=== PATIENT | female | born 2005 | race Caucasian/White ===

== ENCOUNTER → 2024-08-20 | Outpatient (CLI) | payer OTHER, SELFPAY ==
--- NOTE | 2024-08-20 14:25 | RAD_ITS ---
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 TECHNIQUE: XR Abdomen 1 View. COMPARISON: None. FINDINGS: BOWEL GAS PATTERN: No dilated bowel loops identified. Scattered stool throughout the colon with 2 markers at the level of the proximal transverse colon, one marker at the level of the distal descending colon, and 9 markers at the level of the rectosigmoid colon. FREE AIR: Not assessed on supine view. CALCIFICATIONS: No abnormal calcifications observed. BONES: Unremarkable. SOFT TISSUES: Intrauterine device in the pelvis. Metallic jewelry at the umbilicus. RAD/Abdomen Single View IMPRESSION: Sitz markers in the colon as above. Electronically Signed: Ainsley Hernández MD at 13:29 EST ,
== END | disposition home or self-care (01) ==
PROVIDERS: PCP Internal Medicine; Referring Provider Nurse Practitioner Acute Care; Visit Provider Nurse Practitioner Acute Care
DX: K59.04 Chronic idiopathic constipation (principal); R14.0 Abdominal distension (gaseous); R10.9 Unspecified abdominal pain
CPT/HCPCS: 74018

== ENCOUNTER → 2024-08-22 | Outpatient (CLI) | payer OTHER, SELFPAY ==
--- NOTE | 2024-08-22 13:20 | RAD_ITS ---
STUDY: X-RAY - ABDOMEN/PELVIS REASON FOR EXAM: Female, 19 years old. 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 COMPARISON: Abdominal x-ray dated August 20, 2024 FINDINGS: Normal visualized lung bases. There is an unremarkable bowel gas pattern. There is no demonstrated free abdominal air. IUD noted. All of the previous Sitzmarks have cleared the colon except 1 which is now in the rectum. Moderate stool is seen throughout the colon. Normal soft tissue structures. Normal visualized osseous structures. RAD/Abdomen Single View IMPRESSION: 1. All of the previous Sitzmarks have cleared the colon except 1 which is now in the rectum. Moderate stool is seen throughout the colon. Electronically Signed: David Lemus MD at 9:25 EST ,
== END | disposition home or self-care (01) ==
LOC: RAD 13:11
PROVIDERS: PCP Internal Medicine; Referring Provider Nurse Practitioner Acute Care; Visit Provider Nurse Practitioner Acute Care
DX: K59.04 Chronic idiopathic constipation (principal); R14.0 Abdominal distension (gaseous); R10.9 Unspecified abdominal pain
CPT/HCPCS: 74018

== ENCOUNTER → 2025-03-14 | Outpatient (CLI) | payer OTHER, SELFPAY ==
--- OUTSIDE RECORDS SUMMARY | 2025-03-14 10:38 | XMS RPT_ITS | CCD ---
Author Organization [facility] Care Team Providers Care Firm Administrator Name Role Phone Castillo Vick Unavailable Unavailable Unavailable Sujata Gonzalez Unavailable Spring Deepa CALI Primary Care Provider None, No PCP Unavailable Unavailable Macho LOPEZ, Ricky Bob Primary Care Provide r SEVERINO GATICA Admitting Unavail able SEVERINO GATICA Attending Unavail able RICKY PRITCHARD Primary Care Unavail able Macho LOPEZ, Ricky Bob Primary Care Provide r Ricky Pritchard Unavailable [phone] Robbie Olivera Unavailable Unavailable Brendan Carrillo MD Primary Care Provider MD BRENDAN CARRILLO Primary Care U MD BRENDAN Butt Attending U Ms. Robbie Whipple Attending ALEXX Knapp Attending Unavailable RICKY PRITCHARD Primary Care Unavail able RICKY PRITCHARDSTE Primary Care Unavail able ЕКАТЕРИНА HOLT Attending Unavailable Grazyna VENEGAS Attending Unavailable Grazyna VENEGAS Attending Unavailable BRENDAN CARRILLO Primary Care Unavailable RICKY PRITCHARD Primary Care Unavail able JAVAN IRAHETA Attending RICKY Hernandes Primary Care Unavail able RICKY PRITCHARD Attending Unavail able JAVAN IRAHETA Attending Irwin PRITCHARD, RICKY BOB Primary Care Unavail able MACHO, RICKY JONATHAN Primary Care Unavail able SERA MELVIN Attending Unavailable COLLETTE SAMUEL Attending Unavailable TAVALLAEE, BRENDAN M Primary Care Unavailable Joan Iraheta Attending Unavailable Tavallaee, Brendan Referring Unavailable Tavallaee, Brendan Primary Care Unavailable Joan Iraheta Attending Unavailable Joan Iraheta Referring Unavailable Tavallaee, Brendan Primary Care Unavailable Joan Iraheta Attending Unavailable Joan Iraheta Referring Unavailable Tavallaee, Brendan Primary Care Unavailable Joan Iraheta Attending Unavailable Tavallaee, Brendan Primary Care Unavailable Tavallaee, Brendan Referring Unavailable Candi Yoo Attending Unavailable Tavallaee, Brendan Referring Unavailable Tavallaee, Brendan Primary Care Unavailable Joan Iraheta Attending Unavailable Joan Iraheta Referring Unavailable Tavallaee, Brendan Primary Care Unavailable Jesusallaee Brendan LOPEZ Primary Care Provider [phone] JESUSALLADITYAEMEBRENDAN Tee Attending Unavailable TAVALLAEE, BRENDAN Tee Primary Care Unavailable TAVALLAEE, BRENDAN Tee Attending Unavailable TAVALLAEE, BRENDAN Tee Primary Care Unavailable TAVALLAEE, BRENDAN Tee Attending Unavailable TAVALLAEE, BRENDAN Tee Primary Care Unavailable TAVALLAEE, BRENDAN Tee Attending Unavailable TAVALLAEE, BRENDAN Tee Primary Care Unavailable TAVALLAEE, BRENDAN Tee Attending Unavailable TAVALLAEE, BRENDAN Tee Primary Care Unavailable TAVALLAEE, BRENDAN Tee Attending Unavailable TAVALLAEE, BRENDAN Tee Primary Care Unavailable TAVALLAEE, BRENDAN Tee Attending Unavailable TAVALLAEE, BRENDAN Tee Primary Care Unavailable TAVALLAEE, BRENDAN Tee Primary Care Unavailable ALEXANDRIA SHAFFER Attending Unavailable TAVALLAEE, BRENDAN M Primary Care Unavailable CORI HERNANDEZ Attending Unavailable TAVALLAEE, BRENDAN M Referring Unavailable TAVALLAEE, BRENDAN Tee Primary Care Unavailable BRENDAN CARRILLO Attending Unavailable BRENDAN CARRILLO Referring Unavailable BRENDAN CARRILLO Primary Care Unavailable BRENDAN CARRILLO Primary Care Unavailable ROBBIE OLIVERA Attending Unavailable Allergies Allergy Classification Reported Allergen(s) Allergy Type Date of Onset Reaction(s) Facility (3 sources) predniSONE; Translations: [PREDNISONE] Drug Allergy 08-14-2024 [facility] Repository (3 sources) predniSONE Drug Allergy 02-23-2025 [facility] Medications Current Medications Medication Drug Class(es) Dates Sig (Normalized) Sig (Original) amoxicillin 875 mg oral tablet (2 sources) Penicillin-class Antibacterial Start: 08-06-2024 End: 08-16-2024 take 1 tablet by mouth twice daily amoxicillin (Amoxil) 875 mg tablet Indications: Acute non-recurrent maxillary sinusitis Take 1 tablet (875 mg) by mouth 2 times a day for 10 days. 20 tablet 08/06/2024 08/16/2024 Active amoxicillin 875 mg / clavulanate 125 mg oral tablet (1 source) Penicillin-class Antibacterial Start: 03-02-2025 End: 03-12-2025 take 1 tablet by mouth twice daily amoxicillin-clavul anate (Augmentin) 875-125 mg tablet Indications: Acute bacterial sinusitis Take 1 tablet by mouth 2 times a day for 10 days. 20 tablet 03/02/2025 03/12/2025 Active azithromycin 250 mg oral tablet (1 source) Macrolide Antimicrobial Start: 06-27-2023 End: 07-02-2023 azithromycin (Zithromax Z-Charles) 250 mg tablet Indications: Non-recurrent acute serous otitis media of right ear Take 2 tablets (500 mg) on Day 1, followed by 1 tablet (250 mg) once daily on Days 2 through 5. 6 tablet 0 06/27/2023 07/02/2023 Active 12 hr cetirizine hydrochloride 5 mg / pseudoephedrine hydrochloride 120 mg extended release oral tablet (1 source) alpha-Adrenergic Agonist, Histamine-1 Receptor Antagonist Start: 03-02-2025 End: 03-16-2025 take 1 tablet by mouth twice daily cetirizine-pseudoe phedrine (ZyrTEC-D) 5-120 mg 12 hr tablet Indications: Acute bacterial sinusitis Take 1 tablet by mouth 2 times a day for 14 days. 28 tablet 03/02/2025 03/16/2025 Active ciprofloxacin 500 mg oral tablet (1 source) Quinolone Antimicrobial Start: 03-05-2024 End: 03-12-2024 take 1 tablet by mouth twice daily ciprofloxacin (Cipro) 500 mg tablet Indications: Colitis Take 1 tablet (500 mg) by mouth 2 times a day for 7 days. 14 tablet 03/05/2024 03/12/2024 Discontinued (Therapy completed) 1 ml dexamethasone phosphate 4 mg/ml injection (1 source) Corticosteroid Start: 08-12-2024 dexAMETHasone (Decadron) injection 4 mg Start: 08-12-2024 dexAMETHasone (Decadron) injection 4 mg dexamethasone 1 mg/ml / neomycin 3.5 mg/ml / polymyxin b [id number] unt/ml ophthalmic suspension (1 source) Aminoglycoside Antibacterial, Polymyxin-class Antibacterial, Corticosteroid Start: 03-02-2025 [id number]-[id number] sone (Maxitrol) 3.5mg/mL-10,000 unit/mL-0.1 % ophthalmic suspension 03/02/2025 Active [id number] 0.3 ml EPINEPHrine 1 mg/ml auto-injector (2 sources) alpha-Adrenergic Agonist, beta-Adrenergic Agonist, Catecholamine Start: 02-25-2025 End: 02-25-2026 EPINEPHrine (Epipen) 0.3 mg/ 0.3 mL injection syringe Indications: Allergic rhinitis, unspecified seasonality, unspecified trigger Inject 0.3 mL (0.3 mg) into the muscle if needed for anaphylaxis. Call 911 after use. 1 each 3 02/25/2025 02/25/2026 Active ergocalciferol 1.25 mg oral capsule (6 sources) Provitamin D2 Compound Start: 04-10-2023 End: 04-10-2024 take 1 capsule by mouth every week ergocalciferol (Vitamin D-2) 1.25 MG (29057 UT) capsule Indications: Vitamin D deficiency Take 1 capsule (50,000 Units) by mouth 1 (one) time per week. 12 capsule 3 04/11/2023 04/10/2024 Active Hair, skin and Nails (1 source) Hair, skin and N ails Quantity: 0 Refills: 0 Ordered: 13-Nov-2022 Domitila Stewart Generic Substitution Allowed hyoscyamine sulfate 0.125 mg oral tablet (20 sources) Start: 03-12-2024 End: 08-22-2024 take 1 tablet by mouth four times daily as needed for diarrhea hyoscyamine (Levsin) 0.125 mg tablet Indications: Colitis , Irritable bowel syndrome with diarrhea Take 1 tablet (0.125 mg) by mouth 4 times a day as needed for cramping or diarrhea for up to 10 days. 40 tablet 08/12/2024 Active Start: 01-02-2024 End: 05-15-2024 take 1 tablet by mouth twice daily hyoscyamine (Anaspaz, Levsin) 0.125 mg tablet Indications: Postprandial epigastric pain take 1 tablet by mouth twice a day 60 tablet 01/02/2024 05/15/2024 Discontinued (Therapy completed) Start: 04-10-2023 End: 07-09-2023 take 1 tablet by mouth twice daily hyoscyamine (Levsin) 0.125 mg tablet Indications: Postprandial epigastric pain Take 1 tablet (0.125 mg) by mouth 2 times a day. 60 tablet 1 05/10/2023 07/09/2023 Active End: 01-23-2024 take 1 tablet under the tongue every four hours as needed hyoscyamine (LEVSIN/SL) 0.[address] 1 (one) tablet (0.125 mg total) under the tongue every 4 (four) hours as needed for cramping . 01/23/2024 Discontinued Lactobacillus acidophilus (16 sources) Start: 08-12-2024 End: 08-12-2025 take 2 capsules by mouth once daily lactobacillus acidophilus (Acidophilus) capsule Indications: Colitis , Irritable bowel syndrome with diarrhea Take 2 capsules by mouth once daily. 08/12/2024 08/12/2025 Active Start: 06-12-2024 End: 08-12-2024 take 2 capsules by mouth once daily lactobacillus acidophilus (Acidophilus) capsule Indications: Colitis , Irritable bowel syndrome with diarrhea Take 2 capsules by mouth once daily. 60 capsule 11 06/12/2024 08/12/2024 Discontinued (Reorder) Start: 06-12-2024 End: 06-12-2025 take 2 capsules by mouth once daily lactobacillus acidophilus (Acidophilus) capsule Indications: Colitis , Irritable bowel syndrome with diarrhea Take 2 capsules by mouth once daily. 60 capsule 11 06/12/2024 06/12/2025 Active Start: 05-15-2024 End: 06-12-2024 take 2 capsules by mouth once daily lactobacillus acidophilus (Acidophilus) capsule Indications: Irritable bowel syndrome with diarrhea Take 2 capsules by mouth once daily. 60 capsule 11 05/15/2024 06/12/2024 Discontinued (Reorder) Start: 05-15-2024 End: 05-15-2025 take 2 capsules by mouth once daily lactobacillus acidophilus (Acidophilus) capsule Indications: Irritable bowel syndrome with diarrhea Take 2 capsules by mouth once daily. 60 capsule 11 05/15/2024 05/15/2025 Active Start: 05-10-2023 End: 05-15-2024 take 2 capsules by mouth once daily lactobacillus acidophilus (Acidophilus) capsule Indications: Irritable bowel syndrome with diarrhea Take 2 capsules by mouth once daily. 60 capsule 11 05/10/2023 05/15/2024 Discontinued (Reorder) Start: 05-10-2023 End: 05-09-2024 take 2 capsules by mouth once daily lactobacillus acidophilus (Acidophilus) capsule Indications: Irritable bowel syndrome with diarrhea Take 2 capsules by mouth once daily. 60 capsule 11 05/10/2023 05/09/2024 Active levonorgestrel 0.915300 mg/hr intrauterine system (20 sources) Progestin, Progestin-containing Intrauterine Device Start: 06-09-2024 Levonorgestrel 14 mcg/24 hours (3 yrs) 13 mg IUD 1 Each Start: 06-09-2024 1 each, Intrau terine, 8 Year Duration, First dose on 06/09/24 at 1645, CATEGORY C HAZARDOUS DRUG use safe handling precautions. Use reference link to view PPE guidelines. Start: 06-29-2019 End: 06-09-2024 levonorgestreL (KYLEENA) IUD iud 1 (one) each by Intrauterine route once . 06/29/2019 06/09/2024 Discontinued levonorgestreL ( Kyleena) 17.5 mcg/24 hrs (5 yrs) 19.5 mg intrauterine device by intrauterine route. Active Kyleena IUD Parveen tity: 0 Refills: 0 Ordered: 08-Mar-2021 DO Active loratadine 10 mg oral tablet (2 sources) Start: 02-25-2025 End: 05-26-2025 take 1 tablet by mouth once daily loratadine (Claritin) 10 mg tablet Indications: Allergic rhinitis, unspecified seasonality, unspecified trigger Take 1 tablet (10 mg) by mouth once daily. 30 tablet 2 02/25/2025 05/26/2025 Active metroNIDAZOLE 500 mg oral tablet (1 source) Nitroimidazole Antimicrobial Start: 03-05-2024 End: 03-12-2024 take 1 tablet by mouth three times daily metroNIDAZOLE (Flagyl) 500 mg tablet Indications: Colitis Take 1 tablet (500 mg) by mouth 3 times a day for 7 days. 21 tablet 03/05/2024 03/12/2024 Discontinued (Therapy completed) olopatadine 2 mg/ml ophthalmic solution (4 sources) Histamine-1 Receptor Inhibitor Start: 02-25-2025 take 1 drop(s) into the eye(s) twice daily olopatadine (Pataday Once Daily Relief) 0.2 % ophthalmic solution Indications: Mucopurulent conjunctivitis of both eyes Administer 1 drop into both eyes 2 times a day. 5 mL 02/25/2025 Active Start: 02-23-2025 End: 02-25-2025 take 1 drop(s) into the eye(s) once daily olopatadine (Pataday Once Daily Relief) 0.2 % ophthalmic solution Indications: Mucopurulent conjunctivitis of both eyes Administer 1 drop into both eyes once daily. 5 mL 02/23/2025 02/25/2025 Discontinued (Reorder) ondansetron 4 mg disintegrating oral tablet (5 sources) Serotonin-3 Receptor Antagonist Start: 08-06-2024 End: 08-13-2024 take 1 tablet by mouth every eight hours for nausea ondansetron ODT (Zofran-ODT) 4 mg disintegrating tablet Indications: Acute non-recurrent maxillary sinusitis Dissolve 1 tablet (4 mg) in the mouth every 8 hours if needed for nausea or vomiting for up to 7 days. 20 tablet 08/06/2024 08/13/2024 Active Start: 03-12-2024 End: 03-19-2024 take 1 tablet by mouth every eight hours for nausea ondansetron (Zofran) 4 mg tablet Indications: Irritable bowel syndrome with diarrhea , Colitis Take 1 tablet (4 mg) by mouth every 8 hours if needed for nausea or vomiting for up to 7 days. 20 tablet 03/12/2024 03/19/2024 Start: 11-13-2022 take 1 tablet by deshawn th every six hours ondansetron 4 mg oral tablet, disintegrating ; 1 tab(s) orally every 6 hours Quantity: 12 Refills: 0 Ordered: 13-Nov-2022 Robbie Olivera Start: 13-Nov-2022 Generic Substitution Allowed polyethylene glycol 3350 22524 mg powder for oral solution (1 source) Osmotic Laxative Start: 03-25-2024 End: 04-24-2024 polyethylene glycol (Glycolax, Miralax) 17 gram packet Indications: Constipation, unspecified constipation type Take 17 g by mouth once daily. Mix 1/2 cap (8.5g) into 4 ounces of fluid. 30 packet 03/25/2024 04/24/2024 Active polymyxin b 49793 unt/ml / trimethoprim 1 mg/ml ophthalmic solution (3 sources) Dihydrofolate Reductase Inhibitor Antibacterial, Polymyxin-class Antibacterial Start: 02-23-2025 End: 03-05-2025 take 1 drop(s) into the eye(s) every four hours polymyxin B sulf-trimethoprim (Polytrim) ophthalmic solution Indications: Mucopurulent conjunctivitis of both eyes Administer 1 drop into both eyes every 4 hours for 10 days. 10 mL 02/23/2025 03/05/2025 Active predniSONE 10 mg oral tablet (2 sources) Start: 08-12-2024 End: 08-17-2024 take 1 tablet by mouth three times daily predniSONE (Deltasone) 10 mg tablet Indications: Hives Take 1 tablet (10 mg) by mouth 3 times a day for 5 days. 15 tablet 08/12/2024 08/17/2024 Active Start: 06-27-2023 End: 07-02-2023 take 1 tablet by mouth once daily predniSONE (Deltasone) 20 mg tablet Indications: Acute upper respiratory infection Take 1 tablet (20 mg) by mouth once daily for 5 days. Start tomorrow 5 tablet 0 06/27/2023 07/02/2023 Active Completed/Discontinued Medications Medication Drug Class(es) Dates Sig (Normalized) Sig (Original) benzonatate 100 mg oral capsule (1 source) Non-narcotic Antitussive Start: 11-02-2021 take 1-2 capsules by mouth three times daily as needed for cough Benzonatate 100 MG Oral Capsule TAKE 1 TO 2 CAPSULES BY MOUTH UP TO 3 TIMES A DAY NEEDED FOR COUGH Quantity: 20 Refills: 0 Ordered: 02-Nov-2021 DO Start : 02-Nov-2021 Active budesonide 3 mg delayed release oral capsule (3 sources) Corticosteroid Start: 06-12-2024 End: 08-12-2024 take 1 capsule by mouth every twenty-four hours budesonide EC (Entocort EC) 3 mg 24 hr capsule Indications: Colitis Take 3 capsules (9 mg) by mouth once daily. 90 capsule 1 06/12/2024 08/12/2024 Discontinued (Therapy completed) busPIRone hydrochloride 10 mg oral tablet (16 sources) Start: 09-11-2022 End: 01-23-2024 take 1 tablet by mouth three times daily as needed for anxiety busPIRone (BUSPAR) 10 MG tablet Indications: Anxiety Take 1 (one) tablet (10 mg total) by mouth 3 (three) times a day as needed (anxiety) . 90 tablet 09/11/2022 01/23/2024 Discontinued Start: 08-04-2021 End: 08-04-2022 take 1 tablet by mouth three times daily as needed for anxiety busPIRone (BUSPAR) 10 MG tablet Indications: Anxiety Take 1 (one) tablet (10 mg total) by mouth 3 (three) times a day as needed (anxiety) . 90 tablet 3 08/04/2021 08/04/2022 Active Start: 05-23-2021 End: 05-23-2022 take 1 tablet by mouth three times daily as needed for anxiety busPIRone (BUSPAR) 5 MG tablet Indications: Anxiety Take 1 (one) tablet (5 mg total) by mouth 3 (three) times a day as needed (anxiety) . 90 tablet 1 05/23/2021 08/04/2021 Discontinued (Reorder) busPIRone Quanti ty: 0 Refills: 0 Ordered: 13-Nov-2022 Domitila Stewart Generic Substitution Allowed dicyclomine hydrochloride 10 mg oral capsule (9 sources) Anticholinergic Start: 10-31-2021 End: 12-07-2022 take 1 capsule by mouth three times daily as needed dicyclomine (BENTYL) 10 MG capsule Indications: Irritable bowel syndrome with diarrhea Take 1 (one) capsule (10 mg total) by mouth 3 (three) times a day as needed . 90 capsule 1 12/07/2021 11/17/2022 Discontinued (Therapy completed) escitalopram 20 mg oral tablet (14 sources) Serotonin Reuptake Inhibitor Start: 08-04-2021 End: 10-31-2021 take 1 tablet by mouth once daily escitalopram oxalate (LEXAPRO) 20 MG tablet Indications: Anxiety Take 1 (one) tablet (20 mg total) by mouth daily . 90 tablet 3 08/04/2021 10/31/2021 Discontinued Start: 08-04-2021 End: 08-04-2021 take 2 tablets by mouth once daily escitalopram oxalate (LEXAPRO) 10 MG tablet Indications: Anxiety Take 2 (two) tablets (20 mg total) by mouth daily . 90 tablet 3 08/04/2021 08/04/2021 Discontinued (Reorder) Start: 06-21-2021 End: 08-04-2021 escitalopram oxalate (LEXAPR O) 10 MG tablet Indications: Anxiety Take 1.5 (one and a half) tablets (15 mg total) by mouth daily . 135 tablet 3 06/21/2021 08/04/2021 Discontinued (Reorder) Start: 05-23-2021 escitalopram o xalate (LEXAPRO) 10 MG tablet Indications: Anxiety Take 1.5 (one and a half) tablets (15 mg total) by mouth daily . 45 tablet 2 05/23/2021 Active Start: 03-10-2021 End: 05-23-2021 take 1 tablet by mouth once daily Escitalopram Oxalate 10 MG Oral Tablet Take 1 tablet daily Quantity: 30 Refills: 1 Ordered: 11-Apr-2021 Sujata Poe Start : 10-Mar-2021 Active Start: 03-10-2021 take 1 tablet by deshawn th once daily Escitalopram Oxalate 5 MG Oral Tablet TAKE 1 TABLET DAILY. Quantity: 30 Refills: 11 Ordered: 10-Mar-2021 Sujata Poe Start : 10-Mar-2021 Active esomeprazole 40 mg delayed release oral capsule (15 sources) Proton Pump Inhibitor Start: 01-23-2024 End: 05-15-2025 take 1 capsule by mouth once daily before mealtime esomeprazole (NexIUM) [address] capsule Indications: Gastroesophageal reflux disease, unspecified whether esophagitis present Take 1 capsule (40 mg) by mouth once daily in the morning. Take before meals. 30 capsule 11 05/15/2024 08/12/2024 Discontinued (Ineffective) Start: 04-10-2023 End: 04-10-2024 take 1 capsule by mouth once daily before mealtime esomeprazole (NexIUM) [address] capsule Indications: Postprandial epigastric pain Take 1 capsule (20 mg) by mouth once daily in the morning. Take before meals. Do not open capsule. 90 capsule 0 05/25/2023 Active End: 01-23-2024 take 20 mg by mouth once daily before breakfast esomeprazole (NEXIUM) 20 mg packet Take 20 (twenty) mg by mouth every morning before breakfast . 01/23/2024 Discontinued (Therapy completed) famotidine 40 mg oral tablet (10 sources) Histamine-2 Receptor Antagonist Start: 08-04-2021 End: 11-17-2022 take 1 tablet by mouth once daily famotidine (PEPCID) 40 MG tablet Indications: Gastroesophageal reflux disease, unspecified whether esophagitis present Take 1 (one) tablet (40 mg total) by mouth daily . 90 tablet 1 10/31/2021 11/17/2022 Discontinued (Therapy completed) FLUoxetine 20 mg oral capsule (20 sources) Serotonin Reuptake Inhibitor Start: 10-23-2022 End: 05-15-2025 take 1 capsule by mouth once daily FLUoxetine (PROzac) 20 mg capsule Indications: Mild depression Take 1 capsule (20 mg) by mouth once daily. 30 capsule 11 05/15/2024 08/12/2024 Discontinued (Therapy completed) Start: 10-31-2021 take 1 capsule by [facility] once daily FLUoxetine (PROZAC) 20 MG capsule Indications: Generalized anxiety disorder Take 1 (one) capsule (20 mg total) by mouth daily . 90 capsule 3 10/31/2021 Active Start: 10-25-2021 End: 10-31-2021 take 1 capsule by mouth once daily, then take 2 capsules by mouth once daily FLUoxetine (PROZAC) 10 MG capsule TAKE 1 CAPSULE BY MOUTH EVERY DAY FOR 7 DAYS THEN INCREASE TO 2 CAPSULES EVERYDAY 0 10/25/2021 10/31/2021 Discontinued (Reorder) PROzac Quantity: 0 Refills: 0 Ordered: 13-Nov-2022 Domitila Stewart Generic Substitution Allowed iohexol (OMNIPaque) 12 mg iodine/mL oral contrast 500 mL (1 source) Start: 03-19-2024 End: 03-19-2024 500 mL, oral, Once in imaging, Starting on Sun03/19/24 at 1219, For 1 dose, Administer over 20-60 minutes as directed by imaging protocol and/or imaging provider. CONTRAST - for procedural imaging use only. iohexol (OMNIPaque) 350 mg iodine/mL solution 75 mL (1 source) Start: 03-19-2024 End: 03-19-2024 75 mL, intravenous, Once in imaging, Starting on Sun03/19/24 at 1219, For 1 dose 1 ml ketorolac tromethamine 15 mg/ml injection (2 sources) Nonsteroidal Anti-inflammatory Drug, Cyclooxygenase Inhibitor Start: 06-09-2024 End: 06-09-2024 ketorolac (TORADOL) injection 15 mg Start: 06-09-2024 End: 06-09-2024 inject 15 mg by intramuscular injection once at mealtime 15 mg, Intramuscular, Once, On 06/09/24 at 1645, For 1 dose, Give with Food Lactase (9 sources) Lactaid TABS Rodri ntity: 0 Refills: 0 Ordered: 11-Feb-2021 DO Active loperamide hydrochloride 2 mg oral tablet (4 sources) Opioid Agonist Start: 04-27-2022 End: 11-17-2022 loperamide (IMODIUM A-D) 2 mg tablet Take 1 (one) tablet (2 mg total) by mouth 4 (four) times a day as needed for diarrhea (take 2 tabs initally then 1 tab after each diarrhea stool up to 8 tabs max daily) . 20 tablet 1 04/27/2022 11/17/2022 Discontinued (Therapy completed) Meperidine (2 sources) Opioid Agonist Start: 05-08-2024 End: 05-08-2024 intravenous, As needed, Starting on Sun05/08/24 at 0908, Intraprocedure Start: 05-08-2024 End: 05-08-2024 intravenous, As needed, Star ting on Ciera 05/08/24 at 0901, Intraprocedure 2 ml midazolam 5 mg/ml injection (2 sources) Benzodiazepine Start: 05-08-2024 End: 05-08-2024 intravenous, Administer over 5 Minutes, As needed, Starting on Ciera 05/08/24 at 0906, Intraprocedure omeprazole 20 mg delayed release oral capsule (12 sources) Proton Pump Inhibitor Start: 02-11-2021 End: 08-04-2021 take 1 capsule by mouth once daily Omeprazole 20 MG Oral Capsule Delayed Release TAKE 1 CAPSULE Daily Quantity: 90 Refills: 3 Ordered: 07-Apr-2021 Sujata Poe Start : 07-Apr-2021 Active pantoprazole 40 mg delayed release oral tablet (4 sources) Proton Pump Inhibitor Start: 04-27-2022 End: 04-27-2023 take 1 tablet by mouth once daily pantoprazole (PROTONIX) 40 MG tablet Take 1 (one) tablet (40 mg total) by mouth daily . 30 tablet 04/27/2022 11/17/2022 Discontinued (Therapy completed) Problems Active Problems Problem Classification Problem Date Documented Da te Episodic/Chronic Anxiety disorders (20 sources) Generalized anxiety disorder; Translations: [Generalized anxiety disorder] Onset: 1 Chronic Bacterial infection; unspecified site (2 sources) Other specified bacterial agents as the cause of diseases classified elsewhere; Translations: [Other specified bacterial agents as the cause of diseases classified elsewhere] Onset: 5 Episodic Esophageal disorders (20 sources) Gastroesophageal reflux disease; Translations: [Esophageal reflux] Onset: 1 Chronic Immunizations and screening for infectious disease (12 sources) Patient encounter status; Translations: [Screening examination for venereal disease] Episodic Inflammation; infection of eye (except that caused by tuberculosis or sexually transmitteddisease) (6 sources) Mucopurulent conjunctivitis of bilateral eyes; Translations: [Other mucopurulent conjunctivitis, bilateral] Onset: 5 02-23-2025 Episodic Mood disorders (20 sources) Mild depression; Translations: [Depressive disorder, not elsewhere classified] Onset: 2 08-04-2021 Chronic Mood disorders (2 sources) Mood disorders; Translations: [Depression, unspecified] Onset: 3 Nutritional deficiencies (1 source) Vitamin D deficiency; Translations: [Vitamin D deficiency, unspecified] 04-10-2023 Chronic Other connective tissue disease (1 source) Other specified soft tissue disorders; Translations: [Swelling of right hand] Onset: 5 Episodic Other female genital disorders (2 sources) Vaginal discharge; Translations: [Other specified noninflammatory disorders of vagina] Episodic Other female genital disorders (2 sources) Other specified noninflammatory disorders of vagina; Translations: [Other specified noninflammatory disorders of vagina] Onset: 4 Episodic Other gastrointestinal disorders (20 sources) Irritable bowel syndrome with diarrhea; Translations: [Irritable bowel syndrome with diarrhea] Onset: 2 Chronic Other gastrointestinal disorders (1 source) Chronic idiopathic constipation; Translations: [Chronic idiopathic constipation] Onset: 5 Chronic Other gastrointestinal disorders (2 sources) Irritable bowel syndrome with diarrhea; Translations: [Irritable bowel syndrome with diarrhea] Onset: 3 Chronic Other gastrointestinal disorders (2 sources) Constipation; Translations: [Constipation, unspecified] 05-08-2024 Episodic Other injuries and conditions due to external causes (1 source) Unspecified injury of right wrist, hand and finger(s), initial encounter; Translations: [Hand trauma, right, initial encounter] Onset: 5 Episodic Other upper respiratory disease (1 source) Allergic rhinitis; Translations: [Allergic rhinitis, unspecified] 02-25-2025 Chronic Other upper respiratory disease (2 sources) Allergic rhinitis, unspecified; Translations: [Allergic rhinitis, unspecified] Onset: 5 Chronic Other upper respiratory infections (20 sources) Sore throat symptom; Translations: [Acute pharyngitis] Onset: 3 Resolved: 3 03-13-2023 Episodic Otitis media and related conditions (1 source) Acute non-suppurative otitis media - serous; Translations: [Acute serous otitis media, right ear] 06-27-2023 Episodic Unclassified (2 sources) Annual Exam Onset: 3 Past or Other Problems Problem Classification Problem Date Documented Da te Episodic/Chronic Abdominal pain (20 sources) Pain in female pelvis; Translations: [Unspecified symptom associated with female genital organs] Onset: 08-04-2021 Resolved: 03-13-2023 08-04-2021 Episodic Allergic reactions (3 sources) Urticaria; Translations: [Urticaria, unspecified] Onset: 08-12-2024 08-12-2024 Episodic Contraceptive and procreative management (20 sources) Intrauterine contraceptive device in situ; Translations: [Presence of intrauterine contraceptive device] Onset: 08-04-2021 08-04-2021 Episodic Comment on above: 06/2019, KYLEENA; Headache; including migraine (20 sources) Headache; Translations: [Headache] Onset: 08-04-2021 Resolved: 03-13-2023 08-04-2021 Episodic Malaise and fatigue (3 sources) Fatigue; Translations: [Other fatigue] Onset: 11-13-2022 03-19-2023 Episodic Nausea and vomiting (20 sources) Nausea and vomiting; Translations: [Nausea with vomiting] Onset: 08-04-2021 Resolved: 03-13-2023 08-04-2021 Episodic Comment on above: NAUSEA Noninfectious gastroenteritis (11 sources) Noninfective gastroenteritis and colitis, unspecified; Translations: [Colitis] Onset: 03-05-2024 Episodic Open wounds of extremities (2 sources) Laceration without foreign body of left ring finger without damage to nail, initial encounter; Translations: [Laceration without foreign body of left ring finger without damage to nail, initial encounter] Onset: 09-10-2023 Episodic Other circulatory disease (20 sources) Peripheral vascular disease; Translations: [Other symptoms involving cardiovascular system] Onset: 03-13-2023 Resolved: 03-25-2024 03-13-2023 Episodic Other female genital disorders (20 sources) Female deep pain on intercourse; Translations: [Dyspareunia] Onset: 03-13-2023 Resolved: 03-13-2023 03-13-2023 Chronic Other gastrointestinal disorders (4 sources) Constipation, unspecified; Translations: [Constipation, unspecified] Onset: 03-25-2024 Episodic Other non-traumatic joint disorders (20 sources) Acute ankle pain; Translations: [Pain in joint, ankle and foot] Onset: 03-13-2023 Resolved: 03-13-2023 03-13-2023 Episodic Unclassified (6 sources) Finding of menstrual bleeding; Translations: [Menstruation] Comment on above: Onset age 13 years; Unclassified (15 sources) Onset: 03-19-2023 Resolved: 02-25-2025 03-19-2023 Urinary tract infections (2 sources) Urinary tract infection, site not specified; Translations: [Urinary tract infection, site not specified] Onset: 07-24-2023 Episodic Results Test Name Value Interpretation Reference Range [facility] HNO ID: [id number] Author: HARMAN ZHU RT(R) Service: Radiology Author Type: Technologist Type: Allied Health Filed: 12/21/2024 11:38 Note Text: Radiology Service Progress Note PATIENT NAME: Nathalie Lundberg DATE OF SERVICE: December 21, 2024 TIME: 11:38 AM PATIENT IDENTITY VERIFICATION COMPLETED USING TWO (2) IDENTIFIERS: Name and Date of confirmed by patient verbally. FALL SCREENING: Has the patient had 2 falls in the last year or 1 fall with injury or currently using an Ambulatory Assistive Device (Walker, Cane, Wheelchair, Crutches, etc.)? Emergency Room Patient: Screened in ED PATIENT GENDER DATA: Assigned female at . status: : No status: NO. PATIENT RELEVANT IMPLANT DATA REVIEWED: Not Applicable PATIENT PRESENTS WITH AN IMPLANTABLE OR ATTACHED FLYING II INSTRUCTOR: No RADIOLOGY DEPARTMENT: General X-ray: Exam(s) Completed: Upper Extremity X-Ray(s): Hand, right PERIPHERAL IV DATA: Not applicable SIGNED BY: RT Julien(R) December 21, 2024 11:38 AM [facility] ED NOTEon 12-21-2024 ED NOTE HNO ID: [id number] Author: GLORIA HARRIS, RN Service: Nursing Author Type: Registered Nurse Type: ED Notes Filed: 12/21/2024 12:14 Note Text: MARIAELENA wrap applied. Pt verbalizes understanding of discharge instructions. Pt able to ambulate out of ED. [facility] ED NOTE HNO ID: [id number] Author: GLORIA HARRIS, RN Service: Nursing Author Type: Registered Nurse Type: ED Notes Filed: 12/21/2024 10:46 Note Text: Pt reports she smashed her R hand by outdoor glass table on Sunday morning, thought it would get better, but the swelling hasn't gone down and pain isn't getting better Normal [facility] ED PROV NOTEon 12-21-2024 ED PROV NOTE HNO ID: [id number] Author: COLLETTE SAMUEL MD Service: Emergency Medicine Author Type: Physician Type: ED Provider Notes Filed: 12/21/2024 12:28 Note Text: ED Provider Note Patient Name: Nathalie Lundberg : 2005 SERVICE DATE: 12/21/24 History Patient presents with: Hand Pain Nathalie Lundberg is a 19 year old female with history of no chronic medical problems who presents with Hand Pain. Patient took nothing for this prior to arrival. - Symptoms began 2 days prior to arrival. - Severity: mild - Timing: constant - Quality: dull - Hand Pain is exacerbated by movement palpation. - Hand Pain is not exacerbated by elevation. - Symptoms are associated with nothing. - Symptoms are not associated with any other injury. - Improved by rest. - Not improved by cold compresses Dropped a patio table on right hand 2 days ago . Pain and swelling mostly dorsal hand. No skin injury . History reviewed. No pertinent past medical history. History reviewed. No pertinent surgical history. No family history on file. Social History Tobacco Use - Smoking status: Never - Smokeless tobacco: Never Vaping Use - Vaping status: current everyday user - Substances: Nicotine Substance and Sexual Activity - Alcohol use: Not on file Comment: rarely - Drug use: Yes Frequency: 2.0 times per week Types: Marijuana - Sexual activity: Not on file ALLERGIES No Known Allergies Review of Systems Constitutional: Negative for chills and fever. Skin: Negative for color change, rash and wound. Allergic/Immunologic: Negative for environmental allergies, food allergies and immunocompromised state. Neurological: Negative for weakness and numbness. Physical Exam Vitals [12/21/24 1036] BP Pulse Temp Temp src Resp SpO2 Weight Height 113/75 77 36.7 ?C (98.1 ?F) -- 16 99 % 63.5 kg (140 lb) -- Physical Exam Vitals and nursing note reviewed. Constitutional: General: She is not in acute distress. Appearance: Normal appearance. She is not ill-appearing, toxic-appearing or diaphoretic. HENT: Head: Normocephalic and atraumatic. Pulmonary: Effort: Pulmonary effort is normal. No respiratory distress. Musculoskeletal: General: Swelling and tenderness present. No deformity. Comments: Dorsal right hand edema and tender , no ecchymosis, no deformity Skin: General: Skin is warm. Capillary Refill: Capillary refill takes less than 2 seconds. Findings: No bruising or rash. Neurological: General: No focal deficit present. Mental Status: She is alert and oriented to person, place, and time. Psychiatric: Mood and Affect: Mood normal. Behavior: Behavior normal. Thought Content: Thought content normal. Judgment: Judgment normal. Diagnostic Testing ED Labs Ordered and Reviewed - No data to display Procedures ED Course / Clinical Impression Clinical Impressions as of 12/21/24 1228 Swelling of right hand Hand trauma, right, initial encounter MDM / Disposition / Plan Blunt trauma crush type injury right hand with swelling over the dorsum. No discoloration no breaks in skin no malrotation of digits no neurovascular changes. Full range of motion with discomfort when making fist and with extension of wrist. X-ray showed no acute fractures interpreted myself radiology overread. Recommending continue ice rest Mariaelena wrap and NSAID as needed follow-up as needed with orthopedics. No indication for transfer or admission. History and Record Review External record(s) reviewed: no prior records. Differential Diagnoses - Soft tissue injury right hand is more likely for the following reason(s): suggested by HANDP - Right hand fracture is less likely for the following reason(s): HANDP not suggestive Management I performed an independent interpretation of the following:imaging Imaging: My interpretation is No acute fracture Re-evaluation patient ambulatory with stable gait and vital signs in acceptable range Collette Samuel MD Disposition The patient was discharged. See MDM narrative Counseled patient regarding radiology results. SIGNATURE: Collette Samuel MD - COLLETTE SAMUEL 12/21/24 1228 Normal [facility] XR HAND 3V PA/LAT/OBL RTon 0 12-21-2024 XR HAND 3V PA/LAT/OBL RT * * *Final Report* * * DATE OF EXAM: Dec 21 2024 11:37AM LDX [id number] - XR HAND 3V PA/LAT/OBL RT / PROCEDURE REASON: Trauma * * * * Physician Interpretation * * * * EXAM TITLE: XR HAND 3V PA/LAT/OBL RT DATE: 12/21/2024 12:14 PM INDICATION: Right hand pain secondary to injury COMPARISON: None. FINDINGS: No fracture or dislocation. Small sclerotic density at the distal radius could be a bone island. IMPRESSION: No acute radiographic abnormality. Spring Tier: MELCHOR Transcribe Date/Time: Dec 21 2024 12:14P Dictated by : OZZIE TURNER MD This examination was interpreted and the report reviewed and electronically signed by: OZZIE TURNER MD on Dec 21 2024 12:15PM EST [id number] Normal [facility] Abdomen Single Viewon 2024 Abdomen Single View [facility] Imaging Services [address] [place] [id number] Abdomen Single View MR#: [id number] Acct: [id number] Name: NATHALIE LUNDBERG Rep #: [id number] : 2005 F 19 From: David slaughter MD PCP: Dr. Brendan Carrillo MD Status: REG CLI Study: Abdomen Single View Date of Exam: 08/22/24 Exam# [id number] Ordering Dr: Joan Iraheta ACUPUNCTURIST- C [id number] STUDY: X-RAY - ABDOMEN/PELVIS REASON FOR EXAM: Female, 19 years old. 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 COMPARISON: Abdominal x-ray dated August 20, 2024 FINDINGS: Normal visualized lung bases. There is an unremarkable bowel gas pattern. There is no demonstrated free abdominal air. IUD noted. All of the previous Sitzmarks have cleared the colon except 1 which is now in the rectum. Moderate stool is seen throughout the colon. Normal soft tissue structures. Normal visualized osseous structures. RAD/Abdomen Single View IMPRESSION: 1. All of the previous Sitzmarks have cleared the colon except 1 which is now in the rectum. Moderate stool is seen throughout the colon. Electronically Signed: David Lemus MD at 9:25 EST , CC: AMANDA Iraheta; Dr. Brendan Carrillo MD Spring Tier: Signed Normal [facility] Abdomen Single Viewon 2024 Abdomen Single View [facility] Imaging Services [address] [place], [place] [id number] Abdomen Single View MR#: [id number] Acct: [id number] Name: NATHALIE LUNDBERG Rep #: [id number] : 2005 F 19 From: Ainsley chisholm MD PCP: Dr. Brendan Carrillo MD Status: REG CLI Study: Abdomen Single View Date of Exam: 08/20/24 Exam# [id number] Ordering Dr: Joan Iraheta [id number] 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 TECHNIQUE: XR Abdomen 1 View. COMPARISON: None. FINDINGS: BOWEL GAS PATTERN: No dilated bowel loops identified. Scattered stool throughout the colon with 2 markers at the level of the proximal transverse colon, one marker at the level of the distal descending colon, and 9 markers at the level of the rectosigmoid colon. FREE AIR: Not assessed on supine view. CALCIFICATIONS: No abnormal calcifications observed. BONES: Unremarkable. SOFT TISSUES: Intrauterine device in the pelvis. Metallic jewelry at the umbilicus. RAD/Abdomen Single View IMPRESSION: Sitz markers in the colon as above. Electronically Signed: Ainsley Hernández MD at 13:29 EST , CC: AMANDA Iraheta; Dr. Brendan Carrillo MD Spring Tier: Signed Normal [facility] Gastroenterology Visit Repor ton 08-14-2024 Gastroenterology Visit Report [facility] [address] [place] [address] OFFICE VISIT Date of Service: 08/14/24 MR#: [id number] Acct: [id number] Name: NATHALIE LUNDBERG Rep #: [id number] : 2005 Provider: AMANDA kramer Age/Sex: 19/F [place] [facility] [place]: Signed Intake Vital Signs 10/19/22 10:00 08/14/24 08:59 Height 5 ft 5 in 5 ft 5 in Weight: 139 lb 4 oz BMI 23.1 BP 99/61 Respiration 16 Pulse 69 Pulse Oximetry (%) 98 Oxygen Delivery Method room air Intake Visit Reasons: EST CARE Chief Complaint: abdominal pain Slip Laster Required: No Is patient in pain?: No Allergies prednisone Adverse Reaction (Intermediate, Verified 08/14/24 08:55) Hives Medications ???Medication ???Instructions ???Recorded ???Confirmed ???Type fluoxetine 20 mg capsule (Prozac) 20 mg PO DAILY 10/11/22 08/14/24 History esomeprazole magnesium 40 mg 40 mg PO QDAY 07/17/24 08/14/24 History capsule,delayed release levonorgestrel 17.5 mcg/24 hr (up 1 device intrauterine ONCE 07/17/24 08/14/24 History to 5 yrs) 19.5mg intrauterine device Nurse's Note: Has had stomach issues her whole life but was just recently diagnosed with colitis and IBS when she had her colonoscopy 04/17/24. Last EGD was 05/26/22. Has nausea and vomiting. Weight has been fluctuating between 120 and 150. Diarrhea and constipation is routine but has not had any blood in her stool. Cramping in lower abdomen, bloating, and tender to touch. Has had bad nausea all week. Recently had a reaction to prednisone, broke out into hives. [facility] Medical History Colitis Pelvic pain Nausea vomiting Headache Deep dyspareunia in female Right ankle pain IUD (intrauterine device) in place Irritable bowel syndrome with diarrhea Mild depression GERD (gastroesophageal reflux disease) Anxiety Laceration of right index finger Contusion of right index finger Injury of right index finger Social History Smoking Status: Never smoker alcohol intake: never HPI HPI Chief Complaint: abdominal pain Details: NATHALIE LUNDBERG, is a 19 F who presents to the office today for 19y/o female presents for initial consultation with a h/o GERD and IBD-D. Colon: 05/08/2024 revealed mild, generalized non-bleeding erythema and friable mucosa in the sigmoid and rectum; focal active colitis likely infections or NSAID related. CT 03/22/2024 suggestive of constipation. ABD US 03/20/2023 unremarkable. Famotidine 40mg - history pantoprazole 40mg - history loperamide 2mg - history dicyclomine 10mg - history Esomeprazole 40mg - presently Family h/o IBD Labs 03/19/2024 Na 134, CBC and Amylase unremarkable. 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 - Aussie dog ROS Const Constitutional: Positive for fatigue, headache(s) and weight change; No fever(s) ENT ENT: Positive for headache(s); No difficulty swallowing Gastro GI: Positive for abdominal pain, bloating, change in bowel habits, constipation, diarrhea, heartburn, Vomiting blood/hematemesis and nausea/dyspepsia; No belching, change in stool character, coffee ground emesis, cramping, difficulty swallowing, feeling full early, excessive flatus, incontinent of stools, Blood in stool, loose stools, Black,tarry stools, pain with swallowing, vomiting or other Musc Musculoskeletal: Positive for joint pain, back pain, muscle cramps and stiffness Skin Skin: Positive for dry skin, itchy eyes and rash; No yellowing of the eye Neuro Neurology: Positive for headache(s) Psych Psychiatric: Positive for anxiety, Positive for depression and Positive for inattentiveness Endo Endocrine: Positive for fatigue and weight change Aller/Imm Allergy/Immunologic: Positive for itchy eyes Jeet/Lymp Hematologic/Lymphatic: Positive for easy bruising; No easy bleeding Exam Const General: healthy appearing, no acute distress and well developed Nutritional Appearance: average body habitus and well nourished Orientation: alert and oriented x3 HENMT Head: normocephalic Ears: hearing grossly normal bilaterally Mouth: moist mucous membranes Teeth and gingiva: dentition normal Eyes Conjunctivae: conjunctivae normal Sclera: sclerae normal Neck Neck: normal visual inspec (more content not included)... Normal [facility] BV/VAGINITIS PANEL DNA PROBE on 06-10-2024 MELY: Not detected Normal NOT DETECTED [facility] Comment on above: Performed By: #### 1 [id number] #### [facility] [place] [address] Spanish Tutor: Duke Manning MD GARDNERELLA: Not detected Normal NOT DETECTED [facility] Comment on above: Performed By: #### 1 [id number] #### [facility] [place] [address] Spanish Tutor: Duke Manning MD TRICHOMONAS: Not detected Normal NOT DETECTED [facility] Comment on above: Performed By: #### 1 [id number] #### [facility] [place] [address] Spanish Tutor: Duke Manning MD Vaginitis DNA Probeson 06-10 Mely sp rRNA Probe Ql (Vag fld) Not detected NOT DETECTED [facility] G. vaginalis rRNA Probe Ql (Genital specimen) Not detected NOT DETECTED [facility] T. vaginalis rRNA Probe Ql (Genital specimen) Not detected NOT DETECTED [facility] COLONOSCOPYon 05-08-2024 Colonoscopy Table formatting fro m the original result was not included. Impression Mild erythematous, friable mucosa in the sigmoid colon and rectum Performed pancolonic forceps biopsies to rule out colitis and IBD Findings Mild, generalized erythematous and friable mucosa in the sigmoid colon and rectum; no bleeding was identified; Performed multiple random pancolonic forceps biopsies to rule out colitis and IBD Recommendation Await pathology results Follow up with PCP Indication Nausea, Irritable bowel syndrome with diarrhea, Constipation, unspecified constipation type Staff Staff Role No Staff Documented Medications See Anesthesia Record. Preprocedure A history and physical has been performed, and patient medication allergies have been reviewed. The patient's tolerance of previous anesthesia has been reviewed. The risks and benefits of the procedure and the sedation options and risks were discussed with the patient. All questions were answered and informed consent obtained. Details of the Procedure The patient underwent moderate sedation, which was administered by a sedation nurse and an anesthesia professional. The patient's blood pressure, ECG, ETCO2, heart rate, respirations, oxygen and level of consciousness were monitored throughout the procedure. A digital rectal exam was performed. The scope was introduced through the anus and advanced to the cecum. Retroflexion was not performed due to narrow vault. Bowel prep was adequate. The patient's estimated blood loss was minimal (<5 mL). The procedure was not difficult. The patient tolerated the procedure well. There were no apparent adverse events. Events Procedure Events Event Event Time ENDO SCOPE IN TIME 05/08/2024 9:04 AM ENDO CECUM REACHED 05/08/2024 9:13 AM ENDO SCOPE OUT TIME 05/08/2024 9:22 AM Specimens ID Type Source Tests Collected by Time 1 : COLON RANDOM BIOPSY'S Tissue COLON - RANDOM BIOPSY SURGICAL PATHOLOGY EXAM Chris Terrell RN 05/08/2024 0904 Procedure Location [address] [address] Referring Provider Brendan Carrillo MD Procedure Provider Brendan Carrillo MD [facility] Comment on above: Order Comment: D.O.S - 04/17/2024 Colonoscopy studyon 05-08-20 24 Table formatting fro m the original result was not included. Impression Mild erythematous, friable mucosa in the sigmoid colon and rectum Performed pancolonic forceps biopsies to rule out colitis and IBD Findings Mild, generalized erythematous and friable mucosa in the sigmoid colon and rectum; no bleeding was identified; Performed multiple random pancolonic forceps biopsies to rule out colitis and IBD Recommendation Await pathology results Follow up with PCP Indication Nausea, Irritable bowel syndrome with diarrhea, Constipation, unspecified constipation type Staff Staff Role No Staff Documented Medications See Anesthesia Record. Preprocedure A history and physical has been performed, and patient medication allergies have been reviewed. The patient's tolerance of previous anesthesia has been reviewed. The risks and benefits of the procedure and the sedation options and risks were discussed with the patient. All questions were answered and informed consent obtained. Details of the Procedure The patient underwent moderate sedation, which was administered by a sedation nurse and an anesthesia professional. The patient's blood pressure, ECG, ETCO2, heart rate, respirations, oxygen and level of consciousness were monitored throughout the procedure. A digital rectal exam was performed. The scope was introduced through the anus and advanced to the cecum. Retroflexion was not performed due to narrow vault. Bowel prep was adequate. The patient's estimated blood loss was minimal (<5 mL). The procedure was not difficult. The patient tolerated the procedure well. There were no apparent adverse events. Events Procedure Events Event Event Time ENDO SCOPE IN TIME 05/08/2024 9:04 AM ENDO CECUM REACHED 05/08/2024 9:13 AM ENDO SCOPE OUT TIME 05/08/2024 9:22 AM Specimens ID Type Source Tests Collected by Time 1 : COLON RANDOM BIOPSY'S Tissue COLON - RANDOM BIOPSY SURGICAL PATHOLOGY EXAM Chris Terrell RN 05/08/2024 09 Procedure Location [address] [address] Referring Provider Brendan Carrillo MD Procedure Provider Brendan Carrillo MD [facility] Work Phone: [facility] Work Phone: Radiology Study observation (narrative) [facility] Work Phone: Surgical pathology studyon 1 Surgical pathology study Pathology report.total SEE COMMENT Surgical Pathology Case: [id number] Authorizing Provider: Brednan Carrillo MD Collected: 05/08/2024 0904 Ordering Location: [facility] Received: 05/08/[address] [place] [address] Pathologist: Ean Brito MD PhD Specimen: COLON - RANDOM BIOPSY, COLON RANDOM BIOPSY Path report.final diagnosis SEE COMMENT A. Colon, Random, Biopsy: -- Colonic mucosa with focal acute colitis. See note. Note: The histological feature is not specific and raises the differential of infection versus medication-associated injury (?NSAID). No chronicity identified in this biopsy material. Negative for dysplasia, granulomata, and viral cytopathic effect. Laboratory comment By the signature on this report, the individual or group listed as making the Final Interpretation/Diagnosis certifies that they have reviewed this case. Path report.relevant Hx SEE COMMENT Diagnosis codes: Nausea [R11.0] Constipation, unspecified constipation type [K59.00] Irritable bowel syndrome with diarrhea [K58.0] Path report.gross observation SEE COMMENT A: Received in formalin, labeled with the patient's name and hospital number and colon random biopsy, are multiple fragments of reza, soft tissue aggregating to 1.5 x 0.5 x 0.3 cm. The specimen is submitted in toto in two cassettes. LMP Normal [facility] Amylaseon 03-19-2024 Amylase [Catalytic activity/Vol] 47 U/L Normal 29-103 [facility] Comment on above: Performed By: #### 1 798-8 #### MOY LANDAVERDE ([id number]) [facility] ([facility]) [address] [place] [address] 72896 CBC W Auto Differential pane l (Bld)on 03-19-2024 Basophils (Bld) [#/Vol] 0.02 x10*3/uL Normal 0.00-0.10 [facility] Comment on above: Performed By: #### 5 7021-8 #### MOY LANDAVERDE ([id number]) [facility] ([facility]) [address] [place] [address] 95741 Basophils/100 WBC (Bld) 0.3 % Normal 0.0-2.0 [facility] Comment on above: Performed By: #### 5 7021-8 #### MOY LANDAVERDE ([id number]) [facility] ([facility]) [address] [place] [address] 86449 Eosinophils (Bld) [#/Vol] 0.09 x10*3/uL Normal 0.00-0.70 [facility] Comment on above: Performed By: #### 5 7021-8 #### MOY LANDAVERDE ([id number]) [facility] ([facility]) [address] [place] [address] 67431 Eosinophils/100 WBC (Bld) 1.4 % Normal 0.0-6.0 [facility] Comment on above: Performed By: #### 5 7021-8 #### MOY LANDAVERDE ([id number]) [facility] ([facility]) [address] [place] [address] 07680 Erythrocyte distribution width (RBC) [Ratio] 12.2 % Normal 11.5-14.5 [facility] Comment on above: Performed By: #### 5 7021-8 #### MOY LANDAVERDE ([id number]) [facility] ([facility]) [address] [place] [address] 81259 Hematocrit (Bld) [Volume fraction] 38.7 % Normal 36.0-46.0 [facility] Comment on above: Performed By: #### 5 7021-8 #### MOY LANDAVERDE ([id number]) [facility] ([facility]) [address] [place] [address] 28533 Hemoglobin (Bld) [Mass/Vol] 12.8 g/dL Normal 12.0-16.0 [facility] Comment on above: Performed By: #### 5 7021-8 #### MOY LANDAVERDE ([id number]) [facility] ([facility]) [address] [place] [address] 98732 Immature granulocytes (Bld) [#/Vol] 0.01 x10*3/uL Normal 0.00-0.70 [facility] Comment on above: Performed By: #### 5 7021-8 #### MOY LANDAVERDE ([id number]) [facility] ([facility]) [address] [place] [address] 15802 Immature granulocytes/100 WBC (Bld) 0.2 % Normal 0.0-0.9 [facility] Comment on above: Result Comment: Jessica ture Granulocyte Count (IG) includes promyelocytes, myelocytes and metamyelocytes but does not include bands. Percent differential counts (%) should be interpreted in the context of the absolute cell counts (cells/UL). Performed By: #### 5 7021-8 #### MOY LANDAVERDE ([id number]) [facility] ([facility]) [address] [place] [address] Lymphocytes (Bld) [#/Vol] 1.21 x10*3/uL Normal 1.20-4.80 [facility] Comment on above: Performed By: #### 5 7021-8 #### MOY LANDAVERDE ([id number]) [facility] ([facility]) [address] [place] [address] Lymphocytes/100 WBC (Bld) 18.9 % Normal 13.0-44.0 [facility] Comment on above: Performed By: #### 5 7021-8 #### MOY LANDAVERDE ([id number]) [facility] ([facility]) [address] [place] [address] MCH (RBC) [Entitic mass] 31.8 pg Normal 26.0-34.0 [facility] Comment on above: Performed By: #### 5 7021-8 #### MOY LANDAVERDE ([id number]) [facility] ([facility]) [address] [place] [address] 67501 MCHC (RBC) [Mass/Vol] 33.1 g/dL Normal 32.0-36.0 [facility] Comment on above: Performed By: #### 5 7021-8 #### MOY LANDAVERDE ([id number]) [facility] ([facility]) [address] [place] [address] 84900 MCV (RBC) [Entitic vol] 96 fL Normal 80-100 [facility] Comment on above: Performed By: #### 5 7021-8 #### MOY LANDAVERDE ([id number]) [facility] ([facility]) [address] [place] [address] 51176 Monocytes (Bld) [#/Vol] 0.46 x10*3/uL Normal 0.10-1.00 [facility] Comment on above: Performed By: #### 5 7021-8 #### MOY LANDAVERDE ([id number]) [facility] ([facility]) [address] [place] [address] 28110 Monocytes/100 WBC (Bld) 7.2 % Normal 2.0-10.0 [facility] Comment on above: Performed By: #### 5 7021-8 #### MOY LANDAVERDE ([id number]) [facility] ([facility]) [address] [place] [address] 99203 Neutrophils (Bld) [#/Vol] 4.60 x10*3/uL Normal 1.20-7.70 [facility] Comment on above: Result Comment: Perc ent differential counts (%) should be interpreted in the context of the absolute cell counts (cells/uL). Performed By: #### 5 7021-8 #### MOY LANDAVERDE ([id number]) [facility] ([facility]) [address] [place] [address] 72078 Neutrophils/100 WBC (Bld) 72.0 % Normal 40.0-80.0 [facility] Comment on above: Performed By: #### 5 7021-8 #### MOY LANDAVERDE ([id number]) [facility] ([facility]) [address] [place] [address] 58551 Nucleated RBC/100 WBC (Bld) [Ratio] 0.0 /100 WBCs Normal 0.0-0.0 [facility] Comment on above: Performed By: #### 5 7021-8 #### MOY LANDAVERDE ([id number]) [facility] ([facility]) [address] [place] [address] 25348 Platelets (Bld) [#/Vol] 206 x10*3/uL Normal 150-450 [facility] Comment on above: Performed By: #### 5 7021-8 #### MOY LANDAVERDE ([id number]) [facility] ([facility]) [address] [place] [address] 37693 RBC (Bld) [#/Vol] 4.02 x10*6/uL Normal 4.00-5.20 [facility] Comment on above: Performed By: #### 5 7021-8 #### WINTER AKHIL ([id number]) [facility] ([facility]) [address] [place] [address] WBC (Bld) [#/Vol] 6.4 x10*3/uL Normal 4.4-11.3 [facility] Comment on above: Performed By: #### 5 7021-8 #### WINTER AKHIL ([id number]) [facility] ([facility]) [address] [place] [address] CT ABDOMEN PELVIS W IV CONTR Violeta 03-19-2024 CT ABDOMEN PELVIS W IV CONTRAST Interpreted By: Collette Avina, STUDY: CT ABDOMEN PELVIS W IV CONTRAST; 03/19/2024 12:22 pm INDICATION: 18 y/o F with Signs/Symptoms:abdommina l pain. COMPARISON: None. ACCESSION NUMBER(S): [id number] ORDERING CLINICIAN: BRENDAN CARRILLO TECHNIQUE: Helical CT was performed following the intravenous administration of ml IV (Optiray 350) with oral contrast material. Reformats were performed in the coronal and sagittal plane. FINDINGS: LIMITATIONS/LINES: None. GREAT VESSELS/RETROPERITONEUM: Unremarkable. LUNG BASES: Unremarkable. PERITONEUM: No free air or free fluid. BOWEL: Fairly pronounced constipation APPENDIX: Visualized on image 104 measuring 5 mm otherwise unremarkable. LIVER: Unremarkable. BILE DUCTS: Unremarkable. GALLBLADDER: Unremarkable. SPLEEN: Unremarkable. PANCREAS: Unremarkable. KIDNEYS/ADRENALS: Unremarkable. BLADDER/PELVIS: Unremarkable. BONES: Unremarkable. SOFT TISSUE/OTHER: IUD in the uterus. IMPRESSION: Constipation. No evidence of acute intra-abdominal pathology. Normal appendix. MACRO: None Signed by: Collette Avina 03/22/2024 8:27 AM Dictation workstation: [id number] [facility] Choriogonadotropin.beta subu niton 03-19-2024 HCG.beta subunit Qn m[IU]/mL Normal <5 [facility] Comment on above: Order Comment: Total HCG measurement is performed using the [place] Access Immunoassay which detects intact HCG and free beta HCG subunit. This test is not indicated for use as a tumor marker. HCG testing is performed using a different test methodology at [facility] than other [facility]. Direct result comparison should only be made within the same method. Performed By: #### 2 1198-7 #### MOY LANDAVERDE ([id number]) [facility] ([facility]) [address] [place] [address] Comprehensive metabolic 2000 panelon 03-19-2024 Albumin BCP dye [Mass/Vol] 4.1 g/dL Normal 3.4-5.0 [facility] Comment on above: Performed By: #### 2 4323-8 #### MOY LANDAVERDE ([id number]) [facility] ([facility]) [address] [place] [address] 71308 ALP [Catalytic activity/Vol] 42 U/L Normal 33-110 [facility] Comment on above: Performed By: #### 2 4323-8 #### MOY LANDAVERDE ([id number]) [facility] ([facility]) [address] [place] [address] 09707 ALT With P-5'-P [Catalytic activity/Vol] 14 U/L Normal 7-45 [facility] Comment on above: Result Comment: Diamante ents treated with Sulfasalazine may generate falsely decreased results for ALT. Performed By: #### 2 4323-8 #### MOY LANDAVERDE ([id number]) [facility] ([facility]) [address] [place] [address] 10272 Anion gap [Moles/Vol] 7 mmol/L Low 10-20 [facility] Comment on above: Performed By: #### 2 4323-8 #### MOY LANDAVERDE ([id number]) [facility] ([facility]) [address] [place] [address] 38331 AST With P-5'-P [Catalytic activity/Vol] 18 U/L Normal 9-39 [facility] Comment on above: Performed By: #### 2 4323-8 #### MOY LANDAVERDE ([id number]) [facility] ([facility]) [address] [place] [address] 17341 Bilirubin [Mass/Vol] 0.8 mg/dL Normal 0.0-1.2 [facility] Comment on above: Performed By: #### 2 4323-8 #### MOY LANDAVERDE ([id number]) [facility] ([facility]) [facility] [place] [address] Calcium [Mass/Vol] 8.9 mg/dL Normal 8.6-10.3 [facility] Comment on above: Performed By: #### 2 4323-8 #### MOY LANDAVERDE ([id number]) [facility] ([facility]) [address] [place] [address] 20778 Chloride [Moles/Vol] 102 mmol/L Normal 98-107 [facility] Comment on above: Performed By: #### 2 4323-8 #### MOY LANDAVERDE ([id number]) [facility] ([facility]) [address] [place] [address] 55488 CO2 [Moles/Vol] 29 mmol/L Normal 21-32 [facility] Comment on above: Performed By: #### 2 4323-8 #### MOY LANDAVERDE ([id number]) [facility] ([facility]) [address] [place] [address] 61611 Creatinine [Mass/Vol] 0.67 mg/dL Normal 0.50-1.05 [facility] Comment on above: Performed By: #### 2 4323-8 #### MOY LANDAVERDE ([id number]) [facility] ([facility]) [address] [place] [address] 82806 GFR/1.73 sq M.predicted MDRD (S/P/Bld) [Vol rate/Area] mL/min/{1.73_m2} Normal >60 [facility] Comment on above: Result Comment: Calc ulations of estimated GFR are performed using the 2020 CKD-EPI Study Refit equation without the race variable for the IDMS-Traceable creatinine methods. https://jasn.asnjournals.org/content//ASN.50056068 88 Performed By: #### 2 4323-8 #### MOY LANDAVERDE ([id number]) [facility] ([facility]) [address] [place] [address] 08556 Glucose [Mass/Vol] 80 mg/dL Normal 74-99 [facility] Comment on above: Performed By: #### 2 4323-8 #### MOY LANDAVERDE ([id number]) [facility] ([facility]) [address] [place] [address] 73191 Potassium [Moles/Vol] 4.2 mmol/L Normal 3.5-5.3 [facility] Comment on above: Performed By: #### 2 4323-8 #### MOY LANDAVERDE ([id number]) [facility] ([facility]) [address] [place] [address] 18000 Protein [Mass/Vol] 6.3 g/dL Low 6.4-8.2 [facility] Comment on above: Performed By: #### 2 4323-8 #### MOY LANDAVERDE ([id number]) [facility] ([facility]) [address] [place] [address] 94855 Sodium [Moles/Vol] 134 mmol/L Low 136-145 [facility] Comment on above: Performed By: #### 2 4323-8 #### MOY LANDAVERDE ([id number]) [facility] ([facility]) [address] [place] [address] 33260 Urea nitrogen [Mass/Vol] 8 mg/dL Normal 6-23 [facility] Comment on above: Performed By: #### 2 4323-8 #### MOY LANDAVERDE ([id number]) [facility] ([facility]) [address] [place] [address] 16800 Triacylglycerol lipaseon Lipase [Catalytic activity/Vol] 42 U/L Normal 9-82 [facility] Comment on above: Order Comment: Venip uncture immediately after or during the administration of Metamizole may lead to falsely low results. Testing should be performed immediately prior to Metamizole dosing. Performed By: #### 3 040-3 #### MOY LANDAVERDE ([id number]) [facility] ([facility]) [address] [place] [address] 47270 CBC AND DIFFERENTIALon 03-20 % AUTOMATED IMMATURE GRAN 0.3 % Normal 0.0 - 0.9 [facility] Comment on above: Result Comment: Jessica ture Granulocyte Count (IG) includes promyelocytes, myelocytes and metamyelocytes but does not include bands. Percent differential counts (%) should be interpreted in the context of the absolute cell counts (cells/L). Performed By: #### C BCDF #### [address] [address] Basophils (Bld) [#/Vol] 0.03 10*3/uL Normal 0.00 - 0.10 [facility] Comment on above: Performed By: #### C BCDF #### [address] [address] Basophils/100 WBC (Bld) 0.4 % Normal 0.0 - 2.0 [facility] Comment on above: Performed By: #### C BCDF #### [address] [address] Eosinophils (Bld) [#/Vol] 0.17 10*3/uL Normal 0.00 - 0.70 [facility] Comment on above: Performed By: #### C BCDF #### [address] [address] Eosinophils/100 WBC (Bld) 2.5 % Normal 0.0 - 6.0 [facility] Comment on above: Performed By: #### C BCDF #### [address] [address] Erythrocyte distribution width (RBC) [Ratio] 12.5 % Normal 11.5 - 14.5 [facility] Comment on above: Performed By: #### C BCDF #### [address] [address] Hematocrit (Bld) [Volume fraction] 40.1 % Normal 36.0 - 46.0 [facility] Comment on above: Performed By: #### C BCDF #### [address] [address] Hemoglobin (Bld) [Mass/Vol] 13.6 g/dL Normal 12.0 - 16.0 [facility] Comment on above: Performed By: #### C BCDF #### [address] [place] [address] Lymphocytes (Bld) [#/Vol] 2.44 10*3/uL Normal 1.20 - 4.80 [facility] Comment on above: Performed By: #### C BCDF #### [address] [address] Lymphocytes/100 WBC (Bld) 35.8 % Normal 13.0 - 44.0 [facility] Comment on above: Performed By: #### C BCDF #### [address] [address] MCHC (RBC) [Mass/Vol] 33.9 g/dL Normal 32.0 - 36.0 [facility] Comment on above: Performed By: #### C BCDF #### [address] [address] MCV (RBC) [Entitic vol] 96 fL Normal 80 - 100 [facility] Comment on above: Performed By: #### C BCDF #### [address] [address] Monocytes (Bld) [#/Vol] 0.54 10*3/uL Normal 0.10 - 1.00 [facility] Comment on above: Performed By: #### C BCDF #### [address] [address] Monocytes/100 WBC (Bld) 7.9 % Normal 2.0 - 10.0 [facility] Comment on above: Performed By: #### C BCDF #### [address] [address] Neutrophils (Bld) [#/Vol] 3.62 10*3/uL Normal 1.20 - 7.70 [facility] Comment on above: Result Comment: Perc ent differential counts (%) should be interpreted in the context of the absolute cell counts (cells/L). Performed By: #### C BCDF #### [address] [address] Neutrophils/100 WBC (Bld) 53.1 % Normal 40.0 - 80.0 [facility] Comment on above: Performed By: #### C BCDF #### [address] [address] Platelets (Bld) [#/Vol] 223 10*3/uL Normal 150 - 450 [facility] Comment on above: Performed By: #### C BCDF #### [address] [address] RBC 4.20 x10E12/L Normal 4.00 - 5.20 [facility] Comment on above: Performed By: #### C BCDF #### [address] [address] WBC (Bld) [#/Vol] 6.8 10*3/uL Normal 4.4 - 11.3 [facility] Comment on above: Performed By: #### C BCDF #### [place] [id number] COMPREHENSIVE PANELon 2022 Albumin [Mass/Vol] 4.2 g/dL Normal 3.4 - 5.0 [facility] Comment on above: Performed By: #### C MP #### [address] [address] ALP [Catalytic activity/Vol] 58 U/L Normal 33 - 110 [facility] Comment on above: Performed By: #### C MP #### [address] [address] ALT [Catalytic activity/Vol] 7 U/L Normal 7 - 45 [facility] Comment on above: Result Comment: Diamante ents treated with Sulfasalazine may generate falsely decreased results for ALT. Performed By: #### C MP #### [address] [address] Anion gap [Moles/Vol] 9 mmol/L Low 10 - 20 [facility] Comment on above: Performed By: #### C MP #### [address] [address] AST [Catalytic activity/Vol] 14 U/L Normal 9 - 39 [facility] Comment on above: Performed By: #### C MP #### [place] [id number] Bilirubin [Mass/Vol] 0.9 mg/dL Normal 0.0 - 1.2 [facility] Comment on above: Performed By: #### C MP #### [address] [address] Calcium [Mass/Vol] 9.1 mg/dL Normal 8.6 - 10.3 [facility] Comment on above: Performed By: #### C MP #### [address] [address] Chloride [Moles/Vol] 105 mmol/L Normal 98 - 107 [facility] Comment on above: Performed By: #### C MP #### [address] [address] Creatinine [Mass/Vol] 0.68 mg/dL Normal 0.50 - 1.05 [facility] Comment on above: Performed By: #### C MP #### [address] [address] eGFR FEMALE >90 Normal >90 [facility] Comment on above: Result Comment: CALC ULATIONS OF ESTIMATED GFR ARE PERFORMED USING THE 2020 CKD-EPI STUDY REFIT EQUATION WITHOUT THE RACE VARIABLE FOR THE IDMS-TRACEABLE CREATININE METHODS. https://jasn.asnjournals.org/content/early/ASN.25374957 88 Performed By: #### C MP #### [address] [address] Glucose [Mass/Vol] 83 mg/dL Normal 74 - 99 [facility] Comment on above: Performed By: #### C MP #### [address] [address] HCO3 (Bld) [Moles/Vol] 28 mmol/L Normal 21 - 32 [facility] Comment on above: Performed By: #### C MP #### [address] [address] Potassium [Moles/Vol] 4.2 mmol/L Normal 3.5 - 5.3 [facility] Comment on above: Performed By: #### C MP #### [place] [address] Protein [Mass/Vol] 6.4 g/dL Normal 6.4 - 8.2 [facility] Comment on above: Performed By: #### C MP #### [place] [address] Sodium [Moles/Vol] 138 mmol/L Normal 136 - 145 [facility] Comment on above: Performed By: #### C MP #### [place] [address] Urea nitrogen [Mass/Vol] 9 mg/dL Normal 6 - 23 [facility] Comment on above: Performed By: #### C MP #### [place] [address] Lab Specimen Source Normal [facility] Comment on above: Performed By: #### C MP #### [place] [address] Performed By: #### V TDOH #### [place] [address] Performed By: #### T HYDS #### [place] [address] Performed By: #### V TB12 #### [place] [address] Performed By: #### C BCDF #### [place] [address] Performed By: #### F OLA2 #### [place] [address] Performed By: #### L IPID #### [place] [address] FOLATE, SERUMon 03-20-2023 Folate [Mass/Vol] 9.2 ng/mL Normal >5.0 [facility] Comment on above: Result Comment: Low <3.4 Borderline 3.4-5.0 Normal >5.0 . Patients receiving more than 5 mg/day of biotin may have interference in test results. A sample should be taken no sooner than eight hours after previous dose. Contact the testing laboratory for additional information. Performed By: #### F OLA2 #### [address] [address] LIPID PANEL (CORONARY RISK 2 )on 03-20-2023 Cholesterol [Mass/Vol] 124 mg/dL Normal 0 - 199 [facility] Comment on above: Result Comment: . AGE DESIRABLE BORDERLINE HIGH HIGH 0-19 Y 0 - 169 170 - 199 >/= 200 20-24 Y 0 - 189 190 - 224 >/= 225 >24 Y 0 - 199 200 - 239 >/= 240 All ranges are based on fasting samples. Specific therapeutic targets will vary based on patient-specific cardiac risk. . Pediatric guidelines reference:Pediatrics 2011, 128(S5). Adult guidelines reference: NCEP ATPIII Guidelines, MARIA ESTHER 2001, 258:2646-97 . Venipuncture immediately after or during the administration of Metamizole may lead to falsely low results. Testing should be performed immediately prior to Metamizole dosing. Performed By: #### L IPID #### [address] [address] Cholesterol in HDL [Mass/Vol] 44.0 mg/dL Normal [facility] Comment on above: Result Comment: . AGE VERY LOW LOW NORMAL HIGH 0-19 Y < 35 < 40 40-45 ---- 20-24 Y ---- < 40 >45 ---- >24 Y ---- < 40 40-60 >60 . Performed By: #### L IPID #### [address] [address] Cholesterol in LDL [Mass/Vol] 71 mg/dL Normal 0 - 109 [facility] Comment on above: Result Comment: . NEAR BORD AGE DESIRABLE OPTIMAL HIGH HIGH VERY HIGH 0-19 Y 0 - 109 --- 110-129 >/= 130 ---- 20-24 Y 0 - 119 --- 120-159 >/= 160 ---- >24 Y 0 - 99 100-129 130-159 160-189 >/=190 . Performed By: #### L IPID #### [address] [address] Cholesterol in VLDL [Mass/Vol] 9 mg/dL Normal 0 - 40 [facility] Comment on above: Performed By: #### L IPID #### [address] [address] Cholesterol.total/C holesterol in HDL [Mass ratio] 2.8 {ratio} Normal [facility] Comment on above: Result Comment: REF VALUES DESIRABLE < 3.4 HIGH RISK > 5.0 Performed By: #### L IPID #### [address] [address] NON-HDL CHOLESTEROL 80 mg/dL Normal 0 - 119 [facility] Comment on above: Result Comment: AGE DESIRABLE BORDERLINE HIGH HIGH VERY HIGH 0-19 Y 0 - 119 120 - 144 >/= 145 >/= 160 20-24 Y 0 - 149 150 - 189 >/= 190 ---- >24 Y 30 MG/DL ABOVE LDL CHOLESTEROL GOAL . Performed By: #### L IPID #### [address] [address] Triglyceride [Mass/Vol] 45 mg/dL Normal 0 - 149 [facility] Comment on above: Result Comment: . AGE DESIRABLE BORDERLINE HIGH HIGH VERY HIGH 0 D-90 D 19 - 174 ---- ---- ---- 91 D- 9 Y 0 - 74 75 - 99 >/= 100 ---- 10-19 Y 0 - 89 90 - 129 >/= 130 ---- 20-24 Y 0 - 114 115 - 149 >/= 150 ---- >24 Y 0 - 149 150 - 199 200- 499 >/= 500 . Venipuncture immediately after or during the administration of Metamizole may lead to falsely low results. Testing should be performed immediately prior to Metamizole dosing. Performed By: #### L IPID #### [address] [address] TSH WITH REFLEX TO FREE T4 I F ABNORMALon 03-20-2023 TSH Qn 2.04 m[IU]/L Normal 0.44 - 3.98 [facility] Comment on above: Result Comment: TSH testing is performed using different testing methodology at [facility] than at other [facility]. Direct result comparisons should only be made within the same method. Performed By: #### T HYDS #### [address] [address] US GALLBLADDERon 03-20-2023 US GALLBLADDER Patient Name: NATHALIE LUNDBERG STUDY: US GALLBLADDER; 03/20/2023 7:28 am INDICATION: Epigastric pain. COMPARISON: 03/18/2021 ACCESSION NUMBER(S): [id number] ORDERING CLINICIAN: BRENDAN CARRILLO TECHNIQUE: Grayscale and color Doppler ultrasound evaluation of the right upper quadrant. FINDINGS: LIVER: Normal size. Normal echogenicity and contour. No focal abnormality. GALLBLADDER: No cholelithiasis. No wall thickening or pericholecystic fluid. No focal tenderness is reported during scanning directly over the gallbladder. BILIARY TREE: No intra- or extrahepatic biliary dilatation. The extrahepatic bile duct measures 4 mm. PANCREAS: The visualized head and neck are within normal limits. The body and tail are obscured by shadowing from bowel gas. RIGHT KIDNEY: Normal size, no hydronephrosis. PERITONEUM: No ascites. IMPRESSION: No acute right upper quadrant pathology. Electronically signed by: MATTHEW THOMPSON MD Normal [facility] VITAMIN B12on 03-20-2023 Cobalamin (Vitamin B12) [Mass/Vol] 329 pg/mL Normal 211 - 911 [facility] Comment on above: Performed By: #### V TB12 #### [address] [address] VITAMIN D, 25-HYDROXYon 02-28 VITAMIN D, 25-HYDROXY 18 ng/mL Abnormal [facility] Comment on above: Result Comment: . DEFICIENCY: < 20 NG/ML INSUFFICIENCY: 20-29 NG/ML SUFFICIENCY: 30-100 NG/ML THIS ASSAY ACCURATELY QUANTIFIES THE SUM OF VITAMIN D3, 25-HYDROXY AND VIT D2,25-HYDROXY. Performed By: #### V TDOH #### [address] [address] Provider Note - ED v3on 10-28 Provider Note - ED v3 Provider Note: Chart Review: ED NOTES ED NOTES: Patient presents for evaluation of nausea and fatigue. States she has a hx of GERD which causes nausea for her and she was unable to sleep last night and caused her to miss work. States she recently saw GI for these same issues. She does not take any acid reducing medications. Denies abdominal pains, vomiting, diarrhea, fever, body aches, URI symptoms or any other associated symptoms or complaints. No otc meds for symptoms. Denies any chance of as she has IUD and declines testing today. HISTORY OF PRESENTING ILLNESS NATHALIE is a 17 year old Female and was seen by me at 13-Nov-2022 16:18. Triage Information: Most recent Vital Sign Value Date PAST MEDICAL HISTORY ALLERGIES/INTOLERANCES: No Known Allergies HEALTH HISTORY: No documented data. 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 HENMT: Airway patent, ears with clear tympanic membranes bilaterally. Nasal mucosa clear. Mouth with normal mucosa. Throat has no vesicles, no oropharyngeal exudates and uvula is midline. Face with no lymph node enlargement. EYES: Clear bilaterally, pupils equal, round and reactive to light. CARDIOVASCULAR: Normal rate, regular rhythm. Heart sounds S1, S2. No murmurs, rubs or gallops. PMI non-displaced. RESPIRATORY: Breath sounds clear and equal bilaterally. GASTROINTESTINAL: Abdomen soft, non-distended, no rebound, no guarding. Bowel sounds normal in all 4 quadrants. GENITOURINARY: No discharge, no lesions per pt report. No CVA tenderness on exam. NEUROLOGICAL: Alert and oriented, no focal deficits, no motor or sensory deficits. SKIN: Skin normal color for race, warm, dry and intact. No evidence of trauma. PSYCHIATRIC: Alert and oriented to person, place, time/situation. normal mood and affect. No apparent risk to self or others. CRITICAL CARE VITAL SIGNS: T PRBP SpO2O2(LPM) %FiO2 Method 13-Nov-2022 16:07:[id number]/66 96 MDM MDM/ED COURSE: Discussed Findings with: patient Data Reviewed: vital signs Treatment Plan: Rx Zofran ODT. Encouraged low acid diet and f/u with PCP as scheduled on sunday. Patient's clinical presentation is otherwise unremarkable at this time. Patient is discharged with instructions to follow-up with primary care or seek emergency medical attention for worsening symptoms or any new concerns. DISPOSITION Diagnosis/Annotation: ED Dx Name:Nausea Code:R11.0 Disposition: discharged Type: home CONSULT CRITICAL CARE TIME Is this a critically ill patient: no Electronic Signatures: Robbie Olivera (DIRECTOR OF INSTITUTIONAL GIVING-VIDEO GAME TESTER) (Signed 13-Nov-2022 17:39) Authored: ED Notes, HPI, PMH, ROS, PE, Results/Vital Signs, MDM/ED Course, Clinical Impression, Attestation, Chart Review, Scores Last Updated: 13-Nov-2022 17:39 by Robbie Olivera (DIRECTOR OF INSTITUTIONAL GIVING-VIDEO GAME TESTER) [facility] Office Visit ([facility])on 04-11-2021 Follow-up visit Diagnoses/Problems Generalized anxiety disorder (300.02) (F41.1) Mild depression (311) (F32.0) Orders Generalized anxiety disorder Renew: Escitalopram Oxalate 10 MG Oral Tablet; Take 1 tablet daily Provider Impressions Anxiety and fxisqbtpwb-MVD-6 was 15 today and PHQ-9 was 4. We will increase Escitalopram 1 to 10 mg once daily for better symptom control. She was agreeable with this plan. She is to seek emergent care if she develops any SI or HI. She verbalized understanding of all education provided. Call our office for any new or worsening symptoms. She is to follow-up in 1 month. 1 Amended By: Sujata Gonzalez; Apr 11 2021 11:29 AM ESTChief Complaint pt here for medcheck , no concerns. History of Present Illness Nathalie is here for follow-up on anxiety and depression. She was seen approximately 1 month ago. At that time her ROCIO-7 was 18 and PHQ-9 was 9. We discussed counseling and different treatment options. Ultimately she decided to try medication management. We started Escitalopram 1 at a very low dose of 5 mg once daily. She reports that she has been taking it consistently over the last, reports good compliance good tolerance and fair symptom control. Overall she is feeling slightly. She is sleeping well. denies si or HI. She is still experiencing some abdominal pain and nausea but reports an overall improvement in symptoms. She is continuing to take the omeprazole daily also feels that the antidepressant is helping her abdominal pain as well. She has no new concerns today. 1 Amended By: Sujata Gonzalez; Apr 11 2021 11:28 AM ESTReview of Systems All systems reviewed and negative except noted in the HPI. Active Problems Acute right ankle pain (719.47,338.19) (M25.571) Deep dyspareunia in female (625.0) (N94.12) Generalized anxiety disorder (300.02) (F41.1) GERD (gastroesophageal reflux disease) (530.81) (K21.9) Headache (784.0) (R51.9) Nausea and vomiting (787.01) (R11.2) Pelvic pain in female (625.9) (R10.2) Poor circulation of extremity (785.9) (R09.89) Screening for STDs (sexually transmitted diseases) (V74.5) (Z11.3) Sore throat (462) (J02.9) Past Medical History History of IUD (intrauterine device) in place (V45.51) (Z97.5) 06/2019, KYLEENA History of Menstruation Onset age 13 years Surgical History History of Intrauterine device placement kyleena Family History Family history of hypertension (V17.49) (Z82.49) Family history of migraine headaches (V17.2) (Z82.0) Family history of diabetes mellitus (V18.0) (Z83.3) Family history of gastroesophageal reflux disease (V18.59) (Z83.79) Social History Never a smoker No illicit drug use No recent foreign travel Sexually active Student Allergies No Known Drug Allergies Recorded By: Deborah Perdomo; 12/03/2019 11:08:30 AM Current Meds Medication NameInstructionReason Escitalopram Oxalate 5 MG Oral TabletTAKE 1 TABLET DAILY.Generalized anxiety disorder Omeprazole 20 MG Oral Capsule Delayed ReleaseTAKE 1 CAPSULE DailyGERD (gastroesophageal reflux disease) Kyleena IUD Lactaid TABS Vitals Vital Signs Recorded: 11Apr2021 10:30AM Heart Rate72 Eitvforx615 Fbtiewigy12 Height5 ft 6.54 in 2-20 Stature Oxhyinovit01 % Ilrndy128 lb 15.86 oz 2-20 Weight Wethynobgf19 % BMI Rucjqgmwdd20.23 kg/m2 BMI Fapcjdmaux01 % BSA Calculated1.73 Tobacco Useb) No Physical Exam Constitutional - Well developed, well nourished, well hydrated and no acute distress. Head and Face - Normocephalic, atraumatic. Eyes - Conjunctiva and lids normal. Ears, Nose, Mouth, and Throat - No nasal discharge. External without deformities. TM's normal color, normal landmarks, no fluid, non-retracted. External auditory canals without swelling, redness or tenderness. Pharyngeal mucosa normal. No erythema, exudate, or lesions. Mucous membranes moist. Neck - Full range of motion. No significant cervical adenopathy. Pulmonary - No grunting, flaring or retractions. Clear to auscultation. Cardiovascular - Regular rate and rhythm. No significant murmur. Time Time Stamp_: Time spent directly with patient/family/caregiver : 18 minutes. Documentation time: 5 minutes. Total time on date of patient encounter: 23 minutes. 'Scores and Scales' Signatures Electronically signed by : YONY Gar; Apr 11 2021 11:29AM EST (Author) Normal [facility] Tobacco Screening.on 021 Tobacco use status CPHS b) No -[facility] Work Phone: No Panel Informationon 03-18 Normal [facility] Work Phone: Office Visit ([facility])on 03-10-2021 Follow-up visit Diagnoses/Problems Generalized anxiety disorder (300.02) (F41.1) GERD (gastroesophageal reflux disease) (530.81) (K21.9) Nausea and vomiting (787.01) (R11.2) Orders Generalized anxiety disorder Start: Escitalopram Oxalate 5 MG Oral Tablet; TAKE 1 TABLET DAILY Provider Impressions Anxiety- ROCIO-7 18 today Mild depression- PHQ-9 9 today. Start Lexapro 5 mg once daily. Medication directions and side effects discussed in detail. She verbalized understanding. Nausea and abdominal pain- labs did not indicate and clear cause. Since her symptoms are improving, we will continue omeprazole for 1 more month. She is to follow in 1 month. She should seek emergent care if she develops any SI/HI. Could social support system and she feels she can discuss feelings with her parents. She verbalized understanding of all education provided today and agreement with the above plan. Chief Complaint pt here for f/u GERD., medication is improving sx but feels that her anxiety is making sx worse. History of Present Illness NATHALIE LUNDBERG presents with complaints of gradual onset of moderate anxiety starting about 3 years ago. She is currently experiencing anxiety. Her symptoms are caused by no known event. Symptoms are improved by quiet, but not by isolation and medications. Symptoms are made worse by stress and new situations, but not by caffeine, illicit drug use, fatigue and lack of sleep. Symptoms are worsening. Pertinent Medical History: no thyroid disease, no mitral valve prolapse, no coronary artery disease, no alcohol abuse, no illicit drug abuse, no anxiety disorder, no panic disorder, no major depression, no bipolar disorder, no personality disorder, no social phobia, no PTSD, no schizophrenia, no irritable bowel disorder, no migraine headaches and no chronic fatigue syndrome. Family History: anxiety disorder and depression, but not panic disorder, schizophrenia, alcohol abuse and illicit drug abuse. Associated symptoms include difficulty concentrating, excessive worry, fatigue, insomnia, irritability, muscle tension, nervousness, panic attacks, sweaty palms, gastrointestinal complaints and headaches, but no sleep disruption, no chest pain, no choking sensation, no dizziness, no fainting, no flushing, no heart palpitations, no hyperventilation, no muscle pain, no muscle spasms, no paresthesia, no racing heart, no shortness of breath, no sighing respiration and no tremors. She feels she has had anxiety for years, but has never taken any medications. She is seeing a counselor at [facility] for 5 months now. She feels she has better coping skills, but still worries all the time. Denies SI/HI. Mother has depression and anxiety. She was seen February 11 for nausea and abdominal pain. Started omeprazole 3 weeks ago. Her stomach symptoms have improved, but she notices worsening GI symptoms when she is stress or worrying. She would like to discuss medication that will help with her symptoms. Review of Systems Constitutional: normal activity, no fever, normal appetite and normal sleeping Eyes: no discharge from the eyes, no redness, no pain and no change in vision ENT: no ear pain, no discharge from the ears, normal hearing, no nasal congestion, no rhinorrhea and no sore throat Cardiovascular: no chest pain and no palpitations Respiratory: no shortness of breath, no wheezing, no dyspnea with exertion and no cough Gastrointestinal: abdominal pain and nausea, but no vomiting, no constipation and no diarrhea improving symptoms. Genitourinary: no dysuria, no flank pain, no nocturnal enuresis, no diurnal enuresis, not sexually active and menses regular Musculoskeletal: no muscle pain, no joint swelling, no limping, no localized joint pain, no joint stiffness and moving all extremities well and symmetrical Integumentary: no rashes, no skin lesions, no skin wound and no changes in moles or birthmarks Neurological: no confusion, normal alertness and focusing, no syncope and no vertigo Psychiatric: feelings of depression, insomnia and feelings of anxiety, but no excessive sadness, no excessive crying, no excessive separation anxiety, no excessive lying, no school conduct problems, no excessive school absenteeism, no sudden decrease in grades, not bullying, not being bullied, no recent change in friends, no drug use, no alcohol use, no tobacco use, no suicidal thoughts, no personality change, no sleep disturbances and normal weight self-image Endocrine: no increase in thirst, no excessive sweating and no temperature intolerance Hematologic/Lymphatic: no swollen glands, no excessive bleeding and no excessive bruising ROS reported by the parent or guardian Active Problems Acute right ankle pain (719.47,338.19) (M25.571) Deep dyspareunia in female (625.0) (N94.12) GERD (gastroesophageal reflux disease) (530.81) (K21.9) Headache (784.0) (R51.9) Nausea and vomiting (787.01) (R11.2) Pelvic pain in female (625.9) (R10.2) Poor circulation of extremity (785.9) ( (more content not included)... Normal [facility] Tobacco Screening.on 021 Tobacco use status CPHS b) No -[facility] Work Phone: GC + Chlamydia By Amplified Detectionon 03-08-2021 C. trachomatis rRNA ANNEMARIE+probe Ql (Unsp spec) Negative Negative [facility] [place] [address] [employer] Work Phone: Comment on above: The APTIMA Combo 2 a ssay is FDA-approved for Chlamydia trachomatis and Neisseria gonorrhoeae testing on female endocervical and vaginal swabs, ThinPrep liquid pap samples, male urine samples and urethral swabs. Performance characteristics for Chlamydia trachomatis and Neisseria gonorrhoeae testing on specific yhm-PPI-whqqmncs sample types (female urine samples) have been validated by [facility]. This laboratory is certified by CLIA to perform high complexity testing. Samples from all other sites are not validated for this method. N. gonorrhoeae rRNA ANNEMARIE+probe Ql (Unsp spec) Negative Negative [place] [address] [employer] Work Phone: Comment on above: SOURCE: Urine The AP YANDY Combo 2 assay is FDA-approved for Chlamydia trachomatis and Neisseria gonorrhoeae testing on female endocervical and vaginal swabs, ThinPrep liquid pap samples, male urine samples and urethral swabs. Performance characteristics for Chlamydia trachomatis and Neisseria gonorrhoeae testing on specific mei-ZUY-hbwanpqf sample types (female urine samples) have been validated by [facility]. This laboratory is certified by CLIA to perform high complexity testing. Samples from all other sites are not validated for this method. LMPon 03-08-2021 Last menstrual period start date IUD [place] [address] [employer] Work Phone: [employer] WORK[employer] - Office Visiton 02-27 [employer] WORK[employer] - Office Visit Diagnoses/Problems Assessed Pelvic pain in female (625.9) (R10.2) Screening for STDs (sexually transmitted diseases) (V74.5) (Z11.3) Deep dyspareunia in female (625.0) (N94.12) Orders Ultrasound Pelvis Transabdominal With Transvaginal; Status:Hold For - Scheduling; Requested for:[id number]; Radiologist to Determine Optimal Study : Y What are the patient's signs and symptoms? : pelvic GC + Chlamydia By Amplified Detection; Status:In Progress - Specimen/Data Collected; Done: [id number] Provider Impressions 1) pelvic pain-unclear etiology. Potentially separate diagnosis from deep dyspareunia. Will get gonorrhea and chlamydia as you are not sexually active. We will get a transvaginal ultrasound evaluate for structural abnormalities. Kyleena strings seen clinically in place. We will see ultrasound. All questions answered. Further management to follow. The guardian gave verbal consent over the phone to treat patient Chief Complaint PT IS A NEW PT HERE TODAY FOR PELVIC PAIN. SHARP PAIN THAT COMES AND GOES. STATES IT COMES WHENEVER, NOT NECESSARILY AROUND WHEN SHE SHOULD HAVE A CYCLE. X'S FEW MONTHS. LMP: IUD History of Present Arnamvh01-xixo-nvc G0 presents my office for pelvic pain deep dyspareunia. Patient's pelvic pain started since spring of this year. Patient notes its intermittent. Patient notes once in a while every few days. Patient has lasted 30 minutes to an hour. Patient also notes there is no aggravating or factors. Patient has no trouble with bowel or bladder. Patient notes some pain with deep insertion. Patient had IUD placed 2 years ago and has been doing well. Patient in no pain or any symptoms was initially placed. Patient has no other acute concerns. Patient sexually active with one partner. Review of Systems Constitutional: No fevers, chills Eye:no vision changes Respiratory: no SOB Cardiovascular: no chest pain Breast: No lump/mass or discharge Gastrointestinal: No nausea, vomiting, diarrhea, constipation. + abdominal pain Genitourinary:no dysuria Gynecology: See HPI Endocrine: No heat or cold intolerance Musculoskeletal: No decreased ROM Skin:No rash Neurologic: No numbness tingling Psychiatric: Anxiety All other: all other systems reviewed and negative for complaint Active Problems Problems Acute right ankle pain (719.47,338.19) (M25.571) GERD (gastroesophageal reflux disease) (530.81) (K21.9) Headache (784.0) (R51.9) Nausea and vomiting (787.01) (R11.2) Poor circulation of extremity (785.9) (R09.89) Sore throat (462) (J02.9) Past Medical History Problems History of IUD (intrauterine device) in place (V45.51) (Z97.5) History of Menstruation Onset age 13 years Surgical History Problems History of Intrauterine device placement kyleena Family History Mother Family history of hypertension (V17.49) (Z82.49) Family history of migraine headaches (V17.2) (Z82.0) Father Family history of diabetes mellitus (V18.0) (Z83.3) Sister Family history of gastroesophageal reflux disease (V18.59) (Z83.79) Social History Problems Never a smoker No illicit drug use No recent foreign travel Sexually active Student Allergies Medication No Known Drug Allergies Recorded By: Deborah Perdomo; 12/03/2019 11:08:30 AM Current Meds Medication NameInstruction Kyleena IUD Lactaid TABS Omeprazole 20 MG Oral Capsule Delayed ReleaseTAKE 1 CAPSULE Daily Vitals Vital Signs Recorded: 08Mar2021 01:49PM Aebrxqpvbjw74.1 F Oocjreef933 Lzdcfahhy17 Height5 ft 6.54 in 2-20 Stature Uvlrsivrcn66 % Ndcpxh087 lb 13.92 oz 2-20 Weight Hzzplznfkx41 % BMI Fdncxqpprc73.37 kg/m2 BMI Kqbnlbhimo28 % BSA Calculated1.73 LMPIUD Physical Exam General: None acute distress Eye: Intraocular movements are intact HEENT: Normocephalic Cardiovascular: Regular rate rhythm Respiratory: Lungs are clear to auscultation, respirations are nonlabored Gastrointestinal: Soft nontender nondistended normal bowel sounds Gynecology: External genitalia within normal limits for age. Urethral meatus normal bladder nontender. Vagina without discharge. No vaginal bleeding . Kyleena strings 1 cm with nulliparous cervix. No lesions. No CMT. Uterus mobile midline nontender. No levator ani tenderness. No adnexal tenderness. No adnexal masses Musculoskeletal: Normal range of motion Skin: Warm and dry Neurologic: Alert and oriented x3 Psychiatric: Cooperative appropriate mood and affect. Signatures Electronically signed by : Chad Rahman DO; Mar 08 2021 2:14PM EST (Author) Normal [facility] C Reactive Protein, Serumon 02-11-2021 CRP [Mass/Vol] mg/L [facility] Work Phone: Comment on above: REF VALUE< 1.00 Hemoglobin A1Con 02-11-2021 HbA1c (Bld) [Mass fraction] 4.7 % [facility] Work Phone: Comment on above: Diagnosis of Diabete s-Adults Non-Diabetic: < or = 5.6% Increased risk for developing diabetes: 5.7-6.4% Diagnostic of diabetes: > or = 6.5%. Monitoring of Diabetes Age (y) Therapeutic Goal (%) Adults: >18 <7.0 Pediatrics: 13-18 <7.5 7-12 <8.0 0- 6 7.5-8.5 [employer]. Diabetes Care 33(S1), Jul 2009. Laboratory - Chemistry and C hemistry - challengeon 02-11-2021 Albumin BCP dye [Mass/Vol] 4.0 g/dL 3.4 - 5.0 [facility] Work Phone: ALP [Catalytic activity/Vol] 56 U/L 33 - 80 [facility] Work Phone: ALT With P-5'-P [Catalytic activity/Vol] 10 U/L 3 - 28 [facility] Work Phone: Comment on above: Patients treated wit h Sulfasalazine may generate falsely decreased results for ALT. Anion gap [Moles/Vol] 8 mmol/L below low threshold 10 - 30 [facility] Work Phone: AST With P-5'-P [Catalytic activity/Vol] 15 U/L 9 - 24 [facility] Work Phone: Bilirubin [Mass/Vol] 1.0 mg/dL above high threshold 0.0 - 0.9 [facility] Work Phone: Calcium [Mass/Vol] 8.7 mg/dL 8.5 - 10.7 [facility] Work Phone: Chloride [Moles/Vol] 108 mmol/L above high threshold 98 - 107 [facility] Work Phone: CO2 [Moles/Vol] 27 mmol/L 18 - 27 [facility] Work Phone: Creatinine [Mass/Vol] 0.60 mg/dL See Below [facility] Work Phone: Comment on above: Reference Range: 0.5 0 - 0.90 Glucose [Mass/Vol] 85 mg/dL 74 - 99 [facility] Work Phone: Potassium [Moles/Vol] 3.8 mmol/L 3.5 - 5.3 [facility] Work Phone: Protein [Mass/Vol] 6.2 g/dL 6.2 - 7.7 [facility] Work Phone: Sodium [Moles/Vol] 139 mmol/L 136 - 145 [facility] Work Phone: TSH Qn 1.75 m[IU]/L See Below [facility] Work Phone: Comment on above: Reference Range: 0.4 4 - 3.98 TSH testing is performed using different testing methodology at [facility] than at other [facility]. Direct result comparisons should only be made within the same method. Urea nitrogen [Mass/Vol] 7 mg/dL 6 - 23 [facility] Work Phone: Laboratory - Hematology and Cell countson 02-11-2021 Erythrocyte distribution width (RBC) [Ratio] 12.9 % See Below [facility] Work Phone: Comment on above: Reference Range: 11. 5 - 14.5 Hematocrit (Bld) [Volume fraction] 41.3 % See Below [facility] Work Phone: Comment on above: Reference Range: 36. 0 - 46.0 Hemoglobin (Bld) [Mass/Vol] 13.8 g/dL See Below [facility] Work Phone: Comment on above: Reference Range: 12. 0 - 16.0 MCHC (RBC) [Mass/Vol] 33.4 g/dL See Below [facility] Work Phone: Comment on above: Reference Range: 31. 0 - 37.0 MCV (RBC) [Entitic vol] 95 fL 78 - 102 [facility] Work Phone: Platelets (Bld) [#/Vol] 205 10*3/uL 150 - 400 [facility] Work Phone: RBC (Bld) [#/Vol] 4.34 {x10E12/L} See Below [facility] Work Phone: Comment on above: Reference Range: 4.1 0 - 5.20 WBC (Bld) [#/Vol] 5.7 10*3/uL 4.5 - 13.5 [facility] Work Phone: Laboratory - Serology - non- microon 02-11-2021 Gliadin peptide IgA IA Qn (S) <1 0 - 14 [facility] Work Phone: Comment on above: False negative Deami dated Gliadin Peptide Antibody, IgA results can occur in patients already adhering to a gluten-free diet or patients with IgA deficiency. Tissue Transglutaminase Antibody, IgA is the preferred test for screening patients with suspected Celiac Disease. tTG IgA IA Qn (S) <1 0 - 14 [facility] Work Phone: Comment on above: Celiac disease is un likely. False negative Tissue Transglutaminase Antibody, IgA results can occur in approximately 10% of patients with celiac disease, patients already adhering to a gluten-free diet, or patients with IgA deficiency. tTG IgG IA Qn (S) <1 0 - 14 [facility] Work Phone: Comment on above: False negative Tissu e Transglutaminase Antibody, IgG results can occur in patients already adhering to a gluten-free diet. Tissue Transglutaminase Antibody, IgA is the preferred test for screening patients with suspected Celiac Disease. No Panel Informationon 02-11 <1 0 - 14 [facility] Work Phone: Comment on above: False negative Deami dated Gliadin Peptide Antibody, IgG results can occur in patients already adhering to a gluten-free diet. Tissue Transglutaminase Antibody, IgA is the preferred test for screening patients with suspected Celiac Disease. Office Visit ([facility] Medicin e)on 02-11-2021 Follow-up visit Diagnoses/Problems Nausea and vomiting (787.01) (R11.2) GERD (gastroesophageal reflux disease) (530.81) (K21.9) Orders GERD (gastroesophageal reflux disease) Start: Omeprazole 20 MG Oral Capsule Delayed Release; TAKE 1 CAPSULE Daily Nausea and vomiting C Reactive Protein, Serum; Status:Active; Requested for:76Ygw7614; Calprotectin, Fecal; Status:Active; Requested for:85Gpt7848; CELIAC DISEASE SEROLOGY PANEL; Status:Active; Requested for:09Ncn2781; Complete Blood Count; Status:Active; Requested for:72Nlz1139; Comprehensive Metabolic Panel; Status:Active; Requested for:93Dvb3369; Hemoglobin A1C; Status:Active; Requested for:74Zdu7337; IO HCG, Urine Test; Status:Canceled; Ova and Parasite + Giardia/Crypto Ag; Status:Active; Requested for:84Gzd7131; Other : nausea and diarrhea Patient History : Other - See Below TSH WITH REFLEX TO FREE T4 IF ABNORMAL; Status:Active; Requested for:53Lbb9284; Urine Test; Status:Active; Requested for:59Vqw6802; Unlinked Stop: Famotidine 20 MG Oral Tablet Provider Impressions Abdominal pain with nausea and vomiting- will consider infectious cause, inflammatory bowel disease, or celiac disease. Labs today: urine HCG, CRP, calprotectin, fecal, Celiac disease serology, CBC, CMP, Hemoglobin A1C, Ova and parasite. Depending on labs results, will consider abdominal US. Stop famotidine and start omeprazole daily. Follow up 2 weeks, unless symptoms worsen. Discussed symptoms that would require ER visit. Medication directions and SE education completed. She verbalized understanding and agreement with the above plan. Chief Complaint pt c/o daily nausea, some diarrhea , no appetite. History of Present Illness NATHALIE LUNDBERG presents with complaints of nausea. Associated symptoms include queasiness, regurgitation, abdominal pain, anorexia, bloating, diarrhea, vertigo and symptoms, but no emesis, no constipation, no dehydration, no hematemesis, no melena, no jaundice, no fatigue, no fever, no weight loss, no chest pain, no headache, no stiff neck, no weakness and no neurologic symptoms. taking famotidine, but is not helping anymore. Epidsodes of diarrhea after every meal. She reports that she has had these symptoms for years but they have worsened over the last month. Possibly of . Reports that her mom and grandma have had similar symptoms their entire lives, but they just deal with it. Review of Systems Cardiovascular: no chest pain and no palpitations Respiratory: as noted in HPI, no shortness of breath and no wheezing Gastrointestinal: abdominal pain, diarrhea and nausea, but no vomiting, no constipation and no blood in stools Genitourinary: no dysuria and no flank pain Active Problems Acute right ankle pain (719.47,338.19) (M25.571) GERD (gastroesophageal reflux disease) (530.81) (K21.9) Headache (784.0) (R51.9) Poor circulation of extremity (785.9) (R09.89) Sore throat (462) (J02.9) Surgical History No history of surgery Family History Family history of hypertension (V17.49) (Z82.49) Family history of diabetes mellitus (V18.0) (Z83.3) Family history of gastroesophageal reflux disease (V18.59) (Z83.79) Social History Never a smoker No recent foreign travel Student Allergies No Known Drug Allergies Recorded By: Deborah Perdomo; 12/03/2019 11:08:30 AM Current Meds Medication NameInstructionReason Famotidine 20 MG Oral Tablet Lactaid TABS Vitals Vital Signs Recorded: 00Iym6119 09:14AM Heart Rate72 Nxnyyneb692 Sthsktcdy81 Height5 ft 6.54 in 2-20 Stature Luqwrmmmwz51 % Wkogxi913 lb 15.95 oz 2-20 Weight Oondhthyex84 % BMI Udwcpxmryc50.55 kg/m2 BMI Duzcupremg42 % BSA Calculated1.74 Tobacco Useb) No Physical Exam Constitutional - Well developed, well nourished, well hydrated and no acute distress. Head and Face - Normocephalic, atraumatic. Eyes - Conjunctiva and lids normal. Ears, Nose, Mouth, and Throat - No nasal discharge. External without deformities. TM's normal color, normal landmarks, no fluid, non-retracted. External auditory canals without swelling, redness or tenderness. Pharyngeal mucosa normal. No erythema, exudate, or lesions. Mucous membranes moist. Neck - Full range of motion. No significant cervical adenopathy. Pulmonary - No grunting, flaring or retractions. Clear to auscultation. Cardiovascular - Regular rate and rhythm. No significant murmur. Abdomen - Abdomen: Abnormal. The abdomen was flat. Bowel sounds were normal. There was mild tenderness in the right upper quadrant and in the left lower quadrant. The abdomen was not firm and not rigid. No rebound tenderness. No guarding. There was a negative Bedoya's sign, negative Rovsing's sign, negative obturator sign and negative psoas sign. no masses palpated. The abdomen was normal to percussion. Time Time Stamp_UH: Time spent directly with patient/family/caregiver : 25 minutes. Documentation time: 5 minutes. (more content not included)... Normal Touchworks Tobacco Screening.on 021 Tobacco use status [facility]PH[facility] b) No -[facility] Work Phone: Urine Teston 02-11 HCG ( test) Ql (U) Negative Negative [employer] Work Phone: Office Visit (Family Medicin e)on 07-27-2020 Follow-up visit Chief Complaint legs always cold, occasionally discolored and tingling x3 years. History of Present Illness Nathalie is a 15-year-old female here with her stepmother both of whom has provided history of presenting illness. They report that she has been having episodes of her llanes of bilateral lower extremity turning purple color. This happens intermittently and can last up few hours once it comes on. Denies having any pain associated with these episodes. Can happen both in summer and winter. Does not notice any specific triggers that brings just episodes on. Review of Systems ROS negative except discussed above in HPI. Active Problems Acute right ankle pain (719.47,338.19) (M25.571) GERD (gastroesophageal reflux disease) (530.81) (K21.9) Headache (784.0) (R51.9) Sore throat (462) (J02.9) Surgical History No history of surgery Family History Family history of hypertension (V17.49) (Z82.49) Family history of diabetes mellitus (V18.0) (Z83.3) Family history of gastroesophageal reflux disease (V18.59) (Z83.79) Social History Never a smoker No recent foreign travel Student Allergies No Known Drug Allergies Recorded By: Deborah Perdomo; 12/03/2019 11:08:30 AM Vitals Vital Signs Recorded: 37Ivz2571 09:06AM Heart Rate64 Jaekdapm04 Iwsancrnr55 Height5 ft 6.54 in 2-20 Stature Qurqnycfkf70 % Jwcwfh400 lb 4.8 oz 2-20 Weight Pbhlbzdnnx59 % BMI Ahpavbrbdq87.31 BMI Uclsgfznqx65 % BSA Calculated1.59 Physical Exam Constitutional - Well developed, well nourished, well hydrated and no acute distress. Pulmonary - No grunting, flaring or retractions. Clear to auscultation. Cardiovascular - Regular rate and rhythm. No significant murmur. Lower extremity examination with normal capillary refill and normal pulses present bilateral. purple discoloration is not noticeable on examination today. Diagnoses/Problems Poor circulation of extremity (785.9) (R09.89) Orders Poor circulation of extremity Complete Blood Count + Differential; Status:Active; Requested for:69Klw8943; Perform:Lab Services - Lab To Draw (Blood Test); Due:25Oct2020;Ordered; For:Poor circulation of extremity; Ordered By:Philipp Jiménez; Ultrasound Duplex Lower Extremity Bilat; Status:Canceled; Perform:[facility];Ordered; For:Poor circulation of extremity; Ordered By:Philipp Jiménez; Reason: Unspecified for Ultrasound Duplex Arterial Lower Extremity Bilat Radiologist to Determine Optimal Study : Y What are the patient's signs and symptoms? : lower extremity intermittent purple discoloration. Concerned about circulatory problems. [facility] LAB PVR W/O EXERCISE; Status:Hold For - Scheduling; Requested for:93Ngw7997; Perform:[facility] ([facility]); Due:25Oct2020;Ordered; For:Poor circulation of extremity; Ordered By:Philipp Jiménez; Provider Impressions Patient currently not taking medications and her symptoms are not limited to cold weather. No associated pain. Examination with low concerning for circulatory issues. however, given the nature of the symptoms, we will further evaluate with an US of lower extremities. other tests per orders. Patient to seek immediate medical attention if acute worsening of symptoms. s 'Scores and Scales' Signatures Electronically signed by : Philipp Jiménez MD MPH; Jul 27 2020 12:47PM EST (Author) Normal Touchworks No Panel Informationon 06-18 Ordered by an unspecified provider. [facility] X-RAYSon 12-03-2019 Ordered by an unspecified provider. [facility] XR Upper GI w/ Air Contrasto n 03-29-2018 XR Upper GI w/ Air Contrast Exam Date/Time: 03/29/2018 09:48 EDT Reason for Exam: EPIGASTIC PAIN;Abdominal pain Report STUDY: Double-contrast upper GI series with small-bowel follow-through dated 03/29/2018. INDICATION: Pain. COMPARISON: None. ACCESSION NUMBER(S): [id number] ORDERING CLINICIAN: Castillo Vick TECHNIQUE: Customer Trainer radiograph of the abdomen was obtained. Patient was then given effervescent granules to consume. The patient was then asked to drink liquid barium solution while the esophagus stomach and duodenal sweep were assessed under active fluoroscopy. FINDINGS: The visualized lungs are clear. There is a nonspecific nonobstructive bowel gas pattern. Contrast readily passes down the esophagus into the stomach. The esophageal mucosa is unremarkable. The gastric mucosa is unremarkable. The duodenal bulb was grossly unremarkable. The duodenal sweep has a normal anatomic lie. IMPRESSION: Unremarkable upper GI series. FINAL REPORT Dictated: 03/29/2018 10:14 am Hayden Camp MD Signed (Electronic Signature): 03/29/2018 10:14 am Signed by: Hayden Camp MD Technologist: ROBERT [facility] C Throaton 03-28-2018 C Throat Final Report: Light growth of Streptococcus pyogenes (Group A) in Normal throat ange isolated ORGANISM: Strep A [facility] Comment on above: Performed By: #### [id number] #### [facility] Microbiology Subsection [address] [place] [address] US Abdomen, Limitedon 2017 US Abdomen, Limited Exam Date/Time: 01/10/2018 08:36 EDT Reason for Exam: ABDOMINAL PAIN ATTN: LIVER/GB/PANCREAS;Abdomi nal pain Report STUDY: US Abdomen, Limited; 01/10/2018 8:36 am INDICATION: Abdominal pain. COMPARISON: None. ACCESSION NUMBER(S): [id number] ORDERING CLINICIAN: Castillo Vick TECHNIQUE: Grayscale and color Doppler ultrasound evaluation of the right upper quadrant. FINDINGS: LIVER: Normal size. Normal echogenicity and contour. No focal abnormality. GALLBLADDER: No cholelithiasis. No wall thickening or pericholecystic fluid. No focal tenderness is reported during scanning directly over the gallbladder. BILIARY TREE: No intra- or extrahepatic biliary dilatation. The extrahepatic bile duct measures 2 mm. PANCREAS: The visualized head and neck are within normal limits. The body and tail are obscured by shadowing from bowel gas. RIGHT KIDNEY: Normal size, no hydronephrosis. PERITONEUM: No ascites. IMPRESSION: Exam Date/Time: 01/10/2018 08:36 EDT Report No acute right upper quadrant pathology is demonstrated. FINAL REPORT Dictated: 01/10/2018 8:44 am Matthew Thompson MD Signed (Electronic Signature): 01/10/2018 8:44 am Signed by: Matthew Thompson MD Technologist: [facility] Vital Signs Date Time Vital Sign Value Performing Clinician Facility 03-02-2025 15:09040 Body height 165.1 cm Cori Hernandez APRN-VIDEO GAME TESTER Work Phone: [facility] 03-02-2025 15:09040 Body mass index (BMI) [Ratio] 20.97 kg/m2 Cori Hernandez APRN-VIDEO GAME TESTER Work Phone: [facility] 03-02-2025 15:09-040 Body temperature 98.01 [degF] Cori Hernandez APRN-VIDEO GAME TESTER Work Phone: [facility] 03-02-2025 15:09040 Body weight 57.15 kg Cori Hernandez APRN-VIDEO GAME TESTER Work Phone: [facility] 03-02-2025 15:09-040 Diastolic blood pressure 66 mm[Hg] Cori Hernandez APRN-VIDEO GAME TESTER Work Phone: [facility] 03-02-2025 15:09040 Heart rate 75 /min Cori Hernandez APRN-VIDEO GAME TESTER Work Phone: [facility] 03-02-2025 15:09-0400 SaO2% (BldA) [Mass fraction] 100 % Cori Hernandez APRN-VIDEO GAME TESTER Work Phone: [facility] 03-02-2025 15:09-040 Systolic blood pressure 100 mm[Hg] Cori Hernandez DIRECTOR OF INSTITUTIONAL GIVING-VIDEO GAME TESTER Work Phone: [facility] 02-25-2025 10:28040 Body height 165.1 cm Brendan Carrillo MD Work Phone: [facility] 02-25-2025 10:28-040 Body mass index (BMI) [Ratio] 20.97 kg/m2 Brendan Carrillo MD Work Phone: [facility] 02-25-2025 10:040 Body weight 57.15 kg Brendan Carrillo MD Work Phone: [facility] 02-25-2025 10:28040 Diastolic blood pressure 70 mm[Hg] Brendan Carrillo MD Work Phone: [facility] 02-25-2025 10:28-0400 Heart rate 72 /min Brendan Carrillo MD Work Phone: [facility] 02-25-2025 10:28040 Systolic blood pressure 119 mm[Hg] Brendan Carrillo MD Work Phone: [facility] 02-23-2025 11:12-0400 Body temperature 96.91 [degF] Alexandria Kendrickine PA-C Work Phone: [facility] 02-23-2025 11:12-0400 Diastolic blood pressure 57 mm[Hg] Alexandriaflako Kendrickine PA-C Work Phone: [facility] 02-23-2025 11:12-0400 Heart rate 80 /min Alexandriaflako Kendrickine PA-C Work Phone: [facility] 02-23-2025 11:12-0400 Respiratory rate 16 /min Alexandria Shaffer PA-C Work Phone: [facility] 02-23-2025 11:12-0400 SaO2% (BldA) [Mass fraction] 100 % Alexandria Shaffer PA-C Work Phone: [facility] 02-23-2025 11:12-0400 Systolic blood pressure 103 mm[Hg] Alexandria Shaffer PA-C Work Phone: [facility] 08-12-2024 16:29-0500 Body height 165.1 cm Brendan Carrillo MD Work Phone: [facility] 08-12-2024 16:29-0500 Body mass index (BMI) [Ratio] 22.96 kg/m2 Brendan Carrillo MD Work Phone: [facility] 08-12-2024 16:29-0500 Body weight 62.6 kg Brendan Carrillo MD Work Phone: [facility] 08-12-2024 16:29-0500 Diastolic blood pressure 66 mm[Hg] Brendan Carrillo MD Work Phone: [facility] 08-12-2024 16:29-0500 Heart rate 67 /min Brendan Carrillo MD Work Phone: [facility] 08-12-2024 16:29-0500 Systolic blood pressure 110 mm[Hg] Brendan Carrillo MD Work Phone: [facility] 08-06-2024 15:34-0500 Body temperature 98.6 [degF] Robbie Olivera DIRECTOR OF INSTITUTIONAL GIVING-VIDEO GAME TESTER Work Phone: [facility] 08-06-2024 15:34-0500 Diastolic blood pressure 67 mm[Hg] Robbie Olivera DIRECTOR OF INSTITUTIONAL GIVING-VIDEO GAME TESTER Work Phone: [facility] 08-06-2024 15:34-0500 Heart rate 88 /min Robbie Olivera DIRECTOR OF INSTITUTIONAL GIVING-VIDEO GAME TESTER Work Phone: [facility] 08-06-2024 15:34-0500 Respiratory rate 14 /min Robbie Olivera DIRECTOR OF INSTITUTIONAL GIVING-VIDEO GAME TESTER Work Phone: [facility] 08-06-2024 15:34-0500 SaO2% (BldA) [Mass fraction] 99 % Robbie Olivera DIRECTOR OF INSTITUTIONAL GIVING-VIDEO GAME TESTER Work Phone: [facility] 08-06-2024 15:34-0500 Systolic blood pressure 104 mm[Hg] Robbie Olivera DIRECTOR OF INSTITUTIONAL GIVING-VIDEO GAME TESTER Work Phone: [facility] 06-12-2024 15:16-0500 Body height 165.1 cm Brendan Carrillo MD Work Phone: [facility] 06-12-2024 15:16-0500 Body mass index (BMI) [Ratio] 22.13 kg/m2 Brendan Carrillo MD Work Phone: [facility] 06-12-2024 15:16-0500 Body weight 60.33 kg Brendan Carrillo MD Work Phone: [facility] 06-12-2024 15:16-0500 Diastolic blood pressure 65 mm[Hg] Brendan Carrillo MD Work Phone: [facility] 06-12-2024 15:16-0500 Heart rate 76 /min Brendan Carrillo MD Work Phone: [facility] 06-12-2024 15:16-0500 Systolic blood pressure 110 mm[Hg] Brendan Carrillo MD Work Phone: [facility] 06-09-2024 15:15-0500 Body height 165.1 cm Javan Iraheta MD Work Phone: [facility] 06-09-2024 15:15-0500 Body mass index (BMI) [Ratio] 22.47 kg/m2 Javan Iraheta MD Work Phone: [facility] 06-09-2024 15:15-0500 Body weight 61.24 kg Javan Iraheta MD Work Phone: [facility] 06-09-2024 15:15-0500 Diastolic blood pressure 73 mm[Hg] Javan Iraheta MD Work Phone: [facility] 06-09-2024 15:15-0500 Heart rate 89 /min Javan Iraheta MD Work Phone: [facility] 06-09-2024 15:15-0500 Systolic blood pressure 121 mm[Hg] Javan Iraheta MD Work Phone: [facility] 05-15-2024 15:48-0400 Body height 165.1 cm Brendan Carrillo MD Work Phone: [facility] 05-15-2024 15:48-0400 Body mass index (BMI) [Ratio] 22.3 kg/m2 Brendan Carrillo MD Work Phone: [facility] 05-15-2024 15:48-0400 Body weight 60.78 kg Brendan Carrillo MD Work Phone: [facility] 05-15-2024 15:48-0400 Diastolic blood pressure 77 mm[Hg] Brendan Carrillo MD Work Phone: [facility] 05-15-2024 15:48-0400 Heart rate 87 /min Brendan Carrillo MD Work Phone: [facility] 05-15-2024 15:48-0400 Systolic blood pressure 126 mm[Hg] Brendan Carrillo MD Work Phone: [facility] 05-08-2024 10:10-0400 Diastolic blood pressure 68 mm[Hg] Brendan Carrillo MD Work Phone: [facility] 05-08-2024 10:10-0400 Heart rate 63 /min Brendan Carrillo MD Work Phone: [facility] 05-08-2024 10:10-0400 Respiratory rate 16 /min Brendan Carrillo MD Work Phone: [facility] 05-08-2024 10:10-0400 SaO2% (BldA) [Mass fraction] 100 % Brendan Carrillo MD Work Phone: [facility] 05-08-2024 10:10-0400 Systolic blood pressure 103 mm[Hg] Brendan Carrillo MD Work Phone: 6(319)899-431251 [place] [address] 05-08-2024 09:25-0400 Body temperature 98.2 [degF] Brendan Carrillo MD Work Phone: 0(666)394-797557 [place] [address] 05-08-2024 08:39-0400 Body height 165.1 cm Brendan Carrillo MD Work Phone: 2(515)104-403961 [address] 05-08-2024 08:39-0400 Body mass index (BMI) [Ratio] 20.91 kg/m2 Brendan Carrillo MD Work Phone: 2(015)868-011157 [place] [address] 05-08-2024 08:39-0400 Body weight 57 kg Brendan Carrillo MD Work Phone: 7(504)237-074057 [place] [address] 03-25-2024 08:49-0400 Body height 165.1 cm Brendan Carrillo MD Work Phone: 7(649)533-696757 [place] [address] 03-25-2024 08:49-0400 Body mass index (BMI) [Ratio] 22.3 kg/m2 Brendan Carrillo MD Work Phone: 3(145)073-900857 [place] [address] 03-25-2024 08:49-0400 Body weight 60.78 kg Brendan Carrillo MD Work Phone: 8(693)496-464157 [place] [address] 03-25-2024 08:49-0400 Diastolic blood pressure 59 mm[Hg] Brendan Carrillo MD Work Phone: 5(757)804-973857 [place] [address] 03-25-2024 08:49-0400 Heart rate 70 /min Brendan Carrillo MD Work Phone: 9(181)382-723757 [place] [address] 03-25-2024 08:49-0400 Systolic blood pressure 97 mm[Hg] Brendan Carrillo MD Work Phone: [facility] 03-12-2024 11:33-0400 Body height 165.1 cm Brendan Carrillo MD Work Phone: [facility] 03-12-2024 11:33-0400 Body mass index (BMI) [Ratio] 23.13 kg/m2 Brendan Carrillo MD Work Phone: [facility] 03-12-2024 11:33-0400 Body weight 63.05 kg Brendan Carrlilo MD Work Phone: [facility] 03-12-2024 11:33-0400 Diastolic blood pressure 74 mm[Hg] Brendan Carrillo MD Work Phone: [facility] 03-12-2024 11:33-0400 Heart rate 64 /min Brendan Carrillo MD Work Phone: [facility] 03-12-2024 11:33-0400 Systolic blood pressure 112 mm[Hg] Brendan Carrillo MD Work Phone: [facility] 01-23-2024 14:02-0400 Body height 165.1 cm Ricky Pritchard MD Work Phone: [facility] 01-23-2024 14:02-0400 Body mass index (BMI) [Ratio] 23.63 kg/m2 Ricky Pritchard MD Work Phone: [facility] 01-23-2024 14:02-0400 Body temperature 97.81 [degF] Ricky Pritchard MD Work Phone: [facility] 01-23-2024 14:02-0400 Body weight 64.41 kg Ricky Pritchard MD Work Phone: [facility] 01-23-2024 14:02-0400 Diastolic blood pressure 65 mm[Hg] Ricky Pritchard MD Work Phone: [facility] 01-23-2024 14:02-0400 Heart rate 60 /min Ricky Pritchard MD Work Phone: [facility] 01-23-2024 14:02-0400 Respiratory rate 16 /min Ricky Pritchard MD Work Phone: [facility] 01-23-2024 14:02-0400 SaO2% (BldA) [Mass fraction] 98 % iRcky Pritchard MD Work Phone: [facility] 01-23-2024 14:02-0400 Systolic blood pressure 104 mm[Hg] Ricky Pritchard MD Work Phone: [facility] 07-09-2023 10:18-0500 Body height 165.1 cm Javan Iraheta MD Work Phone: [facility] 07-09-2023 10:18-0500 Body mass index (BMI) [Ratio] 23.23 kg/m2 Javan Iraheta MD Work Phone: [facility] 07-09-2023 10:18-0500 Body weight 63.32 kg Javan Iraheta MD Work Phone: [facility] 07-09-2023 10:18-0500 Diastolic blood pressure 62 mm[Hg] Javan Iraheta MD Work Phone: [facility] 07-09-2023 10:18-0500 Heart rate 87 /min Javan Iraheta MD Work Phone: [facility] 07-09-2023 10:18-0500 Systolic blood pressure 100 mm[Hg] Javan Iraheta MD Work Phone: [facility] 06-27-2023 15:08-0500 Body height 165.1 cm Robbie Olivera APRN-VIDEO GAME TESTER Work Phone: [facility] 06-27-2023 15:08-0500 Body mass index (BMI) [Ratio] 23.3 kg/m2 Robbie Olivera APRN-VIDEO GAME TESTER Work Phone: [facility] 06-27-2023 15:08-0500 Body temperature 98.6 [degF] Robbie Yanely DIRECTOR OF INSTITUTIONAL GIVING-VIDEO GAME TESTER Work Phone: [facility] 06-27-2023 15:08-0500 Body weight 63.5 kg Robbie Locosuziblanca DIRECTOR OF INSTITUTIONAL GIVING-VIDEO GAME TESTER Work Phone: [facility] 06-27-2023 15:08-0500 Diastolic blood pressure 69 mm[Hg] Robbie Yanely DIRECTOR OF INSTITUTIONAL GIVING-VIDEO GAME TESTER Work Phone: [facility] 06-27-2023 15:08-0500 Heart rate 80 /min Robbie Claudyeniblanca DIRECTOR OF INSTITUTIONAL GIVING-VIDEO GAME TESTER Work Phone: [facility] 06-27-2023 15:08-0500 Respiratory rate 16 /min Robbie Claudyeniblanca DIRECTOR OF INSTITUTIONAL GIVING-VIDEO GAME TESTER Work Phone: [facility] 06-27-2023 15:08-0500 SaO2% (BldA) [Mass fraction] 98 % Robbie Claudygarrett DIRECTOR OF INSTITUTIONAL GIVING-VIDEO GAME TESTER Work Phone: [facility] 06-27-2023 15:08-0500 Systolic blood pressure 104 mm[Hg] Robbie Olivera DIRECTOR OF INSTITUTIONAL GIVING-VIDEO GAME TESTER Work Phone: [facility] 05-10-2023 15:39-0400 Body height 167.6 cm Brendan Carrillo MD Work Phone: [facility] 05-10-2023 15:39-0400 Body mass index (BMI) [Ratio] 22.6 kg/m2 Brendan Carrillo MD Work Phone: [facility] 05-10-2023 15:39-0400 Body weight 63.5 kg Brendan Carrillo MD Work Phone: [facility] 05-10-2023 15:39-0400 Diastolic blood pressure 71 mm[Hg] Brendan Carrillo MD Work Phone: [facility] 05-10-2023 15:39-0400 Heart rate 76 /min Brendan Carrillo MD Work Phone: 2(174)337-447957 [place] [address] 05-10-2023 15:39-0400 Systolic blood pressure 120 mm[Hg] Brendan Carrillo MD Work Phone: 2(562)943-520551 [place] [address] 04-10-2023 16:14-0400 Body height 167.6 cm Brendan Carrillo MD Work Phone: 8(279)066-987551 [place] [address] 04-10-2023 16:14-0400 Body mass index (BMI) [Ratio] 23.73 kg/m2 Brendan Carrillo MD Work Phone: 7(769)181-748351 [place] [address] 04-10-2023 16:14-0400 Body weight 66.68 kg Brendan Carrillo MD Work Phone: 8(678)092-376551 [place] [address] 04-10-2023 16:14-0400 Diastolic blood pressure 68 mm[Hg] Brendan Carrillo MD Work Phone: 2(409)761-661651 [place] [address] 04-10-2023 16:14-0400 Heart rate 68 /min Brendan Carrillo MD Work Phone: 7(318)927-496151 [place] [address] 04-10-2023 16:14-0400 Systolic blood pressure 109 mm[Hg] Brendan Carrillo MD Work Phone: 4(570)359-808751 [place] [address] 03-19-2023 16:08-0400 Body height 167.6 cm Brendan Carrillo MD Work Phone: 6(001)804-444151 [place] [address] 03-19-2023 16:08-0400 Body mass index (BMI) [Ratio] 22.6 kg/m2 Brendan Carrillo MD Work Phone: 2(065)841-786151 [place] [address] 03-19-2023 16:08-0400 Body weight 63.5 kg Brendan Carrillo MD Work Phone: 2(380)408-815751 [place] [address] 03-19-2023 16:08-0400 Diastolic blood pressure 58 mm[Hg] Brendan Carrillo MD Work Phone: [facility] 03-19-2023 16:08-0400 Heart rate 79 /min Brendan Carrillo MD Work Phone: [facility] 03-19-2023 16:08-0400 Systolic blood pressure 100 mm[Hg] Brendan Carrillo MD Work Phone: [facility] 11-17-2022 11:06-0400 Body height 165.1 cm Ricky Pritchard MD Work Phone: [facility] 11-17-2022 11:06-0400 Body mass index (BMI) [Ratio] 23.46 kg/m2 Ricky Pritchard MD Work Phone: [facility] 11-17-2022 11:06-0400 Body temperature 98.91 [degF] Ricky Pritchard MD Work Phone: [facility] 11-17-2022 11:06-0400 Body weight 63.96 kg Ricky Pritchard MD Work Phone: [facility] 11-17-2022 11:06-0400 Diastolic blood pressure 71 mm[Hg] Ricky Pritchard MD Work Phone: [facility] 11-17-2022 11:06-0400 Heart rate 67 /min Ricky Pritchard MD Work Phone: [facility] 11-17-2022 11:06-0400 Respiratory rate 16 /min Ricky Pritchard MD Work Phone: [facility] 11-17-2022 11:06-0400 SaO2% (BldA) [Mass fraction] 99 % Ricky Pritchard MD Work Phone: [facility] 11-17-2022 11:06-0400 Systolic blood pressure 109 mm[Hg] Ricky Pritchard MD Work Phone: [facility] 11-13-2022 18:07-0400 Body height 165 cm Ricky Pritchard Other Phone: [facility] 11-13-2022 18:07-0400 Body temperature 97.7 [degF] Ricky Pritchard Other Phone: [facility] 11-13-2022 18:07-0400 Diastolic blood pressure 66 mm[Hg] Ricky Pritchard Other Phone: [facility] 11-13-2022 18:07-0400 Heart rate 94 /min Ricky Pritchard Other Phone: [facility] 11-13-2022 18:07-0400 Respiratory rate 16 /min Ricky Pritchard Other Phone: [facility] 11-13-2022 18:07-0400 SaO2% (BldA) [Mass fraction] 96 % Ricky Pritchard Other Phone: [facility] 11-13-2022 18:07-0400 Systolic blood pressure 106 mm[Hg] Ricky Pritchard Other Phone: [facility] 07-07-2022 09:41-0500 Body height 165.1 cm Javan Iraheta MD Work Phone: [facility] 07-07-2022 09:41-0500 Body mass index (BMI) [Ratio] 23.7 kg/m2 Javan Iraheta MD Work Phone: [facility] 07-07-2022 09:41-0500 Body weight 64.59 kg Javan Iraheta MD Work Phone: [facility] 07-07-2022 09:41-0500 Diastolic blood pressure 64 mm[Hg] Javan Iraheta MD Work Phone: [facility] 07-07-2022 09:41-0500 Heart rate 66 /min Javan Iraheta MD Work Phone: [facility] 07-07-2022 09:41-0500 Systolic blood pressure 105 mm[Hg] Javan Iraheta MD Work Phone: [facility] 04-27-2022 15:14-0400 Body height 165.1 cm Mallory Manzo VIDEO GAME TESTER Work Phone: [facility] 04-27-2022 15:14-0400 Body mass index (BMI) [Ratio] 22.71 kg/m2 Mallory Anais VIDEO GAME TESTER Work Phone: [facility] 04-27-2022 15:14-0400 Body weight 61.92 kg Mallory Anasi VIDEO GAME TESTER Work Phone: [facility] 04-27-2022 15:14-0400 Diastolic blood pressure 66 mm[Hg] Mallory Anais VIDEO GAME TESTER Work Phone: [facility] 04-27-2022 15:14-0400 Heart rate 87 /min Mallory Guillenman VIDEO GAME TESTER Work Phone: [facility] 04-27-2022 15:14-0400 SaO2% (BldA) [Mass fraction] 98 % Mallory Guillenman VIDEO GAME TESTER Work Phone: [facility] 04-27-2022 15:14-0400 Systolic blood pressure 106 mm[Hg] Mallory Guillenman VIDEO GAME TESTER Work Phone: [facility] 10-31-2021 08:49-0400 Body height 165.1 cm Deepa Sandoval VIDEO GAME TESTER Work Phone: [facility] 10-31-2021 08:49-0400 Body mass index (BMI) [Percentile] Per age and sex 65.6 % Deepa Spring VIDEO GAME TESTER Work Phone: [facility] 10-31-2021 08:49-0400 Body mass index (BMI) [Ratio] 22.85 kg/m2 Deepa Spring VIDEO GAME TESTER Work Phone: [facility] 10-31-2021 08:49-0400 Body temperature 98.1 [degF] Deepa Spring VIDEO GAME TESTER Work Phone: [facility] 10-31-2021 08:49-0400 Body weight 62.28 kg Deepa Sandoval VIDEO GAME TESTER Work Phone: [facility] 10-31-2021 08:49-0400 Diastolic blood pressure 67 mm[Hg] Deepa Lori VIDEO GAME TESTER Work Phone: [facility] 10-31-2021 08:49-0400 Heart rate 73 /min Deepa Lori VIDEO GAME TESTER Work Phone: [facility] 10-31-2021 08:49-0400 Respiratory rate 16 /min Deepa Sandoval VIDEO GAME TESTER Work Phone: [facility] 10-31-2021 08:49-0400 SaO2% (BldA) [Mass fraction] 98 % Deepa Sandoval VIDEO GAME TESTER Work Phone: [facility] 10-31-2021 08:49-0400 Systolic blood pressure 104 mm[Hg] Deepa Sandoval VIDEO GAME TESTER Work Phone: [facility] 08-04-2021 08:52-0500 Body height 165.1 cm Deepa Sandoval VIDEO GAME TESTER Work Phone: [facility] 08-04-2021 08:52-0500 Body mass index (BMI) [Percentile] Per age and sex 76.37 % Deepa Sandoval VIDEO GAME TESTER Work Phone: [facility] 08-04-2021 08:52-0500 Body mass index (BMI) [Ratio] 24.13 kg/m2 Deepa [employer]ware VIDEO GAME TESTER Work Phone: [facility] 08-04-2021 08:52-0500 Body temperature 98.01 [degF] Deepa Sandoval VIDEO GAME TESTER Work Phone: [facility] 08-04-2021 08:52-0500 Body weight 65.77 kg Deepa [employer] VIDEO GAME TESTER Work Phone: [facility] 08-04-2021 08:52-0500 Diastolic blood pressure 72 mm[Hg] Deepa Spring VIDEO GAME TESTER Work Phone: [facility] 08-04-2021 08:52-0500 Heart rate 75 /min Deepa [employer] VIDEO GAME TESTER Work Phone: [facility] 08-04-2021 08:52-0500 Respiratory rate 16 /min Deepa Sandoval VIDEO GAME TESTER Work Phone: [facility] 08-04-2021 08:52-0500 SaO2% (BldA) [Mass fraction] 97 % Deepa Sandoval VIDEO GAME TESTER Work Phone: [facility] 08-04-2021 08:52-0500 Systolic blood pressure 106 mm[Hg] Deepa Lori VIDEO GAME TESTER Work Phone: [facility] 05-23-2021 13:03-0400 Body height 165.1 cm Deepa Sandoval VIDEO GAME TESTER Work Phone: [facility] 05-23-2021 13:03-0400 Body mass index (BMI) [Percentile] Per age and sex 72.1 % Deepa [employer] Work Phone: [facility] 05-23-2021 13:03-0400 Body mass index (BMI) [Ratio] 23.46 kg/m2 Deepa [employer] Work Phone: [facility] 05-23-2021 13:03-0400 Body temperature 98.91 [degF] Deepa [employer] Work Phone: [facility] 05-23-2021 13:03-0400 Body weight 63.96 kg Deepa Sandoval [employer] Work Phone: [facility] 05-23-2021 13:03-0400 Diastolic blood pressure 65 mm[Hg] Deepa [employer] Work Phone: [facility] 05-23-2021 13:03-0400 Heart rate 89 /min Deepa [employer] Work Phone: [facility] 05-23-2021 13:03-0400 Respiratory rate 16 /min DeepaDheere Bolo Work Phone: [facility] 05-23-2021 13:03-0400 SaO2% (BldA) [Mass fraction] 97 % Deepa [employer] Work Phone: [facility] 05-23-2021 13:03-0400 Systolic blood pressure 99 mm[Hg] Deepa [employer] Work Phone: [facility] 04-11-2021 10:30-0400 Body height 169.01 cm Sujata Gonzalez Work Phone: [facility] Work Phone: 04-11-2021 10:30-0400 Body mass index (BMI) [Ratio] 22.23 kg/m2 Sujata Gonzalez Work Phone: [facility] Work Phone: 04-11-2021 10:30-0400 Body surface area Derived from formula 1.73 m2 Sujata Gonzalez Work Phone: [facility] Work Phone: 04-11-2021 10:30-0400 Body weight 63.5 kg Sujata Gonzalez Work Phone: [facility] Work Phone: 04-11-2021 10:30-0400 Diastolic blood pressure 60 mm[Hg] Sujata Gonzalez Work Phone: [facility] Work Phone: 04-11-2021 10:30-0400 Heart rate 72 /min Sujata Gonzalez Work Phone: [facility] Work Phone: 04-11-2021 10:30-0400 Systolic blood pressure 100 mm[Hg] Sujata Gonzalez Work Phone: [facility] Work Phone: 04-11-2021 10:30-0400 81 1 Sujata Gonzalez Work Phone: [facility] Work Phone: Comment on above: 2-20_SPerc 04-11-2021 10:30-0400 75 1 Sujata Gonzalez Work Phone: [facility] Work Phone: Comment on above: 2-20_WPerc 04-11-2021 10:30-0400 61 1 Sujata Gonzalez Work Phone: -[facility] Work Phone: Comment on above: BMIPerc 03-10-2021 08:16-0400 Body height 169.01 cm Sujata Gonzalez Work Phone: -[facility] Work Phone: 03-10-2021 08:16-0400 Body mass index (BMI) [Ratio] 22.55 kg/m2 Sujata Gonzalez Work Phone: -[facility] Work Phone: 03-10-2021 08:16-0400 Body surface area Derived from formula 1.74 m2 Sujata Gonzalez Work Phone: [facility] Work Phone: 03-10-2021 08:16-0400 Body weight 64.41 kg Sujata Gonzalez Work Phone: [facility] Work Phone: 03-10-2021 08:16-0400 Diastolic blood pressure 60 mm[Hg] Sujata Gonzalez Work Phone: [facility] Work Phone: 03-10-2021 08:16-0400 Heart rate 72 /min Sujata Gonzalez Work Phone: [facility] Work Phone: 03-10-2021 08:16-0400 Systolic blood pressure 100 mm[Hg] Sujata Gonzalez Work Phone: [facility] Work Phone: 03-10-2021 08:16-0400 82 1 Sujata Gonzalez Work Phone: -[facility] Work Phone: Comment on above: 2-20_SPe 03-10-2021 08:16-0400 77 1 Sujata M Carlos Work Phone: [facility] Work Phone: Comment on above: 2-20_WPerc 03-10-2021 08:16-0400 64 1 Sujata Gonzalez Work Phone: [facility] Work Phone: Comment on above: BMIPerc 03-08-2021 13:49-0400 Body height 169.01 cm Castillo L Nava Work Phone: [address] Work Phone: 03-08-2021 13:49-0400 Body mass index (BMI) [Ratio] 22.37 kg/m2 Castillo L Nava Work Phone: [address] Work Phone: 03-08-2021 13:49-0400 Body surface area Derived from formula 1.73 m2 Castillo L Nava Work Phone: [address] Work Phone: 03-08-2021 13:49-0400 Body temperature 97.1 [degF] Castillo L Nava Work Phone: [address] Work Phone: 03-08-2021 13:49-0400 Body weight 63.9 kg Castillo L Nava Work Phone: [address] Work Phone: 03-08-2021 13:49-0400 Diastolic blood pressure 62 mm[Hg] Castillo L Nava Work Phone: [address] Work Phone: 03-08-2021 13:49-0400 Systolic blood pressure 100 mm[Hg] Castillo L Nava Work Phone: [address] Work Phone: 03-08-2021 13:49-0400 82 1 Castillo L Nava Work Phone: [place] [address] [place] Work Phone: Comment on above: 2-20_SPerc 03-08-2021 13:49-0400 76 1 Castillo L Nava Work Phone: [place] [address] [place] Work Phone: Comment on above: 2-20_WPerc 03-08-2021 13:49-0400 62 1 Castillo L Nava Work Phone: [place] [address] [place] Work Phone: Comment on above: BMIPer 02-11-2021 09:14-0400 Body height 169.01 cm Castillo L Nava Work Phone: [facility] Work Phone: 02-11-2021 09:14-0400 Body mass index (BMI) [Ratio] 22.55 kg/m2 Castillo L Nava Work Phone: [facility] Work Phone: 02-11-2021 09:14-0400 Body surface area Derived from formula 1.74 m2 Castillo L Nava Work Phone: [facility] Work Phone: 02-11-2021 09:14-0400 Body weight 64.41 kg Castillo L Nava Work Phone: [facility] Work Phone: 02-11-2021 09:14-0400 Diastolic blood pressure 60 mm[Hg] Castillo L Nava Work Phone: [facility] Work Phone: 02-11-2021 09:14-0400 Heart rate 72 /min Castillo L Nava Work Phone: [facility] Work Phone: 02-11-2021 09:14-0400 Systolic blood pressure 104 mm[Hg] Castillo L Nava Work Phone: [facility] Work Phone: 02-11-2021 [id number] 82 1 Castillo Vick Work Phone: [facility] Work Phone: Comment on above: 2-20_SPerc 02-11-2021 09:140400 77 1 Castillo Vick Work Phone: [facility] Work Phone: Comment on above: 2-20_WPerc 02-11-2021 09:14 64 1 Castillo Vick Work Phone: [facility] Work Phone: Comment on above: BMIPerc Encounters Encounter Date Encounter Type Care Provider Facility Start: 03-02-2025 End: 03-02-2025 Office outpatient visit 15 minutes Cori BHAKTA Work Phone: [facility] Comment on above: Acute bacterial sinu sitis (Primary Dx) Start: 03-02-2025 End: 03-02-2025 ambulatory [facility] Start: 02-25-2025 End: 02-25-2025 Office outpatient visit 25 minutes Brendan Carrillo MD Work Phone: [facility] Comment on above: Allergic rhinitis, u nspecified seasonality, unspecified trigger (Primary Dx); Mucopurulent conjunctivitis of both eyes Start: 02-25-2025 End: 02-25-2025 ambulatory [facility] Start: 02-23-2025 End: 02-23-2025 Office outpatient visit 10 minutes Alexandria Shaffer PA-C Work Phone: [facility] Comment on above: Mucopurulent conjunc tivitis of both eyes (Primary Dx) Start: 02-23-2025 End: 02-23-2025 ambulatory [facility] Start: 01-28-2025 ambulatory Candi Yoo Facility :[facility] Start: 12-21-2024 End: 12-21-2024 Emergency department patient visit COLLETTE SAMUEL Facility:[facility] Start: 10-23-2024 ambulatory Joan Iraheta Facili ty:[facility] Start: 09-25-2024 ambulatory Joan Iraheta Facili ty:[facility] Start: 08-22-2024 End: 08-22-2024 ambulatory Joan Iraheta Facility:[facility] Start: 08-20-2024 End: 08-20-2024 ambulatory Joan Iraheta Facility:[facility] Start: 08-14-2024 End: 08-14-2024 ambulatory Joan Esequiel Facility:[facility] Start: 08-12-2024 End: 08-12-2024 Office outpatient visit 25 minutes Brendan Carrillo MD Work Phone: [facility] Comment on above: Hives (Primary Dx); Colitis; Irritable bowel syndrome with diarrhea Start: 08-12-2024 End: 08-12-2024 ambulatory [facility] Start: 08-06-2024 End: 08-06-2024 Patient encounter procedure Robbie Olivera DIRECTOR OF INSTITUTIONAL GIVING-VIDEO GAME TESTER Work Phone: [facility] Comment on above: Acute non-recurrent maxillary sinusitis (Primary Dx) Start: 08-06-2024 End: 08-06-2024 ambulatory [facility] Start: 06-12-2024 End: 06-12-2024 ambulatory [facility] Start: 06-12-2024 End: 06-12-2024 Office outpatient visit 25 minutes Brendan Carrillo MD Work Phone: [facility] Comment on above: Colitis (Primary Dx) ; Irritable bowel syndrome with diarrhea Start: 06-11-2024 ambulatory RICKY JONATHAN [facility] Start: 06-09-2024 End: 06-09-2024 Patient encounter procedure Javan Iraheta MD Work Phone: [facility] Comment on above: Encounter for contra ceptive management, unspecified type (Primary Dx); Vaginal discharge Start: 06-09-2024 End: 06-13-2024 ambulatory RICKY BOB [facility] Start: 05-15-2024 End: 05-15-2024 Office outpatient visit 25 minutes Brendan Carrillo MD Work Phone: [facility] Comment on above: Irritable bowel synd patti with diarrhea (Primary Dx); Colitis; Mild depression; Gastroesophageal reflux disease, unspecified whether esophagitis present Start: 05-15-2024 End: 05-15-2024 ambulatory [facility] Start: 05-08-2024 End: 05-08-2024 Subsequent hospital visit by physician Brendan Carrillo MD Work Phone: [facility] Comment on above: Nausea; Constipation, unspecified constipation type; Irritable bowel syndrome with diarrhea Start: 05-08-2024 End: 05-08-2024 ambulatory [facility] Start: 03-25-2024 End: 03-25-2024 Office outpatient visit 25 minutes Brendan Carrillo MD Work Phone: [facility] Comment on above: Nausea (Primary Dx); Constipation, unspecified constipation type; Irritable bowel syndrome with diarrhea Start: 03-25-2024 End: 03-25-2024 ambulatory [facility] Start: 03-19-2024 End: 03-19-2024 ambulatory [facility] Start: 03-19-2024 End: 03-19-2024 Subsequent hospital visit by physician [facility] Comment on above: Colitis Start: 03-19-2024 End: 03-19-2024 ambulatory [facility] Start: 03-12-2024 End: 03-12-2024 ambulatory [facility] Start: 03-12-2024 End: 03-12-2024 Office outpatient visit 25 minutes Brendan Carrillo MD Work Phone: [facility] Comment on above: Irritable bowel synd patti with diarrhea (Primary Dx); Colitis Start: 03-05-2024 End: 03-05-2024 ambulatory [facility] Start: 02-05-2024 ambulatory Grazyna VENEGAS Facility :[facility] Start: 02-05-2024 End: 02-05-2024 Patient encounter procedure Grazyna VENEGAS [facility] [place] Start: 01-23-2024 End: 01-23-2024 Patient encounter status Ricky Pritchard MD Work Phone: [facility] Work Phone: Start: 01-23-2024 End: 01-23-2024 Periodic preventive med est patient 18-39 yrs Ricky Pritchard MD Work Phone: [facility] Comment on above: General medical exam (Primary Dx); Gastroesophageal reflux disease without esophagitis; Generalized anxiety disorder Start: 01-23-2024 End: 01-23-2024 ambulatory [facility] JONATHAN [facility] Start: 01-23-2024 End: 01-23-2024 Encounter for general adult medical examination without abnormal findings RICKY JONATHAN [facility] Start: 09-10-2023 End: 09-10-2023 Emergency department patient visit RICKY PRITCHARD [facility] Start: 08-02-2023 ambulatory Grazyna VENEGAS Facility :[facility] Start: 07-24-2023 End: 07-24-2023 Emergency department patient visit ALEXX RESENDIZ [facility] Start: 07-09-2023 End: 07-09-2023 Initial preventive medicine new pt age 18-39yrs Javan Iraheta MD Work Phone: [facility] Comment on above: Well woman exam (Bettina chantale Dx) Start: 07-09-2023 End: 07-09-2023 Patient encounter procedure Javan Iraheta MD Work Phone: [facility] Work Phone: Start: 07-09-2023 End: 07-09-2023 ambulatory JAVAN IRAHETA [facility] Start: 07-03-2023 ambulatory Grazyna VENEGAS Facility:[facility] Start: 06-27-2023 End: 06-27-2023 Patient encounter procedure Robbie Slaughter Yanely DIRECTOR OF INSTITUTIONAL GIVING-VIDEO GAME TESTER Work Phone: [facility] Comment on above: Acute upper respirat ory infection (Primary Dx); Non-recurrent acute serous otitis media of right ear Start: 05-10-2023 End: 05-10-2023 Office outpatient visit 25 minutes Brendan Carrillo MD Work Phone: [facility] Comment on above: Postprandial epigast rome pain (Primary Dx); Irritable bowel syndrome with diarrhea Start: 04-10-2023 End: 04-10-2023 Office outpatient visit 25 minutes Brendan Carrillo MD Work Phone: [facility] Comment on above: Postprandial epigast rome pain (Primary Dx); Vitamin D deficiency Start: 03-20-2023 ambulatory MD BRENDAN CARRILLO Facility:[id number] Start: 03-19-2023 End: 03-19-2023 Office outpatient new 45 minutes Brendan Carrillo MD Work Phone: [facility] Comment on above: Gastroesophageal ref lux disease, unspecified whether esophagitis present (Primary Dx); Irritable bowel syndrome with diarrhea; Lipid screening; Fatigue, unspecified type; Epigastric pain Start: 11-17-2022 End: 11-17-2022 Patient encounter status Ricky Pritchard MD Work Phone: [facility] Work Phone: Start: 11-17-2022 End: 11-17-2022 Periodic preventive med est patient 12-17yrs Ricky Pritchard MD Work Phone: [facility] Comment on above: General medical exam (Primary Dx); Generalized anxiety disorder Start: 11-13-2022 End: 11-13-2022 Emergency department patient visit Robbie Olivera [facility] Start: 10-24-2022 Refill Ricky Pritchard MD Work Phone: [facility] Comment on above: Generalized anxiety disorder Start: 07-07-2022 End: 07-07-2022 Initial preventive medicine new pt age 18-39yrs Javan Iraheta MD Work Phone: [facility] Comment on above: Annual physical exam (Primary Dx); Vaginal discharge Start: 07-07-2022 End: 07-07-2022 Patient encounter procedure Javan Iraheta MD Work Phone: [facility] Start: 05-26-2022 End: 05-26-2022 ambulatory [facility] Start: 04-27-2022 End: 04-27-2022 Office outpatient new 30 minutes Ricky Pritchard MD Work Phone: [facility] Comment on above: Gastroesophageal ref lux disease, unspecified whether esophagitis present (Primary Dx); Irritable bowel syndrome with diarrhea Start: 02-08-2022 Patient encounter procedure No PCP None [address] Work Phone: Start: 12-07-2021 Refill Sujata Acevedo RN [facility] Comment on above: Irritable bowel synd patti with diarrhea Start: 11-22-2021 Refill Deepa Sandoval VIDEO GAME TE[employer] Work Phone: [facility] [facility] Comment on above: Irritable bowel synd patti with diarrhea Start: 10-31-2021 End: 10-31-2021 Office outpatient visit 25 minutes Deepa Sandoval VIDEO GAME TESTER Work Phone: [facility] Comment on above: Anxiety (Primary Dx) ; Generalized anxiety disorder; Irritable bowel syndrome with diarrhea; Gastroesophageal reflux disease, unspecified whether esophagitis present Start: 08-04-2021 End: 08-04-2021 Office outpatient visit 15 minutes Deepa Sandoval VIDEO GAME TESTER Work Phone: [facility] Comment on above: Anxiety (Primary Dx) ; Need for vaccination; Gastroesophageal reflux disease, unspecified whether esophagitis present Start: 05-23-2021 End: 05-23-2021 Office outpatient new 30 minutes Deepa Sandoval VIDEO GAME TESTER Work Phone: [facility] Comment on above: Anxiety (Primary Dx) ; Gastroesophageal reflux disease, unspecified whether esophagitis present; Need for influenza vaccination Start: 04-11-2021 Office outpatient vi sit 15 minutes Sujata Gonzalez Work Phone: [facility] Work Phone: Start: 04-07-2021 Rx Change Sujata slaughter Work Phone: [facility] Work Phone: Start: 04-07-2021 Rx Renewal Sujata slaughter Work Phone: [facility] Work Phone: Start: 03-10-2021 EPV, Provider: Sujata Gonzalez, Status: Pen, Time: 8:00 AM Castillo Vick Work Phone: [facility] [employer] Work Phone: Start: 03-10-2021 Office outpatient vi sit 15 minutes Sujata Gonzalez Work Phone: [facility] Work Phone: Start: 03-08-2021 Office outpatient ne w 30 minutes Castillo Vick Work Phone: [facility] [address] Work Phone: Start: 02-14-2021 Chart Update Castillo Jackson r Work Phone: [facility] Work Phone: Start: 02-11-2021 Chart Update Castillo slaughter Work Phone: [facility] Work Phone: Start: 02-11-2021 Office outpatient vi sit 25 minutes Castillo Vick Work Phone: [facility] Work Phone: Start: 03-29-2018 Patient encounter Facil [id number] Start: 03-26-2018 Patient encounter Facil [id number] Start: 01-18-2018 Patient encounter Facil [id number] Start: 01-10-2018 Patient encounter Facil [id number] Procedures Date Procedure Procedure Detail Performing Clinician Start: 06-09-2024 Iadna mely specie s direct probe tq Javan Iraheta MD Work Phone: Start: 05-08-2024 Colonoscopy w/biopsy single/multiple Brendan Carrillo MD Work Phone: Start: 03-20-2023 Lipid 1996 panel - S pardeep or Plasma Brendan Carrillo MD Work Phone: Start: 05-23-2021 Adult depression scr eening assessment [facility] Work Phone: Start: 06-18-2020 CT SCAN Provider N ot In System Start: 12-03-2019 X-RAYS Provider N ot In System Insertion of intraut erine contraceptive device Castillo Vick Work Phone: Comment on above: kyleena; No history of surgery Raheemmandeep janeth Vick Work Phone: Plan of Treatment Date Care Activity Detail Author Start: 2053 Zoster Vaccines (1 of 2) Zoster Vaccines (1 of 2) [facility] Start: 03-20-2028 Lipid panel Lipid Panel [facility] Start: 03-16-2026 DTaP/Tdap/Td Vaccines (7 - Td or Tdap) DTaP/Tdap/Td Vaccines (7 - Td or Tdap) [facility] Start: 03-16-2026 Tetanus vaccination Tetanus: Every 10yrs [facility] Start: 03-30-2025 Influenza vaccination Influenza Vaccine (#1) [facility] Start: 03-25-2025 End: 03-25-2025 Patient encounter procedure 03/25/2025 9:45 AM EDT Off ice Visit [facility] Internal Medicine [address] [place] [phone] Brendan Carrillo MD [address] [place] [address] [facility] Start: 01-23-2025 Yearly Adult Physical Yearly Adult Physical [facility] Start: 01-22-2025 History and physical examination, annual for health maintenance Wellness Visit [facility] Start: 11-30-2024 COVID-19 Vaccine ( season) COVID-19 Vaccine () [facility] Comment on above: Postponed from 03/30/2023 (Treatment Not Available) Start: 11-13-2024 End: 11-13-2024 Patient encounter procedure 11/13/2024 4:00 PM EDT Off ice Visit [facility] Internal Medicine [address] [place] [place] [phone] Brendan Carrillo MD [address] [place] [address] [facility] Start: 07-11-2024 End: 07-11-2024 Patient encounter procedure 07/11/2024 8:30 AM EST Off ice Visit [facility] Obstetrics and Gynecology [address] [facility] 2nd [place] [phone] Javan Iraheta MD [address] [facility] [address] [place] [address] [facility] Start: 07-09-2024 History and physical examination, annual for health maintenance Wellness Visit [facility] Start: 06-12-2024 End: 07-12-2024 Clostridioides difficile toxin A+B tcdA+tcdB genes [Presence] in Stool by ANNEMARIE with probe detection C. difficile, PCR Microbiology Routine Colitis Expected: 06/12/2024 (Approximate), Expires: 07/12/2024 [facility] Service Area Work Phone: Comment on above: Expected: 06/12/2024 (Approximate), Expi res: 07/12/2024 Start: 06-09-2024 End: 06-09-2024 Patient encounter procedure 06/09/2024 3:00 PM EST Procedure visit [facility] Obstetrics and Gynecology [address] [facility] 2nd [place] [phone] Javan Iraheta MD [address] [facility] [address] [place] [address] [facility] Obstetrics and Gynecology Start: 05-15-2024 End: 05-15-2024 Patient encounter procedure 05/15/2024 3:45 PM EDT Off ice Visit [facility] Internal Medicine [address] [place] [address] Brendan Carrillo MD [address] [place] [address] [facility] Start: 2024 Screening for malignant neoplasm of cervix [facility] Start: 03-30-2024 COVID-19 Vaccine ( season) COVID-19 Vaccine ( season) [facility] Start: 03-30-2024 COVID-19 Vaccine () COVID-19 Vaccine () [facility] Start: 03-30-2024 Influenza vaccination Influenza Vaccine (#1) [facility] Start: 03-25-2024 End: 03-25-2025 Colonoscopy study Colonoscopy Diagnostic Endoscopy Routine Nausea Constipation, unspecified constipation type Irritable bowel syndrome with diarrhea Expected: 03/25/2024 (Approximate), Expires: 03/25/2025 [facility] Service Area Work Phone: Comment on above: Expected: 03/25/2024 (Approximate), Expi res: 03/25/2025 Start: 03-25-2024 End: 03-25-2025 Esophagogastroduodenoscopy Esophagogastroduodenoscopy (EGD) Endoscopy Routine Nausea Expected: 03/25/2024 (Approximate), Expires: 03/25/2025 [facility] Work Phone: Comment on above: Expected: 03/25/2024 (Approximate), Expi res: 03/25/2025 Start: 03-25-2024 End: 03-25-2024 Patient encounter procedure 03/25/2024 8:45 AM EDT Off ice Visit [facility] Internal Medicine [address] [place] [phone] Brendan Carrillo MD [address] [place] [address] [facility] Start: 03-20-2024 Cyanocobalamin vitamin b-12 Vitamin B-12 [facility] Start: 03-20-2024 Vitamin D25-[place] Vitamin D25-[place] [facility] Start: 03-19-2024 End: 03-19-2024 Patient encounter procedure 03/19/2024 11:00 AM EDT Appointment [address] [phone] Health system Start: 11-18-2023 History and physical examination, annual for health maintenance Wellness Visit [facility] Start: 07-09-2023 End: 07-09-2023 Patient encounter procedure [facility] Start: 07-07-2023 History and physical examination, annual for health maintenance Wellness Visit [facility] Start: 07-07-2023 Screening for Chlamydia trachomatis Chlamydia Screening [facility] Start: 05-10-2023 End: 05-10-2024 Colonoscopy Colonoscopy Diagnostic Endoscopy Routine Postprandial epigastric pain Irritable bowel syndrome with diarrhea Expected: 05/10/2023 (Approximate), Expires: 05/10/2024 [facility] Service Area Work Phone: Comment on above: Expected: 05/10/2023 (Approximate), Expi res: 05/10/2024 Start: 04-10-2023 End: 04-10-2023 Patient encounter procedure 04/10/2023 4:15 PM EDT Off ice Visit [facility] Internal Medicine [address] [place] [phone] Brendan Carrillo MD [address] [place] [address] [facility] Start: 04-10-2023 End: 04-10-2024 NM Liver and Biliary ducts and Gallbladder Views NM hepatobiliary Imaging Routine Postprandial epigastric pain Expected: 04/10/2023, Expires: 04/10/2024 [facility] Service Area Work Phone: Comment on above: Expected: 04/10/2023, Expires: Start: 03-30-2023 COVID-19 Vaccine ( season) COVID-19 Vaccine (2 season) [facility] Start: 03-30-2023 COVID-19 Vaccine ( season) COVID-19 Vaccine ( season) [facility] Start: 03-30-2023 Influenza vaccination [facility] Start: 03-19-2023 End: 03-19-2024 25-hydroxyvitamin D3 [Mass/volume] in Serum or Plasma Vitamin D, Total Lab Routine Fatigue, unspecified type Expected: 03/19/2023 (Approximate), Expires: 03/19/2024 [facility] Work Phone: Comment on above: Expected: 03/19/2023 (Approximate), Expi res: 03/19/2024 Start: 03-19-2023 End: 03-19-2024 CBC W Auto Differential panel - Blood CBC and Auto Differential Lab Routine Gastroesophageal reflux disease, unspecified whether esophagitis present Irritable bowel syndrome with diarrhea Expected: 03/19/2023 (Approximate), Expires: 03/19/2024 [facility] Service Area Work Phone: Comment on above: Expected: 03/19/2023 (Approximate), Expi res: 03/19/2024 Start: 03-19-2023 End: 03-26-2023 Clostridioides difficile toxin A+B tcdA+tcdB genes [Presence] in Stool by ANNEMARIE with probe detection C. difficile, PCR Microbiology Routine Irritable bowel syndrome with diarrhea Expected: 03/19/2023 (Approximate), Expires: 03/26/2023 [facility] Work Phone: Comment on above: Expected: 03/19/2023 (Approximate), Expi res: 03/26/2023 Start: 03-19-2023 End: 03-19-2024 Cobalamin (Vitamin B12) [Mass/volume] in Serum or Plasma Vitamin B12 Lab Routine Fatigue, unspecified type Expected: 03/19/2023 (Approximate), Expires: 03/19/2024 [facility] Work Phone: Comment on above: Expected: 03/19/2023 (Approximate), Expi res: 03/19/2024 Start: 03-19-2023 End: 03-19-2024 Comprehensive metabolic 2000 panel - Serum or Plasma Comprehensive Metabolic Panel Lab Routine Gastroesophageal reflux disease, unspecified whether esophagitis present Expected: 03/19/2023 (Approximate), Expires: 03/19/2024 [facility] Work Phone: Comment on above: Expected: 03/19/2023 (Approximate), Expi res: 03/19/2024 Start: 03-19-2023 End: 03-19-2024 Folate [Mass/volume] in Serum or Plasma Folate Lab Routine Fatigue, unspecified type Expected: 03/19/2023 (Approximate), Expires: 03/19/2024 [facility] Work Phone: Comment on above: Expected: 03/19/2023 (Approximate), Expi res: 03/19/2024 Start: 03-19-2023 End: 03-19-2024 Lipid 1996 panel - Serum or Plasma Lipid Panel Lab Routine Lipid screening Expected: 03/19/2023 (Approximate), Expires: 03/19/2024 [facility] Work Phone: Comment on above: Expected: 03/19/2023 (Approximate), Expi res: 03/19/2024 Start: 03-19-2023 End: 03-19-2024 TSH with reflex to Free T4 if abnormal TSH with reflex to Free T4 if abnormal Lab Routine Irritable bowel syndrome with diarrhea Expected: 03/19/2023 (Approximate), Expires: 03/19/2024 [facility] Work Phone: Comment on above: Expected: 03/19/2023 (Approximate), Expi res: 03/19/2024 Start: 03-19-2023 End: 03-19-2024 [facility] Work Phone: Comment on above: Expected: 03/19/2023, Expires: Start: 11-17-2022 End: 11-17-2022 Patient encounter procedure 11/17/2022 11:00 AM EDT Of fice Visit [facility] [address] [place] [phone] Ricky Pritchard MD [address] [address] [facility] Start: 05-26-2022 End: 05-26-2022 Admission to same day surgery center 05/26/2022 Surgery Severino Gatica MD [address] [place] [address] ESOPHAGOGASTRODUODENOSCOPY [facility] [place] [facility] Comment on above: ESOPHAGOGASTRODUODENOSCOPY Start: 05-26-2022 End: 05-26-2022 Esophagogastroduodenoscopy ESOPHAGOGASTRODUODENOSCOPY Gastroesophageal reflux disease, unspecified whether esophagitis present 05/26/2022 7:50 AM EDT [facility] Start: 05-26-2022 Subsequent hospital visit by physician 05/26/2022 Hospital Encounter Severino Gatica MD [address] [place] [address] [facility] Start: 05-23-2022 Depression screening using PHQ-9 (Patient Health Questionnaire 9) score [facility] Start: 05-02-2022 End: 05-02-2022 Patient encounter procedure 05/02/2022 Office Visit Primary Care Deepa Sandoval CNP [address] [address] [facility] Start: 03-30-2022 Influenza vaccination Sequential Influenza Vaccine (#1) [facility] Start: 02-28-2022 NEWPROB, Provider: Chad Rahman, Status: Pen, Time: 11:00 AM NEWPROB, Provider: Chad Rahman, Status: Pen, Time: 11:00 AM [facility] [address] Work Phone: Start: 01-31-2022 End: 01-31-2022 Patient encounter procedure 01/31/2022 Office Visit Primary Care Deepa Sandoval CNP [address] [address] [facility] Start: 09-26-2021 COVID-19 Vaccine (2 - Pfizer series) COVID-19 Vaccine (2 - Pfizer series) [facility] Start: 08-22-2021 COVID-19 Vaccine (2 - Pfizer 3-dose series) COVID-19 Vaccine (2 - Pfizer 3-dose series) [facility] Start: 08-22-2021 COVID-19 Vaccine (2 - Pfizer series) COVID-19 Vaccine (2 - Pfizer series) [facility] Start: 06-22-2021 End: 06-22-2021 Patient encounter procedure 06/22/2021 Office Visit Primary Care Deepa Sandoval VIDEO GAME TESTER [address] [address] [facility] Start: 05-13-2021 FUV, Provider: Sujata Gonzalez, Status: Pen, Time: 10:30 AM FUV, Provider: Sujata Gonzalez, Status: Pen, Time: 10:30 AM [facility] Work Phone: Start: 04-11-2021 FUV, Provider: Sujata Gonzalez, Status: Pen, Time: 10:30 AM FUV, Provider: Sujata Gonzalez, Status: Pen, Time: 10:30 AM [facility] Work Phone: Start: 2021 Hepatitis C screening Hepatitis C Screening [facility] Start: 03-25-2021 FUV, Provider: Chad Rahman, Status: Pen, Time: 10:45 AM FUV, Provider: Chad Rahman, Status: Pen, Time: 10:45 AM [facility] [address] Work Phone: Start: 03-08-2021 NPV, Provider: Chad Rahman, Status: Pen, Time: 1:30 PM NPV, Provider: Chad Rahman, Status: Pen, Time: 1:30 PM [facility] Work Phone: Start: 02-28-2021 FUV, Provider: Sujata Gonzalez, Status: Pen, Time: 10:30 AM FUV, Provider: Sujata Gonzalez, Status: Pen, Time: 10:30 AM [facility] Work Phone: Start: 2019 Meningococcal B Vaccine (1 of 2 - Standard) Meningococcal B Vaccine (1 of 2 - Standard) [facility] Start: 05-25-2018 Vaccination for human papillomavirus HPV Vaccines (3 - 2-dose series) [facility] Start: 2018 HIV screening HIV Screening [facility] Start: 2015 COVID-19 Vaccine (1) COVID-19 Vaccine (1) [facility] Start: 2007 Hearing Screening (#1) Hearing Screening (#1) [facility] Start: 2006 History and physical examination, annual for health maintenance Wellness Visit [facility] Start: 2006 Well Child Visit (WCV) - Annual Well Child Visit (WCV) - Annual [facility] Start: 2004 Hepatitis B Surface [facility]ody [facility]: [facility] Application of dental fluoride varnish Fluoride Varnish [facility] Start: 2003 Hearing Screening (#1) Hearing Screening (#1) [facility] Start: 2003 HIV screening HIV Screening [facility] Start: 2003 Lipid panel Lipid Panel [facility] Start: 2003 Screening for Chlamydia trachomatis Chlamydia Screening [facility] Start: 2003 Screening for osteoporosis Bone Density Scan [facility] Start: 2003 TB Test TB Test [facility] Start: 2003 Yearly Adult Physical Yearly Adult Physical [facility] End: 07-07-2023 Chlamydia trachomatis rRNA assay Chlamydia/GC/Trichomonas Amplified RNA Microbiology Routine Vaginal discharge 1 Occurrences starting 07/07/2022 until 07/07/2023 [facility] Work Phone: Comment on above: 1 Occurrences starting 07/07/2022 until 07/07/2023 End: 05-08-2024 Choriogonadotropin ( test) [Presence] in Urine POCT , urine Point of Care Testing Routine Once (Lab) for 1 Occurrences starting 05/08/2024 until 05/08/2024 [facility] Service Area Work Phone: Comment on above: Once (Lab) for 1 Occurrences starting until 05/08/2024 End: 03-19-2024 CT Abdomen and Pelvis W contrast IV [facility] Service Area Work Phone: Comment on above: Once for 1 Occurrences starting 03/19/20 24 until 03/19/2024 End: 07-07-2023 Gardnerella vaginalis rRNA assay Vaginitis DNA Probes Microbiology Routine Vaginal discharge 1 Occurrences starting 07/07/2022 until 07/07/2023 [facility] Comment on above: 1 Occurrences starting 07/07/2022 until 07/07/2023 End: 05-08-2024 Moderate Sedation Moderate Sedation Procedures Routine Once for 1 Occurrences starting 05/08/2024 until 05/08/2024 [facility] Work Phone: Comment on above: Once for 1 Occurrences starting 05/08/20 until 05/08/2024 Neisseria gonorrhoea e nucleic acid detection Chlamydia/Gonorrhoeae Amplified RNA Microbiology Routine Vaginal discharge Ordered: 07/07/2022 [facility] Comment on above: Ordered: 07/07/2022 End: 05-08-2024 Pulse oximetry, spot Pulse oximetry, spot Respiratory Care Routine Once for 1 Occurrences starting 05/08/2024 until 05/08/2024 [facility] Work Phone: Comment on above: Once for 1 Occurrences starting 05/08/20 until 05/08/2024 Surgical pathology study [facility] Work Phone: Comment on above: Release Upon Ordering for 1 Occurrences starting 05/08/2024 Trichomonas vaginali s Amplified RNA Trichomonas vaginalis Amplified RNA Microbiology Routine Vaginal discharge Ordered: 07/07/2022 [facility] Comment on above: Ordered: 07/07/2022 Immunizations Immunization Date Immunization Notes Care Provider Fa [facility] 07-09-2023 influenza virus vacc ine, unspecified formulation Grazyna RUBI [facility] Comment on above: Result Comment: 2023: VIS DATE: 03/04/2021 07-09-2023 influenza, injectabl e, quadrivalent, preservative free Javan Iraheta MD Work Phone: [facility] 07-09-2023 flu vacc [id number] 6 mos up,PF, (FLUZONE QUAD/FLULAVAL QUAD/FLUARIX QUAD) 60 mcg (15 mcg x 4)/0.5 mL Syrg syringe Javan Iraheta MD Work Phone: [facility] 10-04-2021 SARS-CoV-2 mRNA (aufjixrevnv-vzyn-vbtbhv e) vaccine Grazyna FISCHERBING [facility] 08-04-2021 meningococcal ACWY vaccine, unspecified formulation Grazyna FISCHERBING [facility] Comment on above: Result Comment: 2023: VIS DATE: 03/13/2019 08-04-2021 meningococcal polysaccharide (groups A, C, Y and W-135) diphtheria toxoid conjugate vaccine (MCV4P) [facility] Work Phone: [facility] 08-04-2021 meningococcal vaccin e of unknown formulation and unknown serogroups [facility] Work Phone: [facility] 08-01-2021 Pfizer-BioNTech COVI D-19 Vacc 30 MCG/0.3ML Intramuscular Suspension No PCP None [facility] Comment on above: Series: 05-23-2021 influenza, injectabl e, quadrivalent, preservative free [facility] Work Phone: [facility] 05-23-2021 flu vacc [id number] 6 mos up,PF, (FLUZONE QUAD) injection [facility] Work Phone: [facility] 05-23-2021 influenza virus vacc ine, unspecified formulation Brendan Carrillo MD Work Phone: [facility] Work Phone: Comment on above: Result Comment: 2023: VIS DATE: 03/13/2019 01-25-2018 Human Papillomavirus 9-valent vaccine Castillo Vick Work Phone: [facility] Work Phone: 01-25-2018 HPV, unspecified formulation Mallory Anais [facility] Work Phone: [facility] 11-23-2017 HPV, unspecified formulation Grazyna VENEGAS [facility] 11-23-2017 Human Papillomavirus 9-valent vaccine Castillo Lucille Vick Work Phone: [facility] Work Phone: 03-16-2016 meningococcal ACWY vaccine, unspecified formulation Grazyna VENEGAS [facility] 03-16-2016 meningococcal oligosaccharide (groups A, C, Y and W-135) diphtheria toxoid conjugate vaccine (MCV4O) [facility] Work Phone: [facility] 03-16-2016 tetanus toxoid, redu jonathan diphtheria toxoid, and acellular pertussis vaccine, adsorbed [facility] Work Phone: [facility] 03-11-2008 diphtheria, tetanus toxoids and acellular pertussis vaccine [facility] Work Phone: [facility] 03-11-2008 diphtheria, tetanus toxoids and acellular pertussis vaccine, unspecified formulation Castillo L Nava Work Phone: [facility] Work Phone: 03-11-2008 DTaP, unspecified formulation Grazyna VENEGAS [facility] 03-11-2008 poliovirus vaccine, inactivated Castillo L Nava Work Phone: [facility] Work Phone: 03-11-2008 poliovirus vaccine, unspecified formulation Grazyna ROBBING [facility] 03-11-2008 varicella virus vaccine Raheem las L Nava Work Phone: [facility] Work Phone: 06-14-2005 influenza virus vacc ine, unspecified formulation Grazyna ROBUCK [facility] 06-14-2005 influenza, seasonal, injectable Castillo L Nava Work Phone: [facility] Work Phone: 10-12-2004 influenza virus vacc ine, whole virus Castillo L Nava Work Phone: [facility] Work Phone: 10-12-2004 influenza, whole Grazyna ROBUC K [facility] 05-31-2004 influenza virus vacc ine, whole virus Castillo Cartwrighter Work Phone: [facility] Work Phone: 05-31-2004 influenza, whole Grazyna MAR K [facility] 05-31-2004 pneumococcal conjuga te vaccine, 13 valent Castillo L Nava Work Phone: [facility] Work Phone: 05-23-2004 measles, mumps and rubella virus vaccine Castillo L Nava Work Phone: [facility] Work Phone: 05-23-2004 varicella virus vaccine Raheem las L Nava Work Phone: [facility] Work Phone: 04-25-2004 DTaP-hepatitis B and poliovirus vaccine Castillo L Nava Work Phone: [facility] Work Phone: 04-25-2004 haemophilus influenz ae type b vaccine, conjugate unspecified formulation Castillo L Nava Work Phone: [facility] Work Phone: 04-25-2004 Hib, unspecified formulation Grazyna VENEGAS [facility] 04-25-2004 measles, mumps and rubella virus vaccine Castillo L Nava Work Phone: [facility] Work Phone: 2003 DTaP-hepatitis B and poliovirus vaccine Castillo L Nava Work Phone: [facility] Work Phone: 2003 haemophilus influenz ae type b vaccine, conjugate unspecified formulation Castillo L Nava Work Phone: [facility] Work Phone: 2003 Hib, unspecified formulation Grazyna ROBUCK [facility] 2003 diphtheria, tetanus toxoids and acellular pertussis vaccine Deep[facility] Work Phone: [facility] 2003 diphtheria, tetanus toxoids and acellular pertussis vaccine, unspecified formulation Castillo L Nava Work Phone: [facility] Work Phone: 2003 DTaP, unspecified formulation Grazyna ROBBING [facility] 2003 haemophilus influenz ae type b vaccine, conjugate unspecified formulation Castillo L Nava Work Phone: [facility] [facility] Work Phone: 2003 Hib, unspecified formulation Grazyna ROBUCK [facility] 2003 poliovirus vaccine, inactivated Castillo L Nava Work Phone: [facility] Work Phone: 2003 poliovirus vaccine, unspecified formulation Grazyna ROBUCK [facility] 2003 tetanus toxoid, redu jonathan diphtheria toxoid, and acellular pertussis vaccine, adsorbed Brendan Carrillo MD Work Phone: [facility] Work Phone: 2003 pneumococcal conjuga te vaccine, 13 valent Castillo L Nava Work Phone: [facility] Work Phone: 2003 DTaP-hepatitis B and poliovirus vaccine Castillo L Nava Work Phone: [facility] Work Phone: 2003 haemophilus influenz ae type b vaccine, conjugate unspecified formulation Castillo Vick Work Phone: [facility] Work Phone: 2003 hepatitis B vaccine, pediatric or pediatric/adolescent dosage Brendan Carrillo MD Work Phone: [facility] Work Phone: 2003 Hib, unspecified formulation Grazyna VENEGAS [facility] 2003 pneumococcal conjuga te vaccine, 13 valent Castillo Vick Work Phone: [facility] Work Phone: 2003 hepatitis B vaccine, pediatric or pediatric/adolescent dosage Castillo Vick Work Phone: [facility] Work Phone: Payers Date Payer Category Payer Self-pay 2023 Worker's Compensation [phone] 2020 Unknown [facility] [employer] [id number] 2020-Present [phone] [address] [address] [place] [address] [id number]. [id number] 2019 Managed Care (Private) 1.2.8 [id number] 2019 Managed Care (unspecified) [facility] [id number]. [id number] 2019 Private Health Insurance [id number] 2019 Unknown [id number] 2016 Private Health Insurance [id number] .[id number]. 2.7.3.206813.315 2016 Unknown 2016 Unknown [id number] 2003 Unknown [id number] 2.16.840.1.963229.3.579. 2.903 2003 Unknown [id number] 2.16.840.1.488591.3.579. 2.1069 2003 Unknown [id number] 2.16.840.1.456797.3.579. 2.1069 2003 Unknown [id number] 2.16.840.1.866106.3.579. 2.902 2003 Unknown [id number] 2.16.840.1.629583.3.579. 2.902 2003 Unknown [id number] 2.16.840.1.322062.3.579. 2.727 2003 Unknown [id number] 2.16.840.1.572345.3.579. 2.1245 2003 Unknown [id number] 2.16.840.1.949454.3.579. 2.903 2003 Unknown [id number] 2.16.840.1.017307.3.579. 2.903 2003 Unknown [id number] 2.16.840.1.549334.3.579. 2.903 2003 Unknown [id number] 2.16.840.1.465190.3.579. 2.903 2003 Unknown [id number] 2.16.840.1.121086.3.579. 2.1244 2003 Unknown [id number] 2.16.840.1.979434.3.579. 2.4 2003 Unknown [id number] 2.16.840.1.439698.3.579. 2.1243 2003 Unknown [id number] 2.16840.1.999780.3.579. 2.1243 2003 Unknown [id number] 2.840.1.006191.3.579. 2.1243 2003 Unknown [id number] 2.840.1.603624.3.579. 2.1243 2003 Unknown [id number] 2.840.1.102601.3.579. 2.1243 2003 Unknown [id number] 2.840.1.463792.3.579. 2.1242 2003 Unknown [id number] 2.840.1.860278.3.579. 2.1242 2003 Unknown [id number] 2.840.1.738907.3.579. 2.1242 2003 Unknown [id number] 2.840.1.445170.3.579. 2.1242 2003 Unknown [id number] 2.840.1.866703.3.579. 2.1243 Private Health Insurance [id number] Unknown [id number] 2840.1.947033.3.579. 2.462 Unknown [id number] 2.840.1.628927.3.579. 2.462 Unknown [id number] 2.840.1.528795.3.579. 2.462 Unknown [id number] 2.840.1.324629.3.579. 2.462 Unknown [id number] 2.840.1.449286.3.579. 2.462 Unknown [id number] 2.840.1.031200.3.579. 2.462 Social History Date Type Detail Facility Start: 03-30-2022 End: 02-25-2025 Never a smoker Never a smoker [facility] Work Phone: Start: 05-23-2021 End: 03-13-2023 Tobacco smoking status NHIS Never smoked tobacco [facility] Start: 05-23-2021 End: 03-13-2023 Tobacco use and exposure Smokeless tobacco non-user [facility] Start: 05-23-2021 End: 06-09-2024 Alcohol intake Lifetime non-drinker (finding) [facility] Start: 05-23-2021 End: 03-30-2022 History SDOH Alcohol Frequency 1 [facility] Start: 2003 Sex Assigned At Not on file [facility] Start: 10-21-2021 End: 08-12-2024 Exposure to SARS-CoV-2 (event) Not sure [facility] Start: 03-30-2022 History SDOH Alcohol Frequency 2 [facility] Start: 03-30-2022 History SDOH Social Connections Phone 5 [facility] Start: 03-30-2022 History SDOH Social Connections Living 98 [facility] Start: 03-30-2022 History SDOH Physica l Activity MPS 6 [facility] Start: 03-30-2022 History SDOH Housing Unable to Pay 3 [facility] Start: 03-30-2022 End: 02-25-2025 Humiliation, Afraid, Rape, and Kick questionnaire [HARK] [facility] Within the last year , have you been afraid of your partner or ex-partner? No [facility] Are you now , , , , never or living with a partner? Refused [facility] How often to you hav e a drink containing alcohol? Monthly or less [facility] How many standard drinks containing alcohol do you have on a typical day? 1 or 2 [facility] How often do you hav e 6 or more drinks on 1 occasion? Never [facility] Start: 06-24-2022 How hard is it for y ou to pay for the very basics like food, housing, medical care, and heating Not hard at all [facility] Do you feel stress - tense, restless, nervous, or anxious, or unable to sleep at night because your mind is troubled all the time - these days [OSQ] Not at all [facility] (I/We) worried wheth er (my/our) food would run out before (I/we) got money to buy more. 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) [facility] Tobacco smoking consumption unknown Health system Start: 03-19-2023 End: 03-02-2025 Alcohol intake Ex-drinker (finding) [facility] Work Phone: Tobacco smoking status No Smokin g Status Entered [facility] Start: 05-08-2024 Alcohol Comment once a week [facility] Work Phone: Start: 2003 Sex assigned at Female [facility] NEGATED: Highlighted rowStart: NINF History of tobacco use Passive smoker [facility] Work Phone: Functional Status Date Assessment Result Facility 02-25-2025 Patient [facility] ionnaire 2 item (PHQ-2) [Reported] [facility] Work Phone: Clinical Notes 03-13-2018 to 03-02-2025 Cori Hernandez APRN-VIDEO GAME TESTER - 03/02/2025 2:45 PM Ramin Carrillo MD - 02/25/2025 10:30 AM Denny Shaffer PA-C - 02/23/2025 11:10 AM Ramin Carrillo MD - 08/12/2024 4:30 PM EST Note Date & Type Note Facility 03-02-2025 History of Present illness Narrative [facility] NOTE: Name: Nathalie Lundberg, 19 y.o. CSN:[id number] ALL: Allergies[1] Chief Complaint: URI (Sore throat, hurts to swallow, sinus drainage, congestion x 1 week) Encounter Date: 03/02/2025 HPI: The history was obtained from the patient. Nathalie is a 19 y.o. female, who presents with a chief complaint of sinus pressure and nasal congestion, bilateral ear pain/fullness, productive cough, mild sore throat, red eyes, and fatigue ( seen by ophthalmology today). Mild shortness of breath with exertion, denies wheezing. Symptoms began 7-8 days ago, reports symptoms have progressively worsened since onset. Denies any body aches, abdominal pain, chest pain, rashes, urinary symptoms, vomiting, and diarrhea. Denies any lightheadedness or dizziness; no changes in mental status. No swelling in legs. Appetite is decreased; is able to eat and drink fluids without difficulty. Has been taking utilized Claritin without much relief; no other [id number]-[id number] medications or home remedies for symptom management. No known ill contacts. No known history of asthma/COPD/respiratory issues. Denies any recent antibiotic use PMHx: Medical History[2] Current Medications[3] PMSx: Surgical History[4] Fam Hx: Family History[5] SOC. Hx: Social History Socioeconomic History Marital status: Single Spouse name: Not on file Number of children: Not on file Years of education: Not on file Highest education level: Not on file Occupational History Not on file Tobacco Use Smoking status: Never Passive exposure: Never Smokeless tobacco: Never Vaping Use Vaping status: Every Day Start date: 05/08/2023 Substances: Nicotine Devices: Disposable Substance and Sexual Activity Alcohol use: Not Currently Alcohol/week: 4.0 standard drinks of alcohol Types: 4 Shots of liquor per week Comment: once a week Drug use: Never Sexual activity: Defer Other Topics Concern Not on file Social History Narrative Not on file Social Drivers of Health Financial Resource Strain: Low Risk (03/30/2022) Received from [facility] Overall Financial Resource Strain (CARDIA) Difficulty of Paying Living Expenses: Not hard at all Food Insecurity: No Food Insecurity (03/30/2022) Received from [facility] Hunger Vital Sign Within the past 12 months, you worried that your food would run out before you got the money to buy more.: Never true Within the past 12 months, the food you bought just didn't last and you didn't have money to get more.: Never true Transportation Needs: No Transportation Needs (03/30/2022) Received from [facility] PRAPARE - Transportation Lack of Transportation (Medical): No Lack of Transportation (Non-Medical): No Physical Activity: Insufficiently Active (03/30/2022) Received from [facility] Exercise Vital Sign On average, how many days per week do you engage in moderate to strenuous exercise (like a brisk walk)?: 2 days On average, how many minutes do you engage in exercise at this level?: 60 min Stress: No Stress Concern Present (03/30/2022) [facility] - Occupational Stress Questionnaire Feeling of Stress : Not at all Social Connections: Unknown (03/30/2022) Received from [facility] Social Connection and Isolation Panel In a typical week, how many times do you talk on the phone with family, friends, or neighbors?: More than three times a week How often do you get together with friends or relatives?: More than three times a week How often do you attend mandaen or sikh services?: 1 to 4 times per year Do you belong to any clubs or organizations such as mandaen groups, unions, fraternal or athletic groups, or school groups?: No How often do you attend meetings of the clubs or organizations you belong to?: Never Are you , , , , never , or living with a partner?: Patient declined Intimate Partner Violence: Not At Risk (03/30/2022) Received from [facility] Humiliation, Afraid, Rape, and Kick questionnaire Within the last year, have you been afraid of your partner or ex-partner?: No Within the last year, have you been humiliated or emotionally abused in other ways by your partner or ex-partner?: No Within the last year, have you been kicked, hit, slapped, or otherwise physically hurt by your partner or ex-partner?: No Within the last year, have you been raped or forced to have any kind of sexual activity by your partner or ex-partner?: No Housing Stability: Unknown (03/30/2022) Received from [facility] Housing Stability Vital Sign Unable to Pay for Housing in the Last Year: Patient refused Number of Places Lived in the Last Year: 1 Unstable Housing in the Last Year: No Vitals: 03/02/25 1509 BP: 100/66 Pulse: 75 Temp: 36.7 C (98 F) SpO2: 100% 57.2 kg (126 lb) Physical Exam Vitals and nursing note reviewed. Constitutional: Appearance: Normal appearance. HENT: Head: Normocephalic and atraumatic. Right Ear: Hearing, ear canal and external ear normal. A middle ear effusion is present. Tympanic membrane is erythematous. Tympanic membrane is not bulging. Tympanic membrane has normal mobility. Left Ear: Hearing, ear canal and external ear normal. A middle ear effusion is present. Tympanic membrane is erythematous. Tympanic membrane is not bulging. Tympanic membrane has normal mobility. Nose: Congestion and rhinorrhea present. Rhinorrhea is purulent. Right Sinus: Maxillary sinus tenderness and frontal sinus tenderness present. Left Sinus: Maxillary sinus tenderness and frontal sinus tenderness present. Mouth/Throat: Lips: Ehrenberg. Mouth: Mucous membranes are moist. Pharynx: Uvula midline. Posterior oropharyngeal erythema present. No pharyngeal swelling or oropharyngeal exudate. Tonsils: No tonsillar exudate. Cardiovascular: Rate and Rhythm: Normal rate and regular rhythm. Heart sounds: Normal heart sounds. Pulmonary: Effort: Pulmonary effort is normal. Breath sounds: Normal breath sounds. Abdominal: General: Bowel sounds are normal. Skin: General: Skin is warm and dry. Neurological: Mental Status: She is alert and oriented to person, place, and time. ____ I did personally review Nathalie's past medical history, surgical history, social history, as well as family history (when relevant). In this case, I also oversaw the her drug management by reviewing her medication list, allergy list, as well as the medications that I prescribed during the UC course and/or recommended as an out-patient (including possible OTC medications such as acetaminophen, NSAIDs , etc). After reviewing the items above, I did look at previous medical documentation, such as recent hospitalizations, office visits, and/or recent consultations with PCP/specialist. SDOH: Another factor that I considered in Nathalie's care was her Social Determinants of Health (SDOH). During this UC encounter, she did not have social determinants of health. Those SDOH influencing Nathalie's care are: none COURSE/MEDICAL DECISION MAKING: Nathalie is a 19 y.o., who presents with a working diagnosis of 1. Acute bacterial sinusitis with a differential to include: Influenza, parainfluenza, rhinovirus, adenovirus, metapneumovirus, coronavirus, COVID-19, postnasal drip, strep pharyngitis, GERD, retropharyngeal abscess, tonsillitis, adenitis, seasonal allergies Plan: Augmentin 1 tab twice daily for 10 days Zyrtec D for symptom management Encouraged to increase p.o. fluids, humidified air Continue eye treatment as ordered by ophthalmology Return to urgent care, primary care provider, or emergency department with worsening symptoms No red flags on exam. Plan of care reviewed with patient, agreeable to discharge Rodegr Hernandez DNP Advanced Practice Provider [facility] Please note: While the patient may or may not have received printed discharge paperwork, all relevant medical findings, test results, and treatment details are accessible through the electronic medical record system. The patient is encouraged to review their chart via the patient portal for comprehensive information and follow-up instructions. [1] Allergies Allergen Reactions Prednisone Hives [2] Past Medical History: Diagnosis Date Acute right ankle pain 03/13/2023 Anxiety Deep dyspareunia in female 03/13/2023 Depression GERD (gastroesophageal reflux disease) Headache 03/13/2023 Other conditions influencing health status Menstruation Pelvic pain in female 03/13/2023 Presence of (intrauterine) contraceptive device IUD (intrauterine device) in place Sore throat 03/13/2023 [3] Current Outpatient Medications Medication Sig Dispense Refill EPINEPHrine (Epipen) 0.3 mg/0.3 mL injection syringe Inject 0.3 mL (0.3 mg) into the muscle if needed for anaphylaxis. Call 911 after use. 1 each 3 levonorgestreL (Kyleena) 17.5 mcg/24 hrs (5 yrs) 19.5 mg intrauterine device by intrauterine route. loratadine (Claritin) 10 mg tablet Take 1 tablet (10 mg) by mouth once daily. 30 tablet 2 vnruufka-mwrcheccn-dtcMTNHJbvamp (Maxitrol) 3.5mg/mL-10,000 unit/mL-0.1 % ophthalmic suspension amoxicillin-clavulanate (Augmentin) 875-125 mg tablet Take 1 tablet by mouth 2 times a day for 10 days. 20 tablet 0 cetirizine-pseudoephedrine (ZyrTEC-D) 5-120 mg 12 hr tablet Take 1 tablet by mouth 2 times a day for 14 days. 28 tablet 0 hyoscyamine (Levsin) 0.125 mg tablet Take 1 tablet (0.125 mg) by mouth 4 times a day as needed for cramping or diarrhea for up to 10 days. 40 tablet 0 lactobacillus acidophilus (Acidophilus) capsule Take 2 capsules by mouth once daily. (Patient not taking: Reported on 03/02/2025) olopatadine (Pataday Once Daily Relief) 0.2 % ophthalmic solution Administer 1 drop into both eyes 2 times a day. (Patient not taking: Reported on 03/02/2025) 5 mL 0 polymyxin B sulf-trimethoprim (Polytrim) ophthalmic solution Administer 1 drop into both eyes every 4 hours for 10 days. (Patient not taking: Reported on 03/02/2025) 10 mL 0 No current facility-administered medications for this visit. [4] Past Surgical History: Procedure Laterality Date ESOPHAGOGASTRODUODENOSCOPY 2021 INTRAUTERINE DEVICE INSERTION kyleena [5] Family History Problem Relation Name Age of Onset No Known Problems Mother No Known Problems Father Diabetes Other Hypertension Other FLORY disease Other Migraines Other documented in this encounter [facility] Work Phone: 02-25-2025 History of Present illness Narrative Subjective Patient ID: Nathalie Lundberg is a 19 y.o. female who presents for Follow-up (Pt co allergic reaction eyes and throat was seen by urgent care given drops but not any better). Woke up on Sunday Eyes got swollen face got swollen Went to urgent care, got eye drop Every morning the eyes are crusted , discharge, itchy, red Review of Systems Constitutional: Negative. Negative for chills and fever. HENT: Positive for congestion, facial swelling, postnasal drip, rhinorrhea and sinus pressure. Eyes: Negative. Negative for discharge. Respiratory: Negative. Negative for cough, shortness of breath and wheezing. Cardiovascular: Negative. Negative for chest pain, palpitations and leg swelling. Gastrointestinal: Negative. Negative for abdominal distention, abdominal pain, constipation, diarrhea, nausea and vomiting. Endocrine: Negative. Genitourinary: Negative. Negative for dysuria and urgency. Musculoskeletal: Negative. Negative for back pain, joint swelling and neck stiffness. Skin: Negative. Negative for rash. Allergic/Immunologic: Negative. Negative for immunocompromised state. Neurological: Negative. Negative for light-headedness, numbness and headaches. Hematological: Negative. Negative for adenopathy. Psychiatric/Behavioral: Negative. Negative for agitation, behavioral problems and confusion. All other systems reviewed and are negative. Objective Physical Exam Vitals reviewed. Constitutional: General: She is not in acute distress. Appearance: Normal appearance. HENT: Head: Normocephalic and atraumatic. Nose: Congestion present. Eyes: General: Right eye: Discharge (SLIGHT, MILD RED) present. Left eye: Discharge (SLIGHT. MILD RED) present. Pupils: Pupils are equal, round, and reactive to light. Neck: Vascular: No carotid bruit. Cardiovascular: Rate and Rhythm: Normal rate and regular rhythm. Pulses: Normal pulses. Heart sounds: No gallop. Pulmonary: Effort: Pulmonary effort is normal. No respiratory distress. Breath sounds: Normal breath sounds. No wheezing. Abdominal: General: Bowel sounds are normal. Palpations: Abdomen is soft. Tenderness: There is no abdominal tenderness. Musculoskeletal: General: Normal range of motion. Cervical back: Normal range of motion. No rigidity. Lymphadenopathy: Cervical: No cervical adenopathy. Skin: General: Skin is warm. Findings: No rash. Neurological: General: No focal deficit present. Mental Status: She is alert and oriented to person, place, and time. Psychiatric: Mood and Affect: Mood normal. Behavior: Behavior normal. BP 119/70 (BP Location: Right arm, Patient Position: Sitting) Pulse 72 Ht 1.651 m (5' 5) Wt 57.2 kg (126 lb) BMI 20.97 kg/m Hemoglobin A1C Date/Time Value Ref Range Status 02/11/2021 09:45 AM 4.7 % Final Comment: Diagnosis of Diabetes-Adults Non-Diabetic: < or = 5.6% Increased risk for developing diabetes: 5.7-6.4% Diagnostic of diabetes: > or = 6.5% . Monitoring of Diabetes Age (y) Therapeutic Goal (%) Adults: >18 <7.0 Pediatrics: 13-18 <7.5 7-12 <8.0 0- 6 7.5-8.5 [place] [employer]. Diabetes Care 33(S1), Jul 2009. Assessment/Plan Problem List Items Addressed This Visit None Visit Diagnoses Allergic rhinitis, unspecified seasonality, unspecified trigger - Primary Relevant Medications loratadine (Claritin) 10 mg tablet EPINEPHrine (Epipen) 0.3 mg/0.3 mL injection syringe Mucopurulent conjunctivitis of both eyes Relevant Medications olopatadine (Pataday Once Daily Relief) 0.2 % ophthalmic solution Fu 1 mo documented in this encounter [facility] Work Phone: 02-23-2025 History of Present illness Narrative [facility] NOTE: Name: Nathalie Lundberg, 19 y.o. CSN:[id number] PCP: Brendan Carrillo MD ALL: Allergies[1] History: Chief Complaint: BL eyes discharge (Eye redness, face swelling, sore throat x yesterday) Encounter Date: 02/23/2025 11:40 At the beginning of the encounter, I introduced myself to the patient as a Physician Coat Operator Insulator in the urgent care setting, ensuring they understood my role in their care and establishing rapport. HPI: The history was obtained from the patient and significant other. Nathalie is a 19 y.o. female, who presents with a chief complaint of BL eyes discharge (Eye redness, face swelling, sore throat x yesterday) mentions for the last 24 hours she has exhibited some eye redness facial swelling sore throat nasal congestion and drainage from the sinuses, this after an outing to [facility]. Patient took Claritin today which seemed to have improved some of her symptoms but she still having a little slight grittiness sensation affecting the eyes, she has not had any notable discharge since this morning. Denies any visual disturbance, loss of vision, pain with eye movement or periorbital swelling. PMHx: Medical History[2] Current Medications[3] PMSx: Surgical History[4] Fam Hx: Family History[5] SOC. Hx: Social History Socioeconomic History Marital status: Single Spouse name: Not on file Number of children: Not on file Years of education: Not on file Highest education level: Not on file Occupational History Not on file Tobacco Use Smoking status: Never Passive exposure: Never Smokeless tobacco: Never Vaping Use Vaping status: Every Day Start date: 05/08/2023 Substances: Nicotine Devices: Disposable Substance and Sexual Activity Alcohol use: Not Currently Alcohol/week: 4.0 standard drinks of alcohol Types: 4 Shots of liquor per week Comment: once a week Drug use: Never Sexual activity: Defer Other Topics Concern Not on file Social History Narrative Not on file Social Drivers of Health Financial Resource Strain: Low Risk (03/30/2022) Received from [facility] Overall Financial Resource Strain (CARDIA) Difficulty of Paying Living Expenses: Not hard at all Food Insecurity: No Food Insecurity (03/30/2022) Received from [facility] Hunger Vital Sign Within the past 12 months, you worried that your food would run out before you got the money to buy more.: Never true Within the past 12 months, the food you bought just didn't last and you didn't have money to get more.: Never true Transportation Needs: No Transportation Needs (03/30/2022) Received from [facility] PRAPARE - Transportation Lack of Transportation (Medical): No Lack of Transportation (Non-Medical): No Physical Activity: Insufficiently Active (03/30/2022) Received from [facility] Exercise Vital Sign On average, how many days per week do you engage in moderate to strenuous exercise (like a brisk walk)?: 2 days On average, how many minutes do you engage in exercise at this level?: 60 min Stress: No Stress Concern Present (03/30/2022) Received from [facility] [place] of Occupational Health - Occupational Stress Questionnaire Feeling of Stress : Not at all Social Connections: Unknown (03/30/2022) Received from [facility] Social Connection and Isolation Panel In a typical week, how many times do you talk on the phone with family, friends, or neighbors?: More than three times a week How often do you get together with friends or relatives?: More than three times a week How often do you attend mandaen or sikh services?: 1 to 4 times per year Do you belong to any clubs or organizations such as mandaen groups, unions, fraternal or athletic groups, or school groups?: No How often do you attend meetings of the clubs or organizations you belong to?: Never Are you , , , , never , or living with a partner?: Patient declined Intimate Partner Violence: Not At Risk (03/30/2022) Received from [facility] Humiliation, Afraid, Rape, and Kick questionnaire Within the last year, have you been afraid of your partner or ex-partner?: No Within the last year, have you been humiliated or emotionally abused in other ways by your partner or ex-partner?: No Within the last year, have you been kicked, hit, slapped, or otherwise physically hurt by your partner or ex-partner?: No Within the last year, have you been raped or forced to have any kind of sexual activity by your partner or ex-partner?: No Housing Stability: Unknown (03/30/2022) Received from [facility] Housing Stability Vital Sign Unable to Pay for Housing in the Last Year: Patient refused Number of Places Lived in the Last Year: 1 Unstable Housing in the Last Year: No Vitals: 02/23/25 1112 BP: 103/57 Pulse: 80 Resp: 16 Temp: 36.1 C (96.9 F) SpO2: 100% Physical Exam Vitals reviewed. Constitutional: Appearance: Normal appearance. HENT: Head: Normocephalic and atraumatic. Right Ear: Hearing normal. Left Ear: Hearing normal. Nose: Mucosal edema and congestion present. Right Turbinates: Not enlarged or swollen. Left Turbinates: Not enlarged or swollen. Mouth/Throat: Mouth: Mucous membranes are moist. Pharynx: No oropharyngeal exudate. Eyes: General: Lids are normal. Vision grossly intact. Right eye: No foreign body or discharge. Left eye: No foreign body or discharge. Extraocular Movements: Extraocular movements intact. Conjunctiva/sclera: Right eye: Right conjunctiva is injected. No chemosis, exudate or hemorrhage. Left eye: Left conjunctiva is injected. No chemosis, exudate or hemorrhage. Pupils: Pupils are equal, round, and reactive to light. Cardiovascular: Rate and Rhythm: Normal rate. Pulses: Normal pulses. Pulmonary: Effort: Pulmonary effort is normal. Breath sounds: Normal breath sounds. No decreased breath sounds, wheezing or rhonchi. Musculoskeletal: General: Normal range of motion. Cervical back: Normal range of motion. Lymphadenopathy: Head: Right side of head: No submandibular, preauricular or posterior auricular adenopathy. Left side of head: No submandibular, preauricular or posterior auricular adenopathy. Skin: General: Skin is warm and dry. Capillary Refill: Capillary refill takes less than 2 seconds. Neurological: Mental Status: She is alert and oriented to person, place, and time. ____ I did personally review Nathalie's past medical history, surgical history, social history, as well as family history (when relevant). In this case, I also oversaw the her drug management by reviewing her medication list, allergy list, as well as the medications that I prescribed during the UC course and/or recommended as an out-patient (including possible OTC medications such as acetaminophen, NSAIDs , etc). After reviewing the items above, I did look at previous medical documentation, such as recent hospitalizations, office visits, and/or recent consultations with PCP/specialist. SDOH: Another factor that I considered in Nathalie's care was her Social Determinants of Health (SDOH). During this UC encounter, she did not have social determinants of health. Those SDOH influencing Nathalie's care are: none COURSE/MEDICAL DECISION MAKING: Nathalie is a 19 y.o., who presents with a working diagnosis of 1. Mucopurulent conjunctivitis of both eyes Patient does appear to be suffering from an allergic conjunctivitis however with mucopurulent discharge and the mild aching I do feel it is prompting the need for an antibiotic, we have reassured her in the findings, she does not wear any contacts, we recommend use of antihistamine drops, discussed frequent handwashing cool compresses to the eyes and she was given a note for work at discharge. Alexandria Shaffer PA-C Advanced Practice Provider [facility] Please note: While the patient may or may not have received printed discharge paperwork, all relevant medical findings, test results, and treatment details are accessible through the electronic medical record system. The patient is encouraged to review their chart via the patient portal for comprehensive information and follow-up instructions. [1] Allergies Allergen Reactions Prednisone Hives [2] Past Medical History: Diagnosis Date Acute right ankle pain 03/13/2023 Anxiety Deep dyspareunia in female 03/13/2023 Depression GERD (gastroesophageal reflux disease) Headache 03/13/2023 Other conditions influencing health status Menstruation Pelvic pain in female 03/13/2023 Presence of (intrauterine) contraceptive device IUD (intrauterine device) in place Sore throat 03/13/2023 [3] Current Outpatient Medications Medication Sig Dispense Refill levonorgestreL (Kyleena) 17.5 mcg/24 hrs (5 yrs) 19.5 mg intrauterine device by intrauterine route. hyoscyamine (Levsin) 0.125 mg tablet Take 1 tablet (0.125 mg) by mouth 4 times a day as needed for cramping or diarrhea for up to 10 days. 40 tablet 0 lactobacillus acidophilus (Acidophilus) capsule Take 2 capsules by mouth once daily. (Patient not taking: Reported on 02/23/2025) olopatadine (Pataday Once Daily Relief) 0.2 % ophthalmic solution Administer 1 drop into both eyes once daily. 5 mL 0 polymyxin B sulf-trimethoprim (Polytrim) ophthalmic solution Administer 1 drop into both eyes every 4 hours for 10 days. 10 mL 0 No current facility-administered medications for this visit. [4] Past Surgical History: Procedure Laterality Date ESOPHAGOGASTRODUODENOSCOPY 2021 INTRAUTERINE DEVICE INSERTION kyleena [5] Family History Problem Relation Name Age of Onset No Known Problems Mother No Known Problems Father Diabetes Other Hypertension Other FLORY disease Other Migraines Other documented in this encounter [facility] Work Phone: 08-12-2024 History of Present illness Narrative Subjective Patient ID: Nathalie Lundberg is a 19 y.o. female who presents for Follow-up (PT CO RASH VERY ITCHY AND UNCOMFORTABLE EVERYWHERE). RASH ITCH UPPER AND LOWER EXT X 1 WEEK NO NEW MEDS NO NEW SOAP OR SUPPLY STILL GET DIARRHEA AND SOME TIME CRAMPS Review of Systems Constitutional: Negative. Negative for chills and fever. HENT: Negative. Negative for congestion. Eyes: Negative. Negative for discharge. Respiratory: Negative. Negative for cough, shortness of breath and wheezing. Cardiovascular: Negative. Negative for chest pain, palpitations and leg swelling. Gastrointestinal: Positive for diarrhea (OFF AND ON). Negative for abdominal distention, abdominal pain, constipation, nausea and vomiting. Endocrine: Negative. Genitourinary: Negative. Negative for dysuria and urgency. Musculoskeletal: Negative. Negative for back pain, joint swelling and neck stiffness. Skin: Positive for rash. Allergic/Immunologic: Negative. Negative for immunocompromised state. Neurological: Negative. Negative for light-headedness, numbness and headaches. Hematological: Negative. Negative for adenopathy. Psychiatric/Behavioral: Negative. Negative for agitation, behavioral problems and confusion. All other systems reviewed and are negative. Objective Physical Exam Vitals reviewed. Constitutional: General: She is not in acute distress. Appearance: Normal appearance. HENT: Head: Normocephalic and atraumatic. Nose: Nose normal. Eyes: Conjunctiva/sclera: Conjunctivae normal. Pupils: Pupils are equal, round, and reactive to light. Neck: Vascular: No carotid bruit. Cardiovascular: Rate and Rhythm: Normal rate and regular rhythm. Pulses: Normal pulses. Heart sounds: No gallop. Pulmonary: Effort: Pulmonary effort is normal. No respiratory distress. Breath sounds: Normal breath sounds. No wheezing. Abdominal: General: Bowel sounds are normal. Palpations: Abdomen is soft. Tenderness: There is no abdominal tenderness. Musculoskeletal: General: Normal range of motion. Cervical back: Normal range of motion. No rigidity. Lymphadenopathy: Cervical: No cervical adenopathy. Skin: General: Skin is warm. Findings: Rash (MILD ERYTHEMATOUS UPPER EXT, DERMOGRAPHIC SIGNS POSITIVE) present. Neurological: General: No focal deficit present. Mental Status: She is alert and oriented to person, place, and time. Psychiatric: Mood and Affect: Mood normal. Behavior: Behavior normal. BP 110/66 (BP Location: Right arm, Patient Position: Sitting) Pulse 67 Ht 1.651 m (5' 5) Wt 62.6 kg (138 lb) BMI 22.96 kg/m Hemoglobin A1C Date/Time Value Ref Range Status 02/11/2021 09:45 AM 4.7 % Final Comment: Diagnosis of Diabetes-Adults Non-Diabetic: < or = 5.6% Increased risk for developing diabetes: 5.7-6.4% Diagnostic of diabetes: > or = 6.5% . Monitoring of Diabetes Age (y) Therapeutic Goal (%) Adults: >18 <7.0 Pediatrics: 13-18 <7.5 7-12 <8.0 0- 6 7.5-8.5 [place]. Diabetes Care 33(S1), Jul 2009. Assessment/Plan Problem List Items Addressed This Visit Irritable bowel syndrome with diarrhea Relevant Medications lactobacillus acidophilus (Acidophilus) capsule hyoscyamine (Levsin) 0.125 mg tablet Other Visit Diagnoses Hives - Primary Relevant Medications dexAMETHasone (Decadron) injection 4 mg (Start on 08/12/2024 5:00 PM) predniSONE (Deltasone) 10 mg tablet Colitis Relevant Medications lactobacillus acidophilus (Acidophilus) capsule hyoscyamine (Levsin) 0.125 mg tablet HAS GINA WITH GI THIS WEEK FU PRN documented in this encounter [facility] Work Phone: 08-06-2024 History of Present illness Narrative 19 y.o. female patient presents for evaluation of sinus pressure. Patient reports 2-3 weeks of progressively worsening maxillary sinus pain, nasal congestion, and headache. There is reported mild postnasal drip and ear pressure. States she has had some nausea the past few days also but she has a history of colitis and this is not uncommon for her. No fever, cough, melena, hematochezia, abdominal pain, rashes, fatigue, body aches or other constitutional signs and symptoms. Symptoms have been refractory to [id number] medications. Vitals: 08/06/24 1534 BP: 104/67 Pulse: 88 Resp: 14 Temp: 37 C (98.6 F) SpO2: 99% No Known Allergies Medication Documentation Review Audit Reviewed by Silas Foreman MA (Button Broacher) on 08/06/24 at 1533 Medication Order Taking? Sig Documenting Provider Last Dose Status budesonide EC (Entocort EC) 3 mg 24 hr capsule [id number] Yes Take 3 capsules (9 mg) by mouth once daily. Brendan Carrillo MD Active esomeprazole (NexIUM) [address] capsule [id number] Yes Take 1 capsule (40 mg) by mouth once daily in the morning. Take before meals. Brendan Carrillo MD Active FLUoxetine (PROzac) 20 mg capsule [id number] Yes Take 1 capsule (20 mg) by mouth once daily. Brendan Carrillo MD Active hyoscyamine (Levsin) 0.125 mg tablet [id number] Take 1 tablet (0.125 mg) by mouth 4 times a day as needed for cramping or diarrhea for up to 10 days. Brendan Carrillo MD 06/22/24 5873 lactobacillus acidophilus (Acidophilus) capsule [id number] Yes Take 2 capsules by mouth once daily. Brendan Carrillo MD Active levonorgestreL (Kyleena) 17.5 mcg/24 hrs (5 yrs) 19.5 mg intrauterine device [id number] Yes by intrauterine route. Historical Provider, 05/08/2024 Active Past Medical History: Diagnosis Date Acute right ankle pain 03/13/2023 Anxiety Deep dyspareunia in female 03/13/2023 Depression GERD (gastroesophageal reflux disease) Headache 03/13/2023 Other conditions influencing health status Menstruation Pelvic pain in female 03/13/2023 Presence of (intrauterine) contraceptive device IUD (intrauterine device) in place Sore throat 03/13/2023 Past Surgical History: Procedure Laterality Date ESOPHAGOGASTRODUODENOSCOPY 2021 INTRAUTERINE DEVICE INSERTION michaelzhanna ANDRADE See HPI Physical Exam Vitals and nursing note reviewed. Constitutional: General: She is not in acute distress. Appearance: She is ill-appearing (mildly). She is not toxic-appearing or diaphoretic. HENT: Head: Normocephalic and atraumatic. Right Ear: Tympanic membrane and ear canal normal. Left Ear: Tympanic membrane and ear canal normal. Nose: Congestion present. Right Sinus: Maxillary sinus tenderness present. Left Sinus: Maxillary sinus tenderness present. Mouth/Throat: Mouth: Mucous membranes are moist. Pharynx: Oropharynx is clear. Eyes: Extraocular Movements: Extraocular movements intact. Conjunctiva/sclera: Conjunctivae normal. Pupils: Pupils are equal, round, and reactive to light. Cardiovascular: Rate and Rhythm: Normal rate and regular rhythm. Pulmonary: Effort: Pulmonary effort is normal. Breath sounds: Normal breath sounds. Lymphadenopathy: Cervical: No cervical adenopathy. Skin: General: Skin is warm and dry. Neurological: General: No focal deficit present. Mental Status: She is alert and oriented to person, place, and time. Psychiatric: Mood and Affect: Mood normal. Behavior: Behavior normal. Assessment/Plan/MDM Nathalie was seen today for flu symptoms and vomiting. Diagnoses and all orders for this visit: Acute non-recurrent maxillary sinusitis (Primary) - amoxicillin (Amoxil) 875 mg tablet; Take 1 tablet (875 mg) by mouth 2 times a day for 10 days. - ondansetron ODT (Zofran-ODT) 4 mg disintegrating tablet; Dissolve 1 tablet (4 mg) in the mouth every 8 hours if needed for nausea or vomiting for up to 7 days. Encouraged pt to use otc cold remedies PRN, push PO fluids and rest. Patient's clinical presentation is otherwise unremarkable at this time. Patient is discharged with instructions to follow-up with primary care or seek emergency medical attention for worsening symptoms or any new concerns. I did personally review Nathalie's past medical history, surgical history, social history, as well as family history (when relevant). In this case, I also oversaw the her drug management by reviewing her medication list, allergy list, as well as the medications that I prescribed during the UC course and/or recommended as an out-patient (including possible OTC medications such as acetaminophen, NSAIDs , etc). After reviewing the items above, I did look at previous medical documentation, such as recent hospitalizations, office visits, and/or recent consultations with PCP/specialist. SDOH: Another factor that I considered in Nathalie's care was her Social Determinants of Health (SDOH). During this UC encounter, she did not have social determinants of health. Those SDOH influencing Nathalie's care are: none Robbie Olivera CNP [facility] [phone] documented in this encounter [facility] Work Phone: 06-12-2024 History of Present illness Narrative Subjective Patient ID: Nathalie Lundberg is a 19 y.o. female who presents for Follow-up (Discuss meds not helping much with her symptoms). Abdominal cramps, diarrhea Nausea vomiting last week, got better over time , has off and on good days and bad days Worse after eating , dairy makes it worse, caffeinenated beverages( pt avoids them( Review of Systems Constitutional: Negative. Negative for chills and fever. HENT: Negative. Negative for congestion. Eyes: Negative. Negative for discharge. Respiratory: Negative. Negative for cough, shortness of breath and wheezing. Cardiovascular: Negative. Negative for chest pain, palpitations and leg swelling. Gastrointestinal: Positive for abdominal pain, diarrhea, nausea and vomiting. Negative for abdominal distention and constipation. Endocrine: Negative. Genitourinary: Negative. Negative for dysuria and urgency. Musculoskeletal: Negative. Negative for back pain, joint swelling and neck stiffness. Skin: Negative. Negative for rash. Allergic/Immunologic: Negative. Negative for immunocompromised state. Neurological: Negative. Negative for light-headedness, numbness and headaches. Hematological: Negative. Negative for adenopathy. Psychiatric/Behavioral: Negative. Negative for agitation, behavioral problems and confusion. All other systems reviewed and are negative. Objective Physical Exam Vitals reviewed. Constitutional: General: She is not in acute distress. Appearance: Normal appearance. HENT: Head: Normocephalic and atraumatic. Nose: Nose normal. Eyes: Conjunctiva/sclera: Conjunctivae normal. Pupils: Pupils are equal, round, and reactive to light. Neck: Vascular: No carotid bruit. Cardiovascular: Rate and Rhythm: Normal rate and regular rhythm. Pulses: Normal pulses. Heart sounds: No gallop. Pulmonary: Effort: Pulmonary effort is normal. No respiratory distress. Breath sounds: Normal breath sounds. No wheezing. Abdominal: General: Bowel sounds are normal. Palpations: Abdomen is soft. Tenderness: There is abdominal tenderness (slight LLQ). Musculoskeletal: General: Normal range of motion. Cervical back: Normal range of motion. No rigidity. Lymphadenopathy: Cervical: No cervical adenopathy. Skin: General: Skin is warm. Findings: No rash. Neurological: General: No focal deficit present. Mental Status: She is alert and oriented to person, place, and time. Psychiatric: Mood and Affect: Mood normal. Behavior: Behavior normal. BP 110/65 (BP Location: Right arm, Patient Position: Sitting) Pulse 76 Ht 1.651 m (5' 5) Wt 60.3 kg (133 lb) BMI 22.13 kg/m Hemoglobin A1C Date/Time Value Ref Range Status 02/11/2021 09:45 AM 4.7 % Final Comment: Diagnosis of Diabetes-Adults Non-Diabetic: < or = 5.6% Increased risk for developing diabetes: 5.7-6.4% Diagnostic of diabetes: > or = 6.5% . Monitoring of Diabetes Age (y) Therapeutic Goal (%) Adults: >18 <7.0 Pediatrics: 13-18 <7.5 7-12 <8.0 0- 6 7.5-8.5 [place]. Diabetes Care 33(S1), Jul 2009. Assessment/Plan Problem List Items Addressed This Visit Irritable bowel syndrome with diarrhea Relevant Medications hyoscyamine (Levsin) 0.125 mg tablet lactobacillus acidophilus (Acidophilus) capsule Other Visit Diagnoses Colitis - Primary Relevant Medications budesonide EC (Entocort EC) 3 mg 24 hr capsule hyoscyamine (Levsin) 0.125 mg tablet lactobacillus acidophilus (Acidophilus) capsule Other Relevant Orders C. difficile, PCR Increase fluid Fu 2 mo/ entocort documented in this encounter [facility] Work Phone: 06-11-2024 Note IUD Removal Procedur e Note Type of IUD: Kyleena Date of insertion: known Reason for removal: Device expiration Other relevant history/information: none Procedure Time Out Documentation Procedures Procedure Details IUD strings visible: yes Local anesthesia: None Tenaculum used: None Removal: IUD strings grasped and IUD removed intact with gentle traction. The patient tolerated the procedure well. IUD Insertion Procedure Note Pre-operative Diagnosis: desires for fpc reversible contraception Post-operative Diagnosis: same Indications: contraception Procedures Procedure Details Urine test was not done. The risks (including infection, bleeding, pain, and uterine perforation) and benefits of the procedure were explained to the patient and Verbal informed consent was obtained. Cervix cleansed with Betadine. Uterus sounded to 8 cm. IUD inserted without difficulty. String visible and trimmed. Patient tolerated procedure well. IUD Information: Lot # [id number], Expiration date 03/24, Dara . Condition: Stable Complications: None Plan: The patient was advised to call for any fever or for prolonged or severe pain or bleeding. Toradol given in office today. She was advised to use OTC acetaminophen and OTC ibuprofen as needed for mild to moderate pain. Javan Iraheta MD Obstetrics and Gynecology [facility] [address] [place] [id number] AUTHENTICATED BY JAVAN IRAHETA, ON 06/12/2024 08:42:35 [facility] 06-11-2024 History of Present illness Narrative IUD Removal Procedure Note Type of IUD: Kyleena Date of insertion: known Reason for removal: Device expiration Other relevant history/information: none Procedure Time Out Documentation Procedures Procedure Details IUD strings visible: yes Local anesthesia: None Tenaculum used: None Removal: IUD strings grasped and IUD removed intact with gentle traction. The patient tolerated the procedure well. 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 The risks (including infection, bleeding, pain, and uterine perforation) and benefits of the procedure were explained to the patient and Verbal informed consent was obtained. Cervix cleansed with Betadine. Uterus sounded to 8 cm. IUD inserted without difficulty. String visible and trimmed. Patient tolerated procedure well. IUD Information: Lot # [id number], Expiration date 03/24, Dara . Condition: Stable Complications: None Plan: The patient was advised to call for any fever or for prolonged or severe pain or bleeding. Toradol given in office today. She was advised to use OTC acetaminophen and OTC ibuprofen as needed for mild to moderate pain. Javan Iraheta MD Obstetrics and Gynecology [facility] [address] [place] [address] documented in this encounter [facility] 05-15-2024 History of Present illness Narrative Subjective Patient ID: Nathalie Lundberg is a 19 y.o. female who presents for Follow-up (1 mo fu colon). Here for fu after scope Feels better Constipation resolved Nausea is better, although gets it off and on Needs refill on med Review of Systems Constitutional: Negative. Negative for chills and fever. HENT: Negative. Negative for congestion. Eyes: Negative. Negative for discharge. Respiratory: Negative. Negative for cough, shortness of breath and wheezing. Cardiovascular: Negative. Negative for chest pain, palpitations and leg swelling. Gastrointestinal: Negative. Negative for abdominal distention, abdominal pain, constipation, diarrhea, nausea and vomiting. Endocrine: Negative. Genitourinary: Negative. Negative for dysuria and urgency. Musculoskeletal: Negative. Negative for back pain, joint swelling and neck stiffness. Skin: Negative. Negative for rash. Allergic/Immunologic: Negative. Negative for immunocompromised state. Neurological: Negative. Negative for light-headedness, numbness and headaches. Hematological: Negative. Negative for adenopathy. Psychiatric/Behavioral: Negative. Negative for agitation, behavioral problems and confusion. All other systems reviewed and are negative. Objective Physical Exam Vitals reviewed. Constitutional: General: She is not in acute distress. Appearance: Normal appearance. HENT: Head: Normocephalic and atraumatic. Nose: Nose normal. Eyes: Conjunctiva/sclera: Conjunctivae normal. Pupils: Pupils are equal, round, and reactive to light. Neck: Vascular: No carotid bruit. Cardiovascular: Rate and Rhythm: Normal rate and regular rhythm. Pulses: Normal pulses. Heart sounds: No gallop. Pulmonary: Effort: Pulmonary effort is normal. No respiratory distress. Breath sounds: Normal breath sounds. No wheezing. Abdominal: General: Bowel sounds are normal. Palpations: Abdomen is soft. Tenderness: There is no abdominal tenderness. Musculoskeletal: General: Normal range of motion. Cervical back: Normal range of motion. No rigidity. Lymphadenopathy: Cervical: No cervical adenopathy. Skin: General: Skin is warm. Findings: No rash. Neurological: General: No focal deficit present. Mental Status: She is alert and oriented to person, place, and time. Psychiatric: Mood and Affect: Mood normal. Behavior: Behavior normal. BP 126/77 (BP Location: Right arm, Patient Position: Sitting) Pulse 87 Ht 1.651 m (5' 5) Wt 60.8 kg (134 lb) LMP 04/24/2024 (Approximate) BMI 22.30 kg/m Hemoglobin A1C Date/Time Value Ref Range Status 02/11/2021 09:45 AM 4.7 % Final Comment: Diagnosis of Diabetes-Adults Non-Diabetic: < or = 5.6% Increased risk for developing diabetes: 5.7-6.4% Diagnostic of diabetes: > or = 6.5% . Monitoring of Diabetes Age (y) Therapeutic Goal (%) Adults: >18 <7.0 Pediatrics: 13-18 <7.5 7-12 <8.0 0- 6 7.5-8.5 [employer]. Diabetes Care 33(S1), Jul 2009. Assessment/Plan Problem List Items Addressed This Visit GERD (gastroesophageal reflux disease) Relevant Medications esomeprazole (NexIUM) [address] capsule Mild depression Relevant Medications FLUoxetine (PROzac) 20 mg capsule Irritable bowel syndrome with diarrhea - Primary Relevant Medications hyoscyamine (Levsin) 0.125 mg tablet lactobacillus acidophilus (Acidophilus) capsule Other Visit Diagnoses Colitis Clinically doing fine More protein Path pending Call me next week for report Fu 6 mo documented in this encounter [facility] Work Phone: 05-08-2024 Hospital Note Formatting of t his note might be different from the original. Pre-discharge status, Pt was seen before discharge. He/she is easily arousable, and when aroused is able to respond appropriately for his/her age. Oxygen saturation is at 92% or above on room air/ordered oxygen treatment or at pre-sedation levels Blood pressure, respiratory rate, and heart rate are within +/- 20% of the patient's pre-procedure range or clinically stable and acceptable. Significant complications related to the procedure are absent, have been controlled, or have been evaluated( Please see Physician /nursing entries and orders if applicable) . These include: Pain. Nausea and vomiting. Vomiting is not persistent and has not occurred within 15 minutes prior to discharge Bladder distention. Voided bladder and /or no symptoms of urinary retention (e.g., bladder distention, frequent voiding in small amounts) Neurovascular status. Level of consciousness consistent with pre procedural status [facility] Work Phone: 05-08-2024 Miscellaneous Notes Pre-discharge status, Pt was seen before discharge. He/she is easily arousable, and when aroused is able to respond appropriately for his/her age. Oxygen saturation is at 92% or above on room air/ordered oxygen treatment or at pre-sedation levels Blood pressure, respiratory rate, and heart rate are within +/- 20% of the patient's pre-procedure range or clinically stable and acceptable. Significant complications related to the procedure are absent, have been controlled, or have been evaluated( Please see Physician /nursing entries and orders if applicable) . These include: Pain. Nausea and vomiting. Vomiting is not persistent and has not occurred within 15 minutes prior to discharge Bladder distention. Voided bladder and /or no symptoms of urinary retention (e.g., bladder distention, frequent voiding in small amounts) Neurovascular status. Level of consciousness consistent with pre procedural status documented in this encounter [facility] Work Phone: 05-08-2024 History and physical note Pre procedure H&P Pt feels fine , no complaint General appearance: Comfortable, no distress ROS: No SOB Medications reviewed Head: Normal Neck: Soft Heart: Regular Lungs: Clear Abdomen: soft Impression: clinically doing fine, proceed with procedure Problem List Items Addressed This Visit Irritable bowel syndrome with diarrhea Relevant Orders Colonoscopy Diagnostic Other Visit Diagnoses Nausea Relevant Orders Colonoscopy Diagnostic Constipation, unspecified constipation type Relevant Orders Colonoscopy Diagnostic [facility] Work Phone: 05-08-2024 History and physical note Pre procedure H&P Pt feels fine , no complaint General appearance: Comfortable, no distress ROS: No SOB Medications reviewed Head: Normal Neck: Soft Heart: Regular Lungs: Clear Abdomen: soft Impression: clinically doing fine, proceed with procedure Problem List Items Addressed This Visit Irritable bowel syndrome with diarrhea Relevant Orders Colonoscopy Diagnostic Other Visit Diagnoses Nausea Relevant Orders Colonoscopy Diagnostic Constipation, unspecified constipation type Relevant Orders Colonoscopy Diagnostic documented in this encounter [facility] Work Phone: 03-25-2024 History of Present illness Narrative Subjective Patient ID: Nathalie Lundberg is a 18 y.o. female who presents for Follow-up (Fu ct scan). Here for fu after CT Feels very good last 2 days Pt does not feels constipated no abdominal pain Reports BM on daily bases Still gets nauseated on daily bases Review of Systems Constitutional: Negative. Negative for chills and fever. HENT: Negative. Negative for congestion. Eyes: Negative. Negative for discharge. Respiratory: Negative. Negative for cough, shortness of breath and wheezing. Cardiovascular: Negative. Negative for chest pain, palpitations and leg swelling. Gastrointestinal: Negative. Negative for abdominal distention, abdominal pain, constipation, diarrhea, nausea and vomiting. Endocrine: Negative. Genitourinary: Negative. Negative for dysuria and urgency. Musculoskeletal: Negative. Negative for back pain, joint swelling and neck stiffness. Skin: Negative. Negative for rash. Allergic/Immunologic: Negative. Negative for immunocompromised state. Neurological: Negative. Negative for light-headedness, numbness and headaches. Hematological: Negative. Negative for adenopathy. Psychiatric/Behavioral: Negative. Negative for agitation, behavioral problems and confusion. All other systems reviewed and are negative. Objective Physical Exam Vitals reviewed. Constitutional: General: She is not in acute distress. Appearance: Normal appearance. HENT: Head: Normocephalic and atraumatic. Nose: Nose normal. Eyes: Conjunctiva/sclera: Conjunctivae normal. Pupils: Pupils are equal, round, and reactive to light. Neck: Vascular: No carotid bruit. Cardiovascular: Rate and Rhythm: Normal rate and regular rhythm. Pulses: Normal pulses. Heart sounds: No gallop. Pulmonary: Effort: Pulmonary effort is normal. No respiratory distress. Breath sounds: Normal breath sounds. No wheezing. Abdominal: General: Bowel sounds are normal. Palpations: Abdomen is soft. Tenderness: There is no abdominal tenderness. Musculoskeletal: General: Normal range of motion. Cervical back: Normal range of motion. No rigidity. Lymphadenopathy: Cervical: No cervical adenopathy. Skin: General: Skin is warm. Findings: No rash. Neurological: General: No focal deficit present. Mental Status: She is alert and oriented to person, place, and time. Psychiatric: Mood and Affect: Mood normal. Behavior: Behavior normal. BP 97/59 (BP Location: Right arm, Patient Position: Sitting) Pulse 70 Ht 1.651 m (5' 5) Wt 60.8 kg (134 lb) BMI 22.30 kg/m Hemoglobin A1C Date/Time Value Ref Range Status 02/11/2021 09:45 AM 4.7 % Final Comment: Diagnosis of Diabetes-Adults Non-Diabetic: < or = 5.6% Increased risk for developing diabetes: 5.7-6.4% Diagnostic of diabetes: > or = 6.5% . Monitoring of Diabetes Age (y) Therapeutic Goal (%) Adults: >18 <7.0 Pediatrics: 13-18 <7.5 7-12 <8.0 0- 6 7.5-8.5 [employer]. Diabetes Care 33(S1), Jul 2009. Assessment/Plan Problem List Items Addressed This Visit Irritable bowel syndrome with diarrhea Relevant Orders Colonoscopy Diagnostic Other Visit Diagnoses Nausea - Primary Relevant Orders Colonoscopy Diagnostic Esophagogastroduodenoscopy (EGD) Constipation, unspecified constipation type Relevant Medications polyethylene glycol (Glycolax, Miralax) 17 gram packet Other Relevant Orders Colonoscopy Diagnostic Labs reviewed with pt More protein CT dw pt High fiber diet Increase fluid Fu 1 mo scopes documented in this encounter [facility] Work Phone: 03-12-2024 History of Present illness Narrative Subjective Patient ID: Nathalie Lundberg is a 18 y.o. female who presents for Follow-up ([address] NOT SCHEDULED UNTIL THE ). Here for fu No tests doen yet STILL HAS SAME SYMPTOMS FINISHED FLAGL AND CIPRO STILL TAKE NEXIUM Review of Systems Constitutional: Negative. Negative for chills and fever. HENT: Negative. Negative for congestion. Eyes: Negative. Negative for discharge. Respiratory: Negative. Negative for cough, shortness of breath and wheezing. Cardiovascular: Negative. Negative for chest pain, palpitations and leg swelling. Gastrointestinal: Positive for abdominal pain, diarrhea, nausea and vomiting. Negative for abdominal distention and constipation. Endocrine: Negative. Genitourinary: Negative. Negative for dysuria and urgency. Musculoskeletal: Negative. Negative for back pain, joint swelling and neck stiffness. Skin: Negative. Negative for rash. Allergic/Immunologic: Negative. Negative for immunocompromised state. Neurological: Negative. Negative for light-headedness, numbness and headaches. Hematological: Negative. Negative for adenopathy. Psychiatric/Behavioral: Negative. Negative for agitation, behavioral problems and confusion. All other systems reviewed and are negative. Objective Physical Exam Vitals reviewed. Constitutional: General: She is not in acute distress. Appearance: Normal appearance. HENT: Head: Normocephalic and atraumatic. Nose: Nose normal. Eyes: Conjunctiva/sclera: Conjunctivae normal. Pupils: Pupils are equal, round, and reactive to light. Neck: Vascular: No carotid bruit. Cardiovascular: Rate and Rhythm: Normal rate and regular rhythm. Pulses: Normal pulses. Heart sounds: No gallop. Pulmonary: Effort: Pulmonary effort is normal. No respiratory distress. Breath sounds: Normal breath sounds. No wheezing. Abdominal: General: Bowel sounds are normal. Palpations: Abdomen is soft. Tenderness: There is abdominal tenderness (MILD LOWER [ART). Musculoskeletal: General: Normal range of motion. Cervical back: Normal range of motion. No rigidity. Lymphadenopathy: Cervical: No cervical adenopathy. Skin: General: Skin is warm. Findings: No rash. Neurological: General: No focal deficit present. Mental Status: She is alert and oriented to person, place, and time. Psychiatric: Mood and Affect: Mood normal. Behavior: Behavior normal. BP 112/74 (BP Location: Left arm, Patient Position: Sitting) Pulse 64 Ht 1.651 m (5' 5) Wt 63 kg (139 lb) BMI 23.13 kg/m Hemoglobin A1C Date/Time Value Ref Range Status 02/11/2021 09:45 AM 4.7 % Final Comment: Diagnosis of Diabetes-Adults Non-Diabetic: < or = 5.6% Increased risk for developing diabetes: 5.7-6.4% Diagnostic of diabetes: > or = 6.5% . Monitoring of Diabetes Age (y) Therapeutic Goal (%) Adults: >18 <7.0 Pediatrics: 13-18 <7.5 7-12 <8.0 0- 6 7.5-8.5 [employer]. Diabetes Care 33(S1), Jul 2009. Assessment/Plan Problem List Items Addressed This Visit Irritable bowel syndrome with diarrhea - Primary Relevant Medications ondansetron (Zofran) 4 mg tablet hyoscyamine (Levsin) 0.125 mg tablet Other Visit Diagnoses Colitis Relevant Medications ondansetron (Zofran) 4 mg tablet hyoscyamine (Levsin) 0.125 mg tablet TO HAVE BW STOOL TEST ct FU 10 DAYS IF WORSE GO TO ER documented in this encounter [facility] Work Phone: 01-23-2024 History of Present illness Narrative No scheduling info at check out. Patient will call back in to schedule her yearly. Images from the original note were not included. Subjective Patient ID: Nathalie Lundberg is a 18 y.o. female. Patient here for routine follow-up Has not been seen in quite some time she did start seeing primary care with because of her stomach issues states that he prescribed a couple of medications she thinks 1 is Nexium cannot recall what the other is she states she thinks that they did help she did get her EGD performed but never went for her follow-up visit to discuss States that at times she gets flareups of nausea feeling queasy has not been taking medications routinely with this wondered about potential antinausea treatments She does continue with her fluoxetine for her anxiety and thinks that that is helping The following portions of the patient's history were reviewed and updated as appropriate: allergies, current medications, past family history, past medical history, past social history, past surgical history, and problem list. Review of Systems Constitutional: Negative for chills, diaphoresis and fever. HENT: Negative for congestion and sinus pain. Eyes: Negative for redness. Respiratory: Negative for cough, shortness of breath and wheezing. Cardiovascular: Negative for chest pain. Gastrointestinal: Positive for abdominal pain and nausea. Negative for diarrhea and vomiting. Endocrine: Negative for polydipsia. Genitourinary: Negative for frequency and hematuria. Musculoskeletal: Negative for back pain. Neurological: Negative for weakness and headaches. Psychiatric/Behavioral: Negative for confusion. Objective Physical Exam Vitals reviewed. Constitutional: General: She is not in acute distress. Appearance: Normal appearance. HENT: Head: Normocephalic and atraumatic. Right Ear: Tympanic membrane and ear canal normal. Left Ear: Tympanic membrane and ear canal normal. Nose: No congestion or rhinorrhea. Eyes: Extraocular Movements: Extraocular movements intact. Conjunctiva/sclera: Conjunctivae normal. Pupils: Pupils are equal, round, and reactive to light. Cardiovascular: Rate and Rhythm: Normal rate and regular rhythm. Heart sounds: Normal heart sounds. No murmur heard. No friction rub. No gallop. Pulmonary: Effort: No respiratory distress. Breath sounds: Normal breath sounds. No wheezing, rhonchi or rales. Musculoskeletal: Cervical back: Neck supple. No rigidity. Skin: Findings: No rash. Neurological: Mental Status: She is alert. Motor: No weakness. Gait: Gait normal. Psychiatric: Mood and Affect: Mood normal. Assessment/Plan: Diagnoses and all orders for this visit: General medical exam No lab work needed discussed with patient that we are happy to continue as her primary care but would either need to see us or that having to primary care doctors is not appropriate she states that she would like to continue with [facility] Gastroesophageal reflux disease without esophagitis - esomeprazole (NEXIUM) 40 MG capsule; Take 1 (one) capsule (40 mg total) by mouth every morning before breakfast . She is going to start prescription Nexium she will see what medication she has at home and if effective we may be able to call in prescription she is going to add Pepcid AC at night for the times where she has significant nausea if that does not calm down we could do a short course of Zofran follow-up with the heartburn clinic Generalized anxiety disorder - FLUoxetine (PROZAC) 20 MG capsule; Take 1 (one) capsule (20 mg total) by mouth daily . Ricky Pritchard M.D. For any new medications prescribed today, patient was educated about indications for the medication, how to take the medication and potential side effects of the medications. documented in this encounter [facility] 01-23-2024 Note Subjective Patient ID: Nathalie Lundberg is a 18 y.o. female. Patient here for routine follow-up Has not been seen in quite some time she did start seeing primary care with because of her stomach issues states that he prescribed a couple of medications she thinks 1 is Nexium cannot recall what the other is she states she thinks that they did help she did get her EGD performed but never went for her follow-up visit to discuss States that at times she gets flareups of nausea feeling queasy has not been taking medications routinely with this wondered about potential antinausea treatments She does continue with her fluoxetine for her anxiety and thinks that that is helping The following portions of the patient's history were reviewed and updated as appropriate: allergies, current medications, past family history, past medical history, past social history, past surgical history, and problem list. Review of Systems Constitutional: Negative for chills, diaphoresis and fever. HENT: Negative for congestion and sinus pain. Eyes: Negative for redness. Respiratory: Negative for cough, shortness of breath and wheezing. Cardiovascular: Negative for chest pain. Gastrointestinal: Positive for abdominal pain and nausea. Negative for diarrhea and vomiting. Endocrine: Negative for polydipsia. Genitourinary: Negative for frequency and hematuria. Musculoskeletal: Negative for back pain. Neurological: Negative for weakness and headaches. Psychiatric/Behavioral: Negative for confusion. Objective Physical Exam Vitals reviewed. Constitutional: General: She is not in acute distress. Appearance: Normal appearance. HENT: Head: Normocephalic and atraumatic. Right Ear: Tympanic membrane and ear canal normal. Left Ear: Tympanic membrane and ear canal normal. Nose: No congestion or rhinorrhea. Eyes: Extraocular Movements: Extraocular movements intact. Conjunctiva/sclera: Conjunctivae normal. Pupils: Pupils are equal, round, and reactive to light. Cardiovascular: Rate and Rhythm: Normal rate and regular rhythm. Heart sounds: Normal heart sounds. No murmur heard. No friction rub. No gallop. Pulmonary: Effort: No respiratory distress. Breath sounds: Normal breath sounds. No wheezing, rhonchi or rales. Musculoskeletal: Cervical back: Neck supple. No rigidity. Skin: Findings: No rash. Neurological: Mental Status: She is alert. Motor: No weakness. Gait: Gait normal. Psychiatric: Mood and Affect: Mood normal. Assessment/Plan: Diagnoses and all orders for this visit: General medical exam No lab work needed discussed with patient that we are happy to continue as her primary care but would either need to see us or [facility] that having to primary care doctors is not appropriate she states that she would like to continue with [facility] Gastroesophageal reflux disease without esophagitis - esomeprazole (NEXIUM) 40 MG capsule; Take 1 (one) capsule (40 mg total) by mouth every morning before breakfast . She is going to start prescription Nexium she will see what medication she has at home and if effective we may be able to call in prescription she is going to add Pepcid AC at night for the times where she has significant nausea if that does not calm down we could do a short course of Zofran follow-up with the heartburn clinic Generalized anxiety disorder - FLUoxetine (PROZAC) 20 MG capsule; Take 1 (one) capsule (20 mg total) by mouth daily . Ricky Pritchard M.D. For any new medications prescribed today, patient was educated about indications for the medication, how to take the medication and potential side effects of the medications. AUTHENTICATED BY RICKY PRITCHARD, ON 01/23/2024 15:36:12 [facility] 07-09-2023 History of Present illness Narrative Images from the original note were not included. Well woman visit Subjective Nathalie Lundberg is a 18 y.o. who presents today for her well woman visit. She does not have any specific complaints at this time and otherwise is doing well. She has irregular bleeding with the Kyleena which occurs every few months and very light. She states that she exercises 4-5 times weekly for 60 minutes of Moderate exercise. She endorses still having a poor diet but does exercise regularly. She is is sexually active and is using Kyleena for control and also using condoms consistently for STD prevention. She denies pelvic pain, foul smelling vaginal discharge, vaginal itching , dysuria. Past Medical History: Diagnosis Date Anxiety GERD (gastroesophageal reflux disease) Active Home Medications Medication Sig Take Last Dose On Take Morning of Surgery Comment(s) busPIRone (BUSPAR) 10 MG tablet Take 1 (one) tablet (10 mg total) by mouth 3 (three) times a day as needed (anxiety) . FLUoxetine (PROZAC) 20 MG capsule Take 1 (one) capsule (20 mg total) by mouth daily . levonorgestreL (KYLEENA) IUD iud 1 (one) each by Intrauterine route once . No Known Allergies Past Surgical History: Procedure Laterality Date EGD N/A 05/26/2022 Procedure: EGD W BIOPSY; Surgeon: Severino Gatica MD; Location: [facility] OR; Service: Gastroenterology Any family history of: Breast cancer: No Colon cancer: No Uterine cancer: No Ovarian cancer: No Do you use alcohol? No Do you smoke? No Do you use street drugs? No The following portions of the patient's history were reviewed and updated as appropriate: allergies, current medications, past family history, past medical history, past social history, past surgical history and problem list. Review of Systems Objective: Physical Exam BP 100/62 Pulse 87 Ht 5' 5 Wt 63.3 kg (139 lb 9.6 oz) BMI 23.23 kg/m General: Alert, well nourished, in no apparent distress HEENT: Normocephalic, atraumatic Lungs: no respiratory distress. Breast: No skin changes, no masses, no discharge, no tenderness to palpation, no axillary lymphadenopathy Abdominal: Soft, no visible masses, no skin changes : VULVA: normal appearing vulva with no masses, tenderness or lesions VAGINA: normal appearing vagina with normal color and discharge, no lesions CERVIX: normal appearing cervix without discharge or lesions. IUD string visible Discussed Body Mass Index (BMI): Nutrition counseling. Discussed Body Mass Index (BMI): Physical activity counseling. Assessment/Plan: 1. Routine Gynecological Examination - PAP non indicated - S/p HPV vaccine series - Flu vaccine today - Immunizations UTD per patient. - F/u in 1 year for annual well woman exam. -IUD to be removed next year with replacement with Dara likely Javan Iraheta MD Obstetrics and Gynecology [facility] [address] [place] [address] Javan Iraheta MD documented in this encounter [facility] 06-27-2023 History of Present illness Narrative 18 y.o. female presents for evaluation of URI. Symptoms including cough, congestion, body aches, malaise, and headache have been present for several days and refractory to OTC meds. No fever, chills, nausea, vomiting, abdominal pain, CP, or SOB. No exacerbating factors. No known COVID 19/flu exposure. Vitals: 06/27/23 1508 BP: 104/69 Pulse: 80 Resp: 16 Temp: 37 C (98.6 F) SpO2: 98% No Known Allergies Medication Documentation Review Audit Reviewed by Radha Cazares MA (Button Broacher) on 06/27/23 at 1507 Medication Order Taking? Sig Documenting Provider Last Dose Status ergocalciferol (Vitamin D-2) 1.25 MG (29921 UT) capsule [id number] Yes Take 1 capsule (50,000 Units) by mouth 1 (one) time per week. Brendan Carrillo MD Taking Active esomeprazole (NexIUM) [address] capsule [id number] Yes Take 1 capsule (20 mg) by mouth once daily in the morning. Take before meals. Do not open capsule. Roxei Medina, DIRECTOR OF INSTITUTIONAL GIVING-VIDEO GAME TESTER Taking Active FLUoxetine (PROzac) 20 mg capsule [id number] Yes Take 1 capsule (20 mg) by mouth once daily. Historical Provider, Taking Active hyoscyamine (Levsin) 0.125 mg tablet [id number] Yes Take 1 tablet (0.125 mg) by mouth 2 times a day. Brendan Carrillo MD Taking Active lactobacillus acidophilus (Acidophilus) capsule [id number] Yes Take 2 capsules by mouth once daily. Brendan Carrillo MD Taking Active levonorgestreL (Kyleena) 17.5 mcg/24 hrs (5 yrs) 19.5 mg intrauterine device [id number] Yes by intrauterine route. Historical Provider, Taking Active Past Medical History: Diagnosis Date Acute right ankle pain 03/13/2023 Deep dyspareunia in female 03/13/2023 Headache 03/13/2023 Other conditions influencing health status Menstruation Pelvic pain in female 03/13/2023 Presence of (intrauterine) contraceptive device IUD (intrauterine device) in place Sore throat 03/13/2023 Past Surgical History: Procedure Laterality Date ESOPHAGOGASTRODUODENOSCOPY 2021 INTRAUTERINE DEVICE INSERTION jacky ANDRADE See HPI Physical Exam Vitals and nursing note reviewed. Constitutional: Appearance: She is normal weight. She is ill-appearing (mildly). HENT: Head: Normocephalic and atraumatic. Right Ear: Ear canal normal. Tympanic membrane is erythematous. Left Ear: Tympanic membrane and ear canal normal. Nose: Congestion (maxillary sinus tenderness bilaterally) present. Mouth/Throat: Mouth: Mucous membranes are moist. Pharynx: Oropharynx is clear. Eyes: Extraocular Movements: Extraocular movements intact. Conjunctiva/sclera: Conjunctivae normal. Pupils: Pupils are equal, round, and reactive to light. Cardiovascular: Rate and Rhythm: Normal rate and regular rhythm. Pulmonary: Effort: Pulmonary effort is normal. Breath sounds: Normal breath sounds. Lymphadenopathy: Cervical: No cervical adenopathy. Skin: General: Skin is warm and dry. Capillary Refill: Capillary refill takes less than 2 seconds. Neurological: General: No focal deficit present. Mental Status: She is alert and oriented to person, place, and time. Psychiatric: Mood and Affect: Mood normal. Behavior: Behavior normal. Assessment/Plan/MDM Nathalie was seen today for uri. Diagnoses and all orders for this visit: Acute upper respiratory infection (Primary) - predniSONE (Deltasone) 20 mg tablet; Take 1 tablet (20 mg) by mouth once daily for 5 days. Start tomorrow Non-recurrent acute serous otitis media of right ear - azithromycin (Zithromax Z-Charles) 250 mg tablet; Take 2 tablets (500 mg) on Day 1, followed by 1 tablet (250 mg) once daily on Days 2 through 5. Encouraged pt to continue otc cold remedies PRN, push by mouth fluids and rest. Patient's clinical presentation is otherwise unremarkable at this time. Patient is discharged with instructions to follow-up with primary care or seek emergency medical attention for worsening symptoms or any new concerns. Robbie Olivera CNP [facility] [phone] documented in this encounter [facility] Work Phone: 05-10-2023 History of Present illness Narrative Subjective Patient ID: Nathalie Lundberg is a 18 y.o. female who presents for Follow-up (Fu hida scan ). Here for fu after test Review of Systems Constitutional: Negative. Negative for chills and fever. HENT: Negative. Negative for congestion. Eyes: Negative. Negative for discharge. Respiratory: Negative. Negative for cough, shortness of breath and wheezing. Cardiovascular: Negative. Negative for chest pain, palpitations and leg swelling. Gastrointestinal: Positive for abdominal pain and diarrhea. Negative for abdominal distention, constipation, nausea and vomiting. Endocrine: Negative. Genitourinary: Negative. Negative for dysuria and urgency. Musculoskeletal: Negative. Negative for back pain, joint swelling and neck stiffness. Skin: Negative. Negative for rash. Allergic/Immunologic: Negative. Negative for immunocompromised state. Neurological: Negative. Negative for light-headedness, numbness and headaches. Hematological: Negative. Negative for adenopathy. Psychiatric/Behavioral: Negative. Negative for agitation, behavioral problems and confusion. All other systems reviewed and are negative. Objective Physical Exam Vitals reviewed. Constitutional: General: She is not in acute distress. Appearance: Normal appearance. HENT: Head: Normocephalic and atraumatic. Nose: Nose normal. Eyes: Conjunctiva/sclera: Conjunctivae normal. Pupils: Pupils are equal, round, and reactive to light. Neck: Vascular: No carotid bruit. Cardiovascular: Rate and Rhythm: Normal rate and regular rhythm. Pulses: Normal pulses. Heart sounds: No gallop. Pulmonary: Effort: Pulmonary effort is normal. No respiratory distress. Breath sounds: Normal breath sounds. No wheezing. Abdominal: General: Bowel sounds are normal. Palpations: Abdomen is soft. Tenderness: There is abdominal tenderness (epigastric mild). Musculoskeletal: General: Normal range of motion. Cervical back: Normal range of motion. No rigidity. Lymphadenopathy: Cervical: No cervical adenopathy. Skin: General: Skin is warm. Findings: No rash. Neurological: General: No focal deficit present. Mental Status: She is alert and oriented to person, place, and time. Psychiatric: Mood and Affect: Mood normal. Behavior: Behavior normal. BP 120/71 (BP Location: Right arm, Patient Position: Sitting) Pulse 76 Ht 1.676 m (5' 6) Wt 63.5 kg (140 lb) BMI 22.60 kg/m Hemoglobin A1C Date/Time Value Ref Range Status 02/11/2021 09:45 AM 4.7 % Final Comment: Diagnosis of Diabetes-Adults Non-Diabetic: < or = 5.6% Increased risk for developing diabetes: 5.7-6.4% Diagnostic of diabetes: > or = 6.5% . Monitoring of Diabetes Age (y) Therapeutic Goal (%) Adults: >18 <7.0 Pediatrics: 13-18 <7.5 7-12 <8.0 0- 6 7.5-8.5 [place]. Diabetes Care 33(S1), Jul 2009. Assessment/Plan Problem List Items Addressed This Visit Irritable bowel syndrome with diarrhea Relevant Medications lactobacillus acidophilus (Acidophilus) capsule Other Relevant Orders Colonoscopy Diagnostic Other Visit Diagnoses Postprandial epigastric pain - Primary Relevant Medications hyoscyamine (Levsin) 0.125 mg tablet Other Relevant Orders Colonoscopy Diagnostic Hida normal MDM 1) COMPLEXITY: 1 OR MORE CHRONIC CONDITION WITH EXACERBATION, OR PROGRESSION OR SIDE EFFECT OF TREATMENT ADDRESSED 2)DATA: TESTS INTERPRETED AND OR ORDERED, TOOK INDEPENDENT HISTORY OR RECORDS REVIEWED 3)RISK: MODERATE RISK DUE TO NATURE OF MEDICAL CONDITIONS/COMORBIDITY OR MEDICATIONS ORDERED OR SURGICAL OR PROCEDURE REFERRAL, . documented in this encounter [facility] Work Phone: 04-10-2023 History of Present illness Narrative Subjective Patient ID: Nathalie Lundberg is a 18 y.o. female who presents for Follow-up (FU LABS AND US). HERE FOR FU AFTER TEST CO FATIGUE STILL GETS NAUSEATED AFTER EATING HAS HAD UPPER ENDOSCOPY HAS TRIED OMEPRAZOLE NO HELP GETS EPIGASTRIC PAIN AND BOATING AFTER EATING Review of Systems Constitutional: Negative. Negative for chills and fever. HENT: Negative. Negative for congestion. Eyes: Negative. Negative for discharge. Respiratory: Negative. Negative for cough, shortness of breath and wheezing. Cardiovascular: Negative. Negative for chest pain, palpitations and leg swelling. Gastrointestinal: Positive for abdominal pain, diarrhea and nausea. Negative for abdominal distention, constipation and vomiting. Endocrine: Negative. Genitourinary: Negative. Negative for dysuria and urgency. Musculoskeletal: Negative. Negative for back pain, joint swelling and neck stiffness. Skin: Negative. Negative for rash. Allergic/Immunologic: Negative. Negative for immunocompromised state. Neurological: Negative. Negative for light-headedness, numbness and headaches. Hematological: Negative. Negative for adenopathy. Psychiatric/Behavioral: Negative. Negative for agitation, behavioral problems and confusion. All other systems reviewed and are negative. Objective Physical Exam Vitals reviewed. Constitutional: General: She is not in acute distress. Appearance: Normal appearance. HENT: Head: Normocephalic and atraumatic. Nose: Nose normal. Eyes: Conjunctiva/sclera: Conjunctivae normal. Pupils: Pupils are equal, round, and reactive to light. Neck: Vascular: No carotid bruit. Cardiovascular: Rate and Rhythm: Normal rate and regular rhythm. Pulses: Normal pulses. Heart sounds: No gallop. Pulmonary: Effort: Pulmonary effort is normal. No respiratory distress. Breath sounds: Normal breath sounds. No wheezing. Abdominal: General: Bowel sounds are normal. Palpations: Abdomen is soft. Tenderness: There is no abdominal tenderness. Musculoskeletal: General: Normal range of motion. Cervical back: Normal range of motion. No rigidity. Lymphadenopathy: Cervical: No cervical adenopathy. Skin: General: Skin is warm. Findings: No rash. Neurological: General: No focal deficit present. Mental Status: She is alert and oriented to person, place, and time. Psychiatric: Mood and Affect: Mood normal. Behavior: Behavior normal. BP 109/68 (BP Location: Right arm, Patient Position: Sitting) Pulse 68 Ht 1.676 m (5' 6) Wt 66.7 kg (147 lb) BMI 23.73 kg/m Hemoglobin A1C Date/Time Value Ref Range Status 02/11/2021 09:45 AM 4.7 % Final Comment: Diagnosis of Diabetes-Adults Non-Diabetic: < or = 5.6% Increased risk for developing diabetes: 5.7-6.4% Diagnostic of diabetes: > or = 6.5% . Monitoring of Diabetes Age (y) Therapeutic Goal (%) Adults: >18 <7.0 Pediatrics: 13-18 <7.5 7-12 <8.0 0- 6 7.5-8.5 [place] [employer]. Diabetes Care 33(S1), Jul 2009. Assessment/Plan Problem List Items Addressed This Visit None Visit Diagnoses Postprandial epigastric pain - Primary Relevant Medications hyoscyamine (Levsin) 0.125 mg tablet esomeprazole (NexIUM) [address] capsule Other Relevant Orders NM hepatobiliary Vitamin D deficiency Relevant Medications ergocalciferol (Vitamin D-2) 1.25 MG (89064 UT) capsule Labs reviewed with pt FU 1 WEEK IF NOT BETTER EGD COLONOSCOPY MDM 1) COMPLEXITY: 1 OR MORE CHRONIC CONDITION WITH EXACERBATION, OR PROGRESSION OR SIDE EFFECT OF TREATMENT ADDRESSED 2)DATA: TESTS INTERPRETED AND OR ORDERED, TOOK INDEPENDENT HISTORY OR RECORDS REVIEWED 3)RISK: MODERATE RISK DUE TO NATURE OF MEDICAL CONDITIONS/COMORBIDITY OR MEDICATIONS ORDERED OR SURGICAL OR PROCEDURE REFERRAL, . documented in this encounter [facility] Work Phone: 03-19-2023 History of Present illness Narrative Subjective Patient ID: Nathalie Lundberg is a 17 y.o. female who presents for Follow-up (New patient visit). Co GERD for years Had EGD last year Gets nausea and acid reflux on a daily bases Been on omeprazol pepcid and other antiacid they did not help Any food can bring it up Has been having diarrhea on a daily bases, some times with cramps, some times bloating Co fatigue and tired Review of Systems Constitutional: Negative. Negative for chills and fever. HENT: Negative. Negative for congestion. Eyes: Negative. Negative for discharge. Respiratory: Negative. Negative for cough, shortness of breath and wheezing. Cardiovascular: Negative. Negative for chest pain, palpitations and leg swelling. Gastrointestinal: Positive for nausea. Negative for abdominal distention, abdominal pain, constipation, diarrhea and vomiting. Endocrine: Negative. Genitourinary: Negative. Negative for dysuria and urgency. Musculoskeletal: Negative. Negative for back pain, joint swelling and neck stiffness. Skin: Negative. Negative for rash. Allergic/Immunologic: Negative. Negative for immunocompromised state. Neurological: Negative. Negative for light-headedness, numbness and headaches. Hematological: Negative. Negative for adenopathy. Psychiatric/Behavioral: Negative. Negative for agitation, behavioral problems and confusion. All other systems reviewed and are negative. Objective Physical Exam Vitals reviewed. Constitutional: General: She is not in acute distress. Appearance: Normal appearance. HENT: Head: Normocephalic and atraumatic. Nose: Nose normal. Eyes: Conjunctiva/sclera: Conjunctivae normal. Pupils: Pupils are equal, round, and reactive to light. Neck: Vascular: No carotid bruit. Cardiovascular: Rate and Rhythm: Normal rate and regular rhythm. Pulses: Normal pulses. Heart sounds: No gallop. Pulmonary: Effort: Pulmonary effort is normal. No respiratory distress. Breath sounds: Normal breath sounds. No wheezing. Abdominal: General: Bowel sounds are normal. Palpations: Abdomen is soft. Tenderness: There is no abdominal tenderness. Musculoskeletal: General: Normal range of motion. Cervical back: Normal range of motion. No rigidity. Lymphadenopathy: Cervical: No cervical adenopathy. Skin: General: Skin is warm. Findings: No rash. Neurological: General: No focal deficit present. Mental Status: She is alert and oriented to person, place, and time. Psychiatric: Mood and Affect: Mood normal. Behavior: Behavior normal. BP 100/58 (BP Location: Right arm, Patient Position: Sitting) Pulse 79 Ht 1.676 m (5' 6) Wt 63.5 kg (140 lb) BMI 22.60 kg/m Hemoglobin A1C Date/Time Value Ref Range Status 02/11/2021 09:45 AM 4.7 % Final Comment: Diagnosis of Diabetes-Adults Non-Diabetic: < or = 5.6% Increased risk for developing diabetes: 5.7-6.4% Diagnostic of diabetes: > or = 6.5% . Monitoring of Diabetes Age (y) Therapeutic Goal (%) Adults: >18 <7.0 Pediatrics: 13-18 <7.5 7-12 <8.0 0- 6 7.5-8.5 [place] [employer]. Diabetes Care 33(S1), Jul 2009. Assessment/Plan Problem List Items Addressed This Visit GERD (gastroesophageal reflux disease) - Primary Relevant Orders CBC and Auto Differential Comprehensive Metabolic Panel Irritable bowel syndrome with diarrhea Relevant Orders CBC and Auto Differential TSH with reflex to Free T4 if abnormal C. difficile, PCR Other Visit Diagnoses Lipid screening Relevant Orders Lipid Panel Fatigue, unspecified type Relevant Orders Folate Vitamin B12 Vitamin D, Total Epigastric pain Relevant Orders US gallbladder Fu 3 weeks bw MDM 1) COMPLEXITY: 1 OR MORE CHRONIC CONDITION WITH EXACERBATION, OR PROGRESSION OR SIDE EFFECT OF TREATMENT ADDRESSED 2)DATA: TESTS INTERPRETED AND OR ORDERED, TOOK INDEPENDENT HISTORY OR RECORDS REVIEWED 3)RISK: MODERATE RISK DUE TO NATURE OF MEDICAL CONDITIONS/COMORBIDITY OR MEDICATIONS ORDERED OR SURGICAL OR PROCEDURE REFERRAL, . documented in this encounter [facility] Work Phone: 11-17-2022 History of Present illness Narrative Images from the original note were not included. Subjective Patient ID: Nathalie Lundberg is a 17 y.o. female. Here for check up overall she is doing well she has recently seen her firer boiler to check on her IUD and does not change She does have anxiety medication seems to help she would like to continue taking otherwise has no concerns The following portions of the patient's history were reviewed and updated as appropriate: allergies, current medications, past family history, past medical history, past social history, past surgical history, and problem list. Review of Systems Constitutional: Negative for chills, diaphoresis and fever. HENT: Negative for congestion and sinus pain. Eyes: Negative for redness. Respiratory: Negative for cough, shortness of breath and wheezing. Cardiovascular: Negative for chest pain. Gastrointestinal: Negative for diarrhea, nausea and vomiting. Endocrine: Negative for polydipsia. Genitourinary: Negative for frequency and hematuria. Musculoskeletal: Negative for back pain. Neurological: Negative for weakness and headaches. Psychiatric/Behavioral: Negative for confusion. Objective Physical Exam Vitals reviewed. Constitutional: General: She is awake. Appearance: Normal appearance. She is well-developed. HENT: Head: Normocephalic and atraumatic. Right Ear: Tympanic membrane and ear canal normal. Left Ear: Tympanic membrane and ear canal normal. Nose: Nose normal. Eyes: General: Lids are normal. Extraocular Movements: Extraocular movements intact. Pupils: Pupils are equal, round, and reactive to light. Cardiovascular: Rate and Rhythm: Normal rate and regular rhythm. Heart sounds: S1 normal and S2 normal. No murmur heard. No friction rub. No gallop. Pulmonary: Effort: Pulmonary effort is normal. No tachypnea. Breath sounds: Normal breath sounds. No stridor or decreased air movement. No wheezing, rhonchi or rales. Neurological: Mental Status: She is alert. Gait: Gait is intact. Psychiatric: Behavior: Behavior is cooperative. Assessment/Plan: Diagnoses and all orders for this visit: General medical exam We will continue with routine follow-ups on a yearly basis Generalized anxiety disorder - FLUoxetine (PROZAC) 20 MG capsule; Take 1 (one) capsule (20 mg total) by mouth daily . Ricky Pritchard M.D. For any new medications prescribed today, patient was educated about indications for the medication, how to take the medication and potential side effects of the medications. documented in this encounter [facility] 10-24-2022 Telephone encounter Note Sent last night when received request [facility] 10-24-2022 Miscellaneous Notes Sent last night when received request documented in this encounter [facility] 07-07-2022 History of Present illness Narrative Images from the original note were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 eating healthy, being active. [place] [phone] [facility] [id number] Email: [email or web address] & Relevant Medications busPIRone (BUSPAR) 10 MG tablet escitalopram oxalate (LEXAPRO) 20 MG tablet Other Visit Diagnoses Need for vaccination Relevant Medications meningococcal conjugate (MENACTRA) 4 mcg/0.5 mL injection Other Relevant Orders Meningococcal conjugate vaccine 4-valent IM (MENACTRA) (For persons age 9 months and older) (Completed) For any new medications prescribed today, patient was educated about indications for the medication, how to take the medication and potential side effects of the medications. Deepa Sandoval CNP documented in this encounter [facility] 08-04-2021 Instructions Deepa Sandoval CNP - 08/04/2021 9:16 AM EST Problem List Items Addressed This Visit Digestive GERD (gastroesophageal reflux disease) Stop the Omeprazole and start Famotidine to see if this helps with your symptoms. If not let me know. Relevant Medications famotidine (PEPCID) 40 MG tablet Other Anxiety - Primary Will increase your Lexapro to 20 mg daily and your Buspar to 10 mg three times a day as needed. Still recommend counseling, eating healthy, being active. [place] [phone] [facility], [address] Email: [email or web address] & Relevant Medications busPIRone (BUSPAR) 10 MG tablet escitalopram oxalate (LEXAPRO) 20 MG tablet Other Visit Diagnoses Need for vaccination Relevant Medications meningococcal conjugate (MENACTRA) 4 mcg/0.5 mL injection Other Relevant Orders Meningococcal conjugate vaccine 4-valent IM (MENACTRA) (For persons age 9 months and older) (Completed) If any referrals were placed at the time of your visit please allow 2 weeks for processing. If you haven't heard from anyone within 2 weeks please contact my office so we can look into the status of your referral. If you were given any labs today please ensure they are completed according to the directions given. Once labs are completed please allow 1-2 weeks for us to receive the results, review them, and let you know what steps, if any, are needed next. If you haven't heard from us after that please call to inquire. If labs were ordered to be done PRIOR to your next visit we will discuss the results at the time of your office visit. If any procedures or imaging studies were ordered that must be prior authorized please give us 2 weeks to get them approved. Once approved someone should call you to schedule them or give you a date and time that they were scheduled for. If you haven't heard anything within 2 weeks of the office visit please call the office so we can look into their status. Customer Service/Billing Questions: [phone] MyChart Assistance: [phone] or [phone] Financial Assistance: [phone] or [phone] documented in this encounter [facility] 08-04-2021 Miscellaneous Notes Associated Problem(s): GERD (gastroesophageal reflux disease) Stop the Omeprazole and start Famotidine to see if this helps with your symptoms. If not let me know. Associated Problem(s): Anxiety Will increase your Lexapro to 20 mg daily and your Buspar to 10 mg three times a day as needed. Still recommend counseling, eating healthy, being active. [place] [id number] [facility] [address] Email: [email or web address] & documented in this encounter [facility] 05-23-2021 Instructions Deepa Sandoval CNP - 05/23/2021 1:30 PM EDT Problem List Items Addressed This Visit Digestive GERD (gastroesophageal reflux disease) Would recommend trying an elimination diet for 30 days. Get on Intrinsic-ID and get more information to see if this is something you would like to try to figure out exactly what is bothering your stomach. Other Anxiety - Primary Will increase your lexapro to 15 mg daily to see if this helps. Also prescribed Buspar you can use up to 3x a day for anxiety. Recommend eating healthy, exercise.... Anxiety is very difficult to treat with just medication. Relevant Medications busPIRone (BUSPAR) 5 MG tablet escitalopram oxalate (LEXAPRO) 10 MG tablet Other Visit Diagnoses Need for influenza vaccination Relevant Medications flu vacc [id number] 6mos up,PF, (FLUZONE QUAD) injection Other Relevant Orders Influenza IIV4 6mo or >,Fluzone Quad (Completed) If any referrals were placed at the time of your visit please allow 2 weeks for processing. If you haven't heard from anyone within 2 weeks please contact my office so we can look into the status of your referral. If you were given any labs today please ensure they are completed according to the directions given. Once labs are completed please allow 1-2 weeks for us to receive the results, review them, and let you know what steps, if any, are needed next. If you haven't heard from us after that please call to inquire. If labs were ordered to be done PRIOR to your next visit we will discuss the results at the time of your office visit. If any procedures or imaging studies were ordered that must be prior authorized please give us 2 weeks to get them approved. Once approved someone should call you to schedule them or give you a date and time that they were scheduled for. If you haven't heard anything within 2 weeks of the office visit please call the office so we can look into their status. Customer Service/Billing Questions: [phone] [facility] Assistance: [phone] or [phone] Financial Assistance: [phone] or [phone] documented in this encounter [facility] 05-23-2021 Miscellaneous Notes Associated Problem(s): Anxiety Will increase your lexapro to 15 mg daily to see if this helps. Also prescribed Buspar you can use up to 3x a day for anxiety. Recommend eating healthy, exercise.... Anxiety is very difficult to treat with just medication. Associated Problem(s): GERD (gastroesophageal reflux disease) Would recommend trying an elimination diet for 30 days. Get on Intrinsic-ID and get more information to see if this is something you would like to try to figure out exactly what is bothering your stomach. documented in this encounter [facility] 05-23-2021 History of Present illness Narrative Images from the original note were not included. Subjective Patient ID: Nathalie Lundberg is a 16 y.o. female. Patient is here today to establish care, she is new to this provider and new to this practice. Patient was previously established at [facility]. Anxiety: Patient states she has struggled with anxiety for the past 1-2 years. She was started on Lexapro about 2 months ago, currently on 10 mg daily. She states that she is very fidgety, worrying a lot, restless, panic attacks, and stomach upset. She is not sure the Lexapro is helping at this time. She states that she did have labwork done a few months ago, will get records. She has been taking this medication in the morning. She has never taken any medications for breakthrough anxiety. She denies side effects or issues with the medication. Patient is also established in counseling through [facility]. GERD: Patient was diagnosed with GERD a few years ago. She states she had testing done but unsure exactly what tests were done, she had all of this done at here in [place], will request records. She is currently on Omeprazole 20 mg a day. She states sometimes it helps and sometimes it does not help. She sates her typical symptoms include nausea and waterbrash, she states overall she just does not feel well. She states symptoms get worse with certain food choices and stress. She states soda really upsets her stomach. The following were reviewed and updated as appropriate for today's visit: allergies, current medications, past family history, past medical history, past social history, past surgical history and problem list. Patient's Medications New Prescriptions BUSPIRONE (BUSPAR) 5 MG TABLET Take 1 (one) tablet (5 mg total) by mouth 3 (three) times a day as needed (anxiety) . Previous Medications FLU VACC [id number] 6MOS UP,PF, (FLUZONE QUAD) INJECTION Sign this order in conjunction with the immunization order to satisfy [place] Board of Pharmacy Positive ID requirements for immunization orders. . LEVONORGESTREL (KYLEENA) IUD IUD 1 each by Intrauterine route once . OMEPRAZOLE (PRILOSEC) 20 MG CAPSULE Take 20 mg by mouth daily . Modified Medications Modified Medication Previous Medication ESCITALOPRAM OXALATE (LEXAPRO) 10 MG TABLET escitalopram oxalate (LEXAPRO) 10 MG tablet Take 1.5 (one and a half) tablets (15 mg total) by mouth daily . Take 10 mg by mouth daily . Discontinued Medications No medications on file Review of Systems Review of Systems Constitutional: Negative for activity change and fatigue. HENT: Negative for hearing loss. Eyes: Negative for visual disturbance. Respiratory: Negative for cough, chest tightness and shortness of breath. Cardiovascular: Negative for chest pain and palpitations. Musculoskeletal: Negative for gait problem. Skin: Negative. Neurological: Negative for dizziness, weakness, light-headedness and headaches. Psychiatric/Behavioral: Negative for agitation and decreased concentration. The patient is nervous/anxious. Vitals: 05/23/21 1303 BP: 99/65 BP Location: Left arm Patient Position: Sitting Pulse: 89 Resp: 16 Temp: 98.9 F (37.2 C) TempSrc: Temporal SpO2: 97% Weight: 64 kg (141 lb) Height: 5' 5 Body mass index is 23.46 kg/m . Physical Exam Physical Exam Constitutional: Appearance: She is well-developed. HENT: Right Ear: External ear normal. Left Ear: External ear normal. Nose: Nose normal. Eyes: General: Lids are normal. Conjunctiva/sclera: Conjunctivae normal. Cardiovascular: Rate and Rhythm: Normal rate and regular rhythm. Heart sounds: Normal heart sounds. No murmur heard. Pulmonary: Effort: Pulmonary effort is normal. Breath sounds: Normal breath sounds. Musculoskeletal: Cervical back: Normal range of motion. Comments: Normal gait Skin: General: Skin is warm and dry. Neurological: Mental Status: She is alert and oriented to person, place, and time. GCS: GCS eye subscore is 4. GCS verbal subscore is 5. GCS motor subscore is 6. Psychiatric: Speech: Speech normal. Behavior: Behavior normal. OARRS/NARxCHECK Report Received and Assessed: No data found Date controlled substance agreement signed: No data found Date of last drug screen: No data found Functional Assessment: No data found Assessment/Plan Problem List Items Addressed This Visit Digestive GERD (gastroesophageal reflux disease) Would recommend trying an elimination diet for 30 days. Get on Intrinsic-[employer] and get more information to see if this is something you would like to try to figure out exactly what is bothering your stomach. Other Anxiety - Primary Will increase your lexapro to 15 mg daily to see if this helps. Also prescribed Buspar you can use up to 3x a day for anxiety. Recommend eating healthy, exercise.... Anxiety is very difficult to treat with just medication. Relevant Medications busPIRone (BUSPAR) 5 MG tablet escitalopram oxalate (LEXAPRO) 10 MG tablet Other Visit Diagnoses Need for influenza vaccination Relevant Medications flu vacc [id number] 6mos up,PF, (FLUZONE QUAD) injection Other Relevant Orders Influenza IIV4 6mo or >,Fluzone Quad (Completed) For any new medications prescribed today, patient was educated about indications for the medication, how to take the medication and potential side effects of the medications. Deepa Sandoval CNP documented in this encounter [facility] 03-11-2021 History of Present illness Narrative Nathalie is here for follow-up on anxiety and depression. She was seen approximately 1 month ago. At that time her ROCIO-7 was 18 and PHQ-9 was 9. We discussed counseling and different treatment options. Ultimately she decided to try medication management. We started Escitalopram at a very low dose of 5 mg once daily. She reports that she has been taking it consistently over the last, reports good compliance good tolerance and fair symptom control. Overall she is feeling slightly. She is sleeping well. denies si or HI.She is still experiencing some abdominal pain and nausea but reports an overall improvement in symptoms. She is continuing to take the omeprazole daily also feels that the antidepressant is helping her abdominal pain as well.She has no new concerns today. [facility] Work Phone: 07-30-2020 History of Present illness Narrative 15-year-old G0 presents my office for pelvic pain deep dyspareunia. Patient's pelvic pain started since spring of this year. Patient notes its intermittent. Patient notes once in a while every few days. Patient has lasted 30 minutes to an hour. Patient also notes there is no aggravating or factors. Patient has no trouble with bowel or bladder. Patient notes some pain with deep insertion. Patient had IUD placed 2 years ago and has been doing well. Patient in no pain or any symptoms was initially placed. Patient has no other acute concerns. Patient sexually active with one partner. [address] Work Phone: 03-13-2018 History of Present illness Narrative NATHALIE LUNDBERG presents with complaints of gradual onset of moderate anxiety starting about 3 years ago. She is currently experiencing anxiety. Her symptoms are caused by no known event. Symptoms are improved by quiet, but not by isolation and medications. Symptoms are made worse by stress and new situations, but not by caffeine, illicit drug use, fatigue and lack of sleep. Symptoms are worsening. Pertinent Medical History: no thyroid disease, no mitral valve prolapse, no coronary artery disease, no alcohol abuse, no illicit drug abuse, no anxiety disorder, no panic disorder, no major depression, no bipolar disorder, no personality disorder, no social phobia, no PTSD, no schizophrenia, no irritable bowel disorder, no migraine headaches and no chronic fatigue syndrome. Family History: anxiety disorder and depression, but not panic disorder, schizophrenia, alcohol abuse and illicit drug abuse.Associated symptoms include difficulty concentrating, excessive worry, fatigue, insomnia, irritability, muscle tension, nervousness, panic attacks, sweaty palms, gastrointestinal complaints and headaches, but no sleep disruption, no chest pain, no choking sensation, no dizziness, no fainting, no flushing, no heart palpitations, no hyperventilation, no muscle pain, no muscle spasms, no paresthesia, no racing heart, no shortness of breath, no sighing respiration and no tremors.She feels she has had anxiety for years, but has never taken any medications. She is seeing a counselor at [facility] for 5 months now. She feels she has better coping skills, but still worries all the time. Denies SI/HI.Mother has depression and anxiety.She was seen February 11 for nausea and abdominal pain. Started omeprazole 3 weeks ago. Her stomach symptoms have improved, but she notices worsening GI symptoms when she is stress or worrying. She would like to discuss medication that will help with her symptoms. [facility] Work Phone: Evaluation + Plan note No data available for this section [facility] Evaluation note Diagnosis Anxiety- Primary Anxiety state, unspecified Gastroesophageal reflux disease, unspecified whether esophagitis present Need for influenza vaccination Need for prophylactic vaccination and inoculation against [facility] Diagnosis Anxiety- Primary Anxiety state, unspecified Need for vaccination Need for prophylactic vaccination and inoculation against unspecified single disease Gastroesophageal reflux disease, unspecified whether esophagitis present [facility] Diagnosis Anxiety- Primary Anxiety state, unspecified Generalized anxiety disorder Irritable bowel syndrome with diarrhea Irritable bowel syndrome Gastroesophageal reflux disease, unspecified whether esophagitis present [facility] Diagnosis Irritable bowel syndrome with diarrhea Irritable bowel syndrome [facility] Diagnosis Irritable bowel syndrome with diarrhea Irritable bowel syndrome [facility] Diagnosis Gastroesophageal reflux disease, unspecified whether esophagitis present- Primary Irritable bowel syndrome with diarrhea Irritable bowel syndrome GERD (gastroesophageal reflux disease)- Primary Esophageal reflux Gastroesophageal reflux disease, unspecified whether esophagitis present [facility] Diagnosis Annual physical exam- Primary Routine general medical examination at a health care facility Vaginal discharge Leukorrhea, not specified as infective [facility] Diagnosis Generalized anxiety disorder [facility] Diagnosis General medical exam- Primary Unspecified general medical examination Generalized anxiety disorder [facility] Diagnosis Gastroesophageal reflux disease, unspecified whether esophagitis present- Primary Irritable bowel syndrome with diarrhea Irritable bowel syndrome Lipid screening Screening for lipoid disorders Fatigue, unspecified type Epigastric pain Abdominal pain, epigastric documented in this encounter [facility] Work Phone: Evaluation note* Diagnosis Postprandial epigastric pain- Primary Vitamin D deficiency documented in this encounter [facility] Work Phone: Evaluation note* Diagnosis Postprandial epigastric pain- Primary Irritable bowel syndrome with diarrhea Irritable bowel syndrome documented in this encounter [facility] Work Phone: Evaluation note* Diagnosis Acute upper respiratory infection- Primary Acute upper respiratory infections of unspecified site Non-recurrent acute serous otitis media of right ear documented in this encounter [facility] Work Phone: Evaluation note* Diagnosis Well woman exam- Primary Routine general medical examination at a health care facility [facility] Diagnosis General medical exam- Primary Unspecified general medical examination Gastroesophageal reflux disease without esophagitis Esophageal reflux Generalized anxiety disorder [facility] Diagnosis Nausea Nausea alone Constipation, unspecified constipation type Irritable bowel syndrome with diarrhea Irritable bowel syndrome documented in this encounter [facility] Work Phone: Evaluation note* Diagnosis Irritable bowel syndrome with diarrhea- Primary Irritable bowel syndrome Colitis Other and unspecified noninfectious gastroenteritis and colitis Mild depression Depressive disorder, not elsewhere classified Gastroesophageal reflux disease, unspecified whether esophagitis present documented in this encounter [facility] Work Phone: Evaluation note* Diagnosis Anxiety- Primary Anxiety state, unspecified Gastroesophageal reflux disease, unspecified whether esophagitis present Need for influenza vaccination Need for prophylactic vaccination and inoculation against influenza Anxiety- Primary Anxiety state, unspecified Need for vaccination Need for prophylactic vaccination and inoculation against unspecified single disease Gastroesophageal reflux disease, unspecified whether esophagitis present Anxiety- Primary Anxiety state, unspecified Generalized anxiety disorder Irritable bowel syndrome with diarrhea Irritable bowel syndrome Gastroesophageal reflux disease, unspecified whether esophagitis present Encounter for contraceptive management, unspecified type- Primary Vaginal discharge Leukorrhea, not specified as infective [facility] Diagnosis Colitis- Primary Other and unspecified noninfectious gastroenteritis and colitis Irritable bowel syndrome with diarrhea Irritable bowel syndrome documented in this encounter [facility] Work Phone: Evaluation note* Diagnosis Irritable bowel syndrome with diarrhea- Primary Irritable bowel syndrome Colitis Other and unspecified noninfectious gastroenteritis and colitis documented in this encounter [facility] Work Phone: Evaluation note* Diagnosis Colitis Other and unspecified noninfectious gastroenteritis and colitis documented in this encounter [facility] Work Phone: Evaluation note* Diagnosis Nausea- Primary Nausea alone Constipation, unspecified constipation type Irritable bowel syndrome with diarrhea Irritable bowel syndrome documented in this encounter [facility] Work Phone: Evaluation note* Diagnosis Acute non-recurrent maxillary sinusitis- Primary documented in this encounter [facility] Work Phone: Evaluation note* Diagnosis Hives- Primary Unspecified urticaria Colitis Other and unspecified noninfectious gastroenteritis and colitis Irritable bowel syndrome with diarrhea Irritable bowel syndrome documented in this encounter [facility] Work Phone: Evaluation note* Diagnosis Mucopurulent conjunctivitis of both eyes- Primary documented in this encounter [facility] Work Phone: Evaluation note* Diagnosis Allergic rhinitis, unspecified seasonality, unspecified trigger- Primary Mucopurulent conjunctivitis of both eyes documented in this encounter [facility] Work Phone: Evaluation note* Diagnosis Acute bacterial sinusitis- Primary Acute sinusitis, unspecified documented in this encounter [facility] Work Phone: History of Present illness Narrative* NATHALIE LUNDBERG presents with complaints of nausea. * Associated symptoms include queasiness, regurgitation, abdominal pain, anorexia, bloating, diarrhea, vertigo and symptoms, but no emesis, no constipation, no dehydration, no hematemesis, nomelena, no jaundice, no fatigue, no fever, no weight loss, no chest pain, no headache, no stiff neck, no weakness and no neurologic symptoms. * taking famotidine, but is not helping anymore. * Epidsodes of diarrhea after every meal. * She reports that she has had these symptoms for years but they have worsened over the last month. * Possibly of . * Reports that her mom and grandma have had similar symptoms their entire lives, but they just deal with it. [facility] Work Phone: Hospital Discharge instructions No data available for this section [facility] Instructions* Attachments The following attachments cannot be sent through Care Everywhere. * Diet: Low-FODMAP: General Info (Telugu) [facility] No data available for this section [facility] Summary Purpose Family History No Family History Records FoundUnknown Family Member Name Dates Details Family history of hypertensi on: Mother(V17.49, Z82.49) Status:Active Family history of diabetes m ellitus: Father(V18.0, Z83.3) Status:Active Family history of gastroesop hageal reflux disease: Sister(V18.59, Z83.79) Status:Active Unknown Family Member Name Dates Details Family history of hypertensi on: Mother(V17.49, Z82.49) Status:Active Family history of diabetes m ellitus: Father(V18.0, Z83.3) Status:Active Family history of gastroesop hageal reflux disease: Sister(V18.59, Z83.79) Status:Active Unknown Family Member Name Dates Details Family history of gastroesop hageal reflux disease: Sister(V18.59, Z83.79) Status:Active Family history of diabetes m ellitus: Father(V18.0, Z83.3) Status:Active Family history of hypertensi on: Mother(V17.49, Z82.49) Status:Active Unknown Family Member Name Dates Details Family history of hypertensi on: Mother(V17.49, Z82.49) Status:Active Family history of diabetes m ellitus: Father(V18.0, Z83.3) Status:Active Family history of gastroesop hageal reflux disease: Sister(V18.59, Z83.79) Status:Active Family history of migraine h eadaches: Mother(V17.2, Z82.0) Status:Active Unknown Family Member Name Dates Details Family history of hypertensi on: Mother(V17.49, Z82.49) Status:Active Family history of diabetes m ellitus: Father(V18.0, Z83.3) Status:Active Family history of gastroesop hageal reflux disease: Sister(V18.59, Z83.79) Status:Active Family history of migraine h eadaches: Mother(V17.2, Z82.0) Status:Active Unknown Family Member Name Dates Details Family history of hypertensi on: Mother(V17.49, Z82.49) Status:Active Family history of diabetes m ellitus: Father(V18.0, Z83.3) Status:Active Family history of gastroesop hageal reflux disease: Sister(V18.59, Z83.79) Status:Active Family history of migraine h eadaches: Mother(V17.2, Z82.0) Status:Active Unknown Family Member Name Dates Details Family history of hypertensi on: Mother(V17.49, Z82.49) Status:Active Family history of diabetes m ellitus: Father(V18.0, Z83.3) Status:Active Family history of gastroesop hageal reflux disease: Sister(V18.59, Z83.79) Status:Active Family history of migraine h eadaches: Mother(V17.2, Z82.0) Status:Active Unknown Family Member Name Dates Details Family history of hypertensi on: Mother(V17.49, Z82.49) Status:Active Family history of diabetes m ellitus: Father(V18.0, Z83.3) Status:Active Family history of gastroesop hageal reflux disease: Sister(V18.59, Z83.79) Status:Active Family history of migraine h eadaches: Mother(V17.2, Z82.0) Status:Active Unknown Family Member Name Dates Details Family history of hypertensi on: Mother(V17.49, Z82.49) Status:Active Family history of diabetes m ellitus: Father(V18.0, Z83.3) Status:Active Family history of gastroesop hageal reflux disease: Sister(V18.59, Z83.79) Status:Active Family history of migraine h eadaches: Mother(V17.2, Z82.0) Status:Active Advance Directives No Advanced Directives Records FoundDocuments on File Type Date Recorded 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 SHARP PAIN THAT COMES AND GOES. STATES IT COMES WHENEVER, NOT NECESSARILY AROUND WHEN SHE SHOULD HAVE A CYCLE. X'S FEW MONTHS. LMP: IUDpt here for f/u GERD., medication is improving sx but feels that her anxiety is making sx worse.pt here for medcheck , no concerns. Reason for Referral Specialty Diagnoses / Procedures Referred By Contac t Referred To Contact Radiology Diagnoses Epigastric pain Procedures US gallbladder Brendan Carrillo MD [address] [place] [address] Referral ID Status Reason Start Date Expiration Date Visits Requested Visits Authorized [id number] Authorized Perform Procedure 03/19/2023 09/15/2023 1 1 Specialty Diagnoses / Procedures Referred By Contac t Referred To Contact Radiology Diagnoses Postprandial epigastric pain Procedures NM hepatobiliary Brendan Carrillo MD [address] [place] [address] Referral ID Status Reason Start Date Expiration Date Visits Requested Visits Authorized [id number] Authorized Perform Procedure 04/10/2023 10/07/2023 3 3 Specialty Diagnoses / Procedures Referred By Contac t Referred To Contact Gastroenterology Diagnoses Postprandial epigastric pain Irritable bowel syndrome with diarrhea Procedures Colonoscopy Diagnostic MA COLONOSCOPY FLX DX W/COLLJ SPEC WHEN PFRMD MA COLONOSCOPY W/BIOPSY SINGLE/MULTIPLE MA COLSC FLX W/RMVL OF TUMOR POLYP LESION SNARE TQ MA COLSC FLX W/REMOVAL LESION BY HOT BX FORCEPS Brendan Carrillo MD [address] [place] [address] Referral ID Status Reason Start Date Expiration Date V isits Requested Visits Authorized [id number] Pending Review 05/10/2023 11/06/2023 1 1 Specialty Diagnoses / Procedures Referred By Contac t Referred To Contact Gastroenterology Diagnoses Nausea Constipation, unspecified constipation type Irritable bowel syndrome with diarrhea Procedures Colonoscopy Diagnostic MA COLONOSCOPY FLX DX W/COLLJ SPEC WHEN PFRMD MA COLONOSCOPY W/BIOPSY SINGLE/MULTIPLE MA COLSC FLX W/RMVL OF TUMOR POLYP LESION SNARE TQ MA COLSC FLX W/REMOVAL LESION BY HOT BX FORCEPS Brendan Carrillo MD [address] [place] [address] Referral ID Status Reason Start Date Expiration Date V isits Requested Visits Authorized [id number] Authorized 03/25/2024 03/25/2025 1 1 Specialty Diagnoses / Procedures Referred By Contac t Referred To Contact Radiology Diagnoses Colitis Procedures CT abdomen pelvis w IV contrast Brendan Carrillo MD [address] [place] [address] Referral ID Status Reason Start Date Expiration Date Visits Requested Visits Authorized [id number] Authorized Perform Procedure 03/05/2024 03/05/2025 1 1 Specialty Diagnoses / Procedures Referred By Contact Referred To Contact Gastroenterology Diagnoses Nausea Procedures Esophagogastroduodenoscopy (EGD) MA ESOPHAGOGASTRODUODENOSCOPY TRANSORAL DIAGNOSTIC MA EGD TRANSORAL BIOPSY SINGLE/MULTIPLE Brendan Carrillo MD [address] [place] [address] Referral ID Status Reason Start Date Expiration Date V isits Requested Visits Authorized [id number] Pending Review 03/25/2024 03/25/2025 1 1 Referral ID Status Reason Start Date Expiration Date V isits Requested Visits Authorized [id number] Pending Review 03/25/2024 03/25/2025 1 1 Additional Source Comments INFORMATION SOURCE (unrecogn ized section and content) DATE CREATED AUTHOR 04/10/2018 [facility] DATE CREATED AUTHOR AUTHOR'S ORGANIZ ATION 12/22/2018 [facility] DATE CREATED AUTHOR AUTHOR'S ORGANIZ ATION 04/12/2021 [employer] DATE CREATED AUTHOR AUTHOR'S ORGANIZ ATION 06/10/2022 [facility] DATE CREATED AUTHOR AUTHOR'S ORGANIZ ATION 03/22/2023 [facility] DATE CREATED AUTHOR AUTHOR'S ORGANIZ ATION 01/25/2024 [facility] DATE CREATED AUTHOR AUTHOR'S ORGANIZ ATION 02/03/2024 [facility] DATE CREATED AUTHOR AUTHOR'S ORGANIZ ATION 03/24/2024 [facility] DATE CREATED AUTHOR AUTHOR'S ORGANIZ ATION 06/12/2024 [facility] DATE CREATED AUTHOR AUTHOR'S ORGANIZ ATION 06/14/2024 [facility] DATE CREATED AUTHOR AUTHOR'S ORGANIZ ATION 12/26/2024 [facility] DATE CREATED AUTHOR AUTHOR'S ORGANIZ ATION 01/29/2025 [facility] DATE CREATED AUTHOR AUTHOR'S ORGANIZ ATION 02/27/2025 [facility] DATE CREATED AUTHOR AUTHOR'S ORGANIZ ATION 03/04/2025 [facility] Reason for Visit (unrecogniz ed section and content) Reason Comments Establish Care Reason Comments Follow-up Med check Reason Onset Date Comments Medication Refill 11/22/2021 Reason Onset Date Comments Medication Refill 12/07/2021 Specialty Diagnoses / Procedures Referred By Suleiman eisenberg Referred To Contact Gastroenterology Diagnoses Irritable bowel syndrome with diarrhea Ricky Pritchard MD [address] [address] Severino Gatica MD [address] [place] [address] Referral ID Status Reason Start Date Expiration Date Visits Re quested Visits Authorized [id number] Closed 03/31/2022 03/31/2023 1 1 Reason Comments Annual Exam Patient would like t o discuss having IUD removed and replaced. No previous pap due to age. IUD was placed Jun 2019 by [facility]. Patient complains of cramping. Reason Onset Date Comments Medication Refill 10/24/2022 Reason Comments Annual Exam Reason Comments Follow-up New patient visit Reason Comments Follow-up FU LABS AND US Reason Comments Follow-up Fu hida scan Reason Comments URI Sinus congestion, ho arseness, dizzy, headache X 2 days Reason Comments Annual Exam Well woman, no previ ous paps. No issues. Declines flu shot Reason Comments Annual Exam Gastroesophageal Reflux Specialty Diagnoses / Procedures Referred By Suleiman eisenberg Referred To Contact Diagnoses Nausea Irritable bowel syndrome with diarrhea Procedures MA COLONOSCOPY FLX DX W/COLLJ SPEC WHEN PFRMD MA COLONOSCOPY W/BIOPSY SINGLE/MULTIPLE MA COLSC FLX W/REMOVAL LESION BY HOT BX FORCEPS MA COLSC FLX W/RMVL OF TUMOR POLYP LESION SNARE TQ [id number] [address] [place] [address] [phone] Referral ID Status Reason Start Date Expiration Date Visits Re quested Visits Authorized [id number] 1 1 Reason Comments Follow-up 1 mo fu colon Reason Comments Procedure IUD removal and inse rt - Dara. Reason Comments Follow-up Discuss meds not hel ping much with her symptoms Reason Comments Follow-up [address] NOT SCHED ULED UNTIL THE Specialty Diagnoses / Procedures Referred By Suleiman eisenberg Referred To Contact Radiology Diagnoses Colitis Procedures CT abdomen pelvis w IV contrast Brendan Carrillo MD [address] [place] [address] Referral ID Status Reason Start Date Expiration Date Visits Requested Visits Authorized [id number] Authorized Perform Procedure 03/05/2024 03/05/2025 1 1 Reason Comments Follow-up Fu ct scan Reason Comments Flu Symptoms Sore throat, NEVAREZ, cou gh Vomiting Vomiting x 1 day Reason Comments Follow-up PT CO RASH VERY ITCH Y AND UNCOMFORTABLE EVERYWHERE Reason Comments BL eyes discharge Eye redness, face sw elling, sore throat x yesterday Reason Comments Follow-up Pt co allergic react ion eyes and throat was seen by urgent care given drops but not any better Reason Comments URI Sore throat, hurts t o swallow, sinus drainage, congestion x 1 week Care Teams (unrecognized sec tion and content) Firm Administrator Relationship Specialty Start Date End Date SpringDeepa CNP [address] [place] [address] PCP - General Nurse Practitioner 05/23/21 Firm Administrator Relationship Specialty Start Date End Date Spring[employer]a CNP [address] [place] [address] PCP - General Nurse Practitioner 05/23/21 Firm Administrator Relationship Specialty Start Date End Date SpringDeepa CNP [address] [place] [id number] PCP - General Nurse Practitioner 05/23/21 Firm Administrator Relationship Specialty Start Date End Date [employer]a [employer] [address] [address] PCP - General Nurse Practitioner 05/23/21 Firm Administrator Relationship Specialty Start Date End Date Deepa Sandoval, [employer] [address] [address] PCP - General Nurse Practitioner 05/23/21 Firm Administrator Relationship Specialty Start Date End Date Ricky Pritchard MD [address] [address] PCP - General Family Medicine 03/31/22 Firm Administrator Relationship Specialty Start Date End Date Ricky Pritchard MD [address] [address] PCP - General Family Medicine 03/31/22 Firm Administrator Relationship Specialty Start Date End Date Ricky Pritchard MD [address] [address] PCP - General Family Medicine 03/31/22 Firm Administrator Relationship Specialty Start Date End Date Ricky Pritchard MD [address] [address] PCP - General Family Medicine 03/31/22 Firm Administrator Relationship Specialty Start Date End Date Brendan Carrillo MD [address] [place] [id number] PCP - General Internal Medicine 03/19/23 Firm Administrator Relationship Specialty Start Date End Date Brendan Carrillo MD [address] [place] [id number] PCP - General Internal Medicine 03/19/23 Firm Administrator Relationship Specialty Start Date End Date Brendan Carrillo MD [address] [facility] [place] [address] PCP - General Internal Medicine 03/19/23 Firm Administrator Relationship Specialty Start Date End Date Brendan Carrillo MD [address] [place] [address] PCP - General Internal Medicine 03/19/23 Firm Administrator Relationship Specialty Start Date End Date Ricky Pritchard MD [address] [place] [id number] PCP - General Family Medicine 03/31/22 Firm Administrator Relationship Specialty Start Date End Date Ricky Pritchard MD [facility] [address] [address] PCP - General Family Medicine 03/31/22 Firm Administrator Relationship Specialty Start Date End Date Brendan Carrillo MD [address] [place] [id number] PCP - General Internal Medicine 03/19/23 Firm Administrator Relationship Specialty Start Date End Date Brendan Carrillo MD [address] [place] [address] PCP - General Internal Medicine 03/19/23 Firm Administrator Relationship Specialty Start Date End Date Ricky Pritchard MD [address] [address] PCP - General Family Medicine 03/31/22 Firm Administrator Relationship Specialty Start Date End Date Brendan Carrillo MD [address] [place] [address] PCP - General Internal Medicine 03/19/23 Firm Administrator Relationship Specialty Start Date End Date Brendan Carrillo MD [address] [place] [address] PCP - General Internal Medicine 03/19/23 Firm Administrator Relationship Specialty Start Date End Date Brendan Carrillo MD [address] [place] [place] [address] PCP - General Internal Medicine 03/19/23 Firm Administrator Relationship Specialty Start Date End Date Brendan Carrillo MD [address] [place] [address] PCP - General Internal Medicine 03/19/23 Firm Administrator Relationship Specialty Start Date End Date Brendan Carrillo MD [address] [place] [address] PCP - General Internal Medicine 03/19/23 Firm Administrator Relationship Specialty Start Date End Date Brendan Carrillo MD [address] [place] [address] PCP - General Internal Medicine 03/19/23 Firm Administrator Relationship Specialty Start Date End Date Brendan Carrillo MD [address] [place] [address] PCP - General Internal Medicine 03/19/23 <item> Privacy Markings (unrecogniz ed section and content) Section Author: Ayla Saenz PROHIBITION ON REDISCLOSURE OF CONFIDENTIAL INFORMATION This notice accompanies a disclosure of information concerning a client made to you with the consent of such client. FOR RECORDS PERTAINING TO PATIENTS WHO ARE OR HAVE BEEN ENROLLED IN A CHEMICAL DEPENDENCY/SUBSTANCEABUSE PROGRAM, SOME INFORMATION MAY BE OMITTED. This clinical summary was aggregated from multiple sources. Caution should be exercised in using it in the provision of clinical care. This summary normalizes information from multiple sources, and as a consequence, information in this document may materially change the coding, format and clinical context of patient data. In addition, data may be omitted in some cases. CLINICAL DECISIONS SHOULD BE BASED ON THE PRIMARY CLINICAL RECORDS. [employer] [facility]. provides no warranty or guarantee of the accuracy or completeness of information in this document.
== END | disposition home or self-care (01) ==
LOC: LAB 10:25
PROVIDERS: PCP Internal Medicine; Referring Provider Otolaryngology; Visit Provider Otolaryngology
DX: T78.40XA Allergy, unspecified, initial encounter (principal)
CPT/HCPCS: 36415; 82785; 86003